=== PATIENT | male | born 1945 | race Two or more races ===

== ENCOUNTER 2024-09-05 11:04 | Inpatient (IN) | payer MEDICARE, BC, SELFPAY ==
[2024-09-05] VITALS (12 sets, daily range): BP systolic 68–136; BP diastolic 51–67; PULSE 65–96; RESP 16–96; TEMP 36.1–38; O2SAT 94–99; BMI 25.7
--- NOTE | 2024-09-05 | XR_ITS ---
Examinations: MRI Brain without intravenous contrast. MRA brain without intravenous contrast. 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 The optic chiasm and infundibular stalk are not remarkable. Prepontine and interpeduncular cisterns are not enlarged. No localized enlargement of the medulla or macey. Fourth ventricle and cerebellar tonsils normal in position. Subacute hemorrhage is not seen. Fourth ventricle is midline. Mass in the cerebellopontine angle region is not evident. 7th and 8th nerve complexes exhibits symmetry. Globes are symmetrical with no retro-orbital mass. Increased white matter signal moderate Diffusion-weighted images demonstrate no focus of restricted diffusion Mass-effect upon the ventricular system is not identified. MRA carotid images no significant carotid stenoses. MRA brain images no large vessel occlusions Impression: Negative for acute hemorrhage mass effect or midline shift No acute infarct No large vessel occlusions
--- NOTE | 2024-09-05 11:19 | XR_ITS ---
Examination: CTA carotids with intravenous contrast CTA brain, head with intravenous contrast. 2-D sagittal, coronal reconstructions. 3-D reconstructions. Exam date and time: September 05, 2024 1125 hours INDICATIONS: Stroke alert, onset right-sided body weakness with slurred speech beginning CTDI: vol (mGy) 39.2 DLP: (mGycm) 473 Technique: Multiple CTA axial brain, head carotid images post intravenous contrast injection 75 cc, [id number]. 2-D sagittal, coronal reconstructions. 3-D reconstructions, 3-D post processing including vascular maximum intensity projection images. Low dose protocols were performed. One or more of the following dose reduction techniques were used; automated exposure control, adjustment of the mA and/or KV according to patient size, use of iterative reconstruction technique. Findings: No significant neck arterial stenoses No common carotid carotid bifurcation or significant internal carotid artery stenoses Dominant left vertebral artery with no critical stenoses No cerebral large vessel arterial occlusions thrombus dissection or cerebral aneurysm IMPRESSION: No significant neck arterial stenoses No cerebral large vessel arterial occlusions, thrombus, dissection or cerebral aneurysm Recommend repeat brain MRI MRA without contrast stroke protocol follow-up
--- NOTE | 2024-09-05 11:19 | EKG_ITS ---
[facility] (Formerly [facility]) Test Date: 2024-09-05 Pat Name: FARZANEH PRICE Department: Room: - Gender: Male [employer] Teacher: NEYMAR : 1945 Requested By: Moises Land Order Number: [id number] Reading MD: Moises Ladn Measurements Intervals [place] Rate: 58 P: [place]: QRS: -34 QRSD: 93 T: -29 QT: 432 QTc: 425 Interpretive Statements ATRIAL FIBRILLATION WITH SLOW VENTRICULAR RESPONSE MARKED LEFT AXIS DEVIATION LOW QRS VOLTAGE IN PRECORDIAL LEADS POSSIBLE ANTERIOR MYOCARDIAL INFARCTION , PROBABLY OLD Compared to ECG 07/20/2024 16:30:24 No significant changes /[id number]
--- NOTE | 2024-09-05 11:19 | XR_ITS ---
Examination: CT brain head without contrast. 2-D sagittal coronal reconstructions Date and time of exam:September 05, 2024 11:22 AM Comparison July 20, 2024 INDICATIONS: Stroke alert, onset focal neurologic deficit today, right-sided body weakness slurred speech beginning this morning, 8mm acute infarct left basal ganglia on brain MRI July 21, 2024 CTDI: vol (mGy):52.9 DLP: (mGycm):1151 Technique: Multiple CT axial sections of the brain have been obtained, 5 mm slice thickness. Contrast has not been administered. 2-D sagittal, coronal reconstructions have been obtained Low dose protocols were performed. One or more of the following dose reduction techniques were used; automated exposure control, adjustment of the mA and/or KV according to patient size, use of iterative reconstruction technique. Findings: No significant ventricular enlargement. Subcentimeter bilateral indeterminate basal ganglia infarcts Axial image 31 demonstrates 11 mm left brainstem infarct pontine level Intra-axial or extra-axial hemorrhage density is not seen. No mass effect or midline shift Basal cisterns are not remarkable. Fourth ventricle is midline. Cranial vault intact. Impression: Negative for acute hemorrhage, mass effect or midline shift Bilateral basal ganglia and left brainstem infarcts as above, the 11 mm left brainstem infarct may be acute, the appearance should be clinically correlated Recommend repeat brain MRI MRA stroke protocol follow-up
[2024-09-05 11:32] LABS: Basophils # (Auto) 0.1 Thou/mm3 (0.0-0.2); Basophils % (Auto) 0 % (0-2.5); Eosinophils # (Auto) 0.1 Thou/mm3 (0.0-0.5); Eosinophils % (Auto) 0 % (0-10); Hematocrit 39.8 % (41.0-53.0); Hemoglobin 13.1 g/dL (13.5-16.0); Immature Granulocytes % (Auto) 1 % (0-0); Immature Granulocytes Auto 0.09 Thou/mm3 (0.00-0.00); Lymphocytes # (Auto) 0.4 Thou/mm3 (1.0-4.8); Lymphocytes % (Auto) 2 % (10-50); Mean Corpuscular HGB Conc 32.9 g/dl (31.0-37.0); Mean Corpuscular Hemoglobin 30.4 pg (25.0-35.0); Mean Corpuscular Volume 92 fL (80-100); Monocytes # (Auto) 0.5 Thou/mm3 (0.0-0.8); Monocytes % (Auto) 2 % (0-12); Neutrophils # (Auto) 18.6 Thou/mm3 (1.8-7.7); Neutrophils % (Auto) 94 % (37-80); Nucleated Red Blood Cell % 0 /100 WBC (0); Platelet Count 165 Thou/mm3 (140-440); RDW Standard Deviation 48.1 fL (35.1-43.9); Red Blood Count 4.31 Miln/mm3 (4.50-5.90); White Blood Count 19.7 Thou/mm3 (3.8-10.6)
[2024-09-05 11:44] LABS: HCG Titer if Positive Negative
--- NOTE | 2024-09-05 11:46 | PD.EDNEURO ---
Neuro Symptoms Deficit-RME/HPI General Chief Complaint: Neuro Symptoms/Deficit Stated Complaint: POSSIBLE CVA Time Seen by Provider: 09/05/24 11:19 Arrival date/time: 09/05/24 11:04 RME / HPI RME / HPI Narrative: 79 year old male with history of CVA, hypertension, diabetes, hyperlipidemia presents to the ED BIBA from home for evaluation of right sided weakness and slurred speech today. Reports residual weakness and slurred speech after CVA in 2020. However, at ~ 08:00 am today he required assistance getting out of bed and while in getting in the shower noted he was unable to lift the right leg over the shower rail. States he lowered himself down to the floor and called 911 for help. Patient states he went to bed at his usual state of health at 20:00 hours last night. Denied head injury or LOC. Per medics, prehospital BS 107. No other complaints reported. Denies fevers, chills, chest pain, cough, shortness of breath, abdominal pain, or urinary symptoms. Neurologist: Dr. Aquino Related Data Home Medications ?Medication ?Instructions ?Recorded ?Confirmed carvedilol 3.125 mg tablet (Coreg) 6.25 mg PO BID 10/10/20 09/05/24 metformin 1,000 mg tablet 1,000 mg PO BIDAC 10/10/20 09/05/24 ferrous sulfate 325 mg (65 mg 325 mg PO QDAY 08/21/22 09/05/24 iron) tablet atorvastatin 80 mg tablet 80 mg PO QDAY 09/05/24 09/05/24 clopidogrel 75 mg tablet 75 mg PO QDAY 09/05/24 09/05/24 rosuvastatin 40 mg tablet 40 mg PO QPM 09/05/24 09/05/24 sacubitril 24 mg-valsartan 26 mg 1 tab PO BID 09/05/24 09/05/24 tablet (Entresto) sitagliptin phosphate 100 mg 100 mg PO QDAY 09/05/24 09/05/24 tablet (Januvia) Previous Rx's ?Medication ?Instructions ?Recorded empagliflozin 10 mg tablet 10 mg PO QDAY #30 tabs 07/24/24 (Jardiance) Allergies Allergy/AdvReac Type Severity Reaction Status Date / Time onion Allergy Mild Numbness Verified 01/29/23 17:55 Review of Systems Review of Systems Narrative Review of Systems: Constitutional: DENIES; Fevers Eyes: DENIES; Loss of vision Head/Ear/Nose: DENIES; Loss of hearing Throat: DENIES; Dysphagia Cardiovascular: DENIES; Chest pain, dyspnea or syncope Respiratory: DENIES; Shortness of breath Gastrointestinal: DENIES; Rectal bleeding or melena. Genitourinary: DENIES; Dysuria (painful or difficult urination) Musculoskeletal: DENIES; Arthralgia (pain in a joint),; Skin: DENIES; Rash Neurological: SEE HPI +Worsening weakness and slurred speech Psychiatric: DENIES; recent major life stressor, emotional problem, illicit drug use or abuse Endocrinology: DENIES; Weight change Hematologic/Lymphatic: DENIES; Abnormal bruising Allergic/Immunologic: DENIES; Urticaria (hives) Past Medical History Past Medical History NEUROLOGIC: Positive Neurological Disorders and Cerebrovascular Accident CARDIAC: Positive Cardiac Disorders, Hypercholesterolemia and Hypertension RESPIRATORY: Positive Sleep Apnea GENITOURINARY: Positive Genitourinary Disorders and Benign Prostatic Hyperplasia ENDOCRINE: Positive Endocrine Disorders and Diabetes Mellitus Type 2 HEMATOLOGIC: Positive Blood Disorders and Anemia OTHER HISTORY: Positive Hospitalization, Chicken Pox, Measles and Mumps Family History FAMILY HISTORY: Positive Family Cardiac Disorders and Family Surgery Surgical History SURGICAL: Positive Eye Surgery, Transurethral Resection and Open Reduction Internal Fixation Social History SMOKING STATUS: Never smoker SUBSTANCE USE: does not use ED Exam Narrative Physical exam: Physical Exam: General: The vital signs were reviewed. The patient is non-toxic, in no apparent distress and appears healthy with a patent airway, no respiratory distress and has no apparent circulatory problems. Head & Scalp: Normocephalic, atraumatic. Face: Appears normal and is without lesions, deformity. Ears: Left external pinna appears normal. Right external pinna appears normal. Eyes: The sclera is anicteric. No obvious photophobia. The Left and Right Orbit/Lid/Conjunctiva appears normal without swelling, discoloration or injection. Nose: The nose is without deformity, discharge or tenderness; Throat: Appears normal. The mucous membranes are pink and moist without exudates, redness or mass seen. The tongue appears normal. Neck: The neck is supple and no apparent mass or adenopathy. Chest: The chest wall is normal in size and symmetry and has no chest wall tenderness or crepitus. The patient displays normal ventilator effort without retractions, accessory muscle use and has adequate air movement bilaterally with no wheezes and no rales. Cardiovascular: Regular rate and rhythm; No murmurs, rubs, or gallops; Gastrointestinal: The abdomen appears normal. No obvious hernias or mass. The abdomen is soft and benign, non-distended, with no pain, no guarding and no rebound tenderness. Bowel sounds are present and normal sounding. No CVA tenderness. Genitourinary: Back/Spine: Nontender Extremities/Musculoskeletal/lymphatic: The bilateral upper and lower extremities are warm. There is no evidence of arterial insufficiency. There is no evidence of venous insufficiency/edema. The patient spontaneously moves bilateral upper and left lower extremities with no pain and no limitation of movement. There is no apparent, injury or trauma. Skin: The skin is warm, dry and intact. No rashes. No petechia. No purpura. No abnormal bruising. The color is appropriate with no cyanosis. Mental status/Psychiatric: Mental status is appropriate for age. The patient has no apparent delusions, visual hallucinations, no apparent audible hallucinations. The patient has no apparent suicidal thoughts/ideation and no apparent homicidal thoughts/ideation. Neurological: The patient is awake, alert, interactive, cordial, cooperative and is oriented to name and situation. The patient follows commands and answers historical question with no impairment. Patient has slurring of his speech but you can understand that he answers and follows commands well. There is no visual disturbance apparent. The pupils are equal and reactive bilaterally with normal eye movements and no diplopia The bilateral upper extremities have normal strength, normal range of motion and normal functioning. The left lower extremity has normal range of motion and strength the right leg is very weak 2/5 and can barely lift it off the table The gait, station and balance were not tested due to acuity Course Quality Measures Suspected type of Stroke: Non Acute Last known well (date): 09/04/24 Last known well (time): 20:00 Tenecteplase given: Reason(s) TPA not given: Outside the time window not given stroke Orders Category Date Time Status Admit to Inpatient Status Routine Admission 09/05/24 13:48 Active Patient Condition Routine Admission 09/05/24 13:48 Ordered Bedside Blood Glucose [facility] Care 09/05/24 13:53 Active Bedside Blood Glucose NOW Care 09/05/24 11:19 Completed Property Consultant NOW Care 09/05/24 11:19 Active Continuous Pulse Oximetry NOW Care 09/05/24 11:19 Completed EKG (ED ONLY) *Do not use* NOW Care 09/05/24 11:19 Completed Flu & Pneumonia Vaccine Screen ONCE Care 09/05/24 13:50 Active HOB > 30 Degrees All Times QSHIFT Care 09/05/24 13:53 Active In and Out Catheter NEEDED Care 09/05/24 11:19 Completed Insert IV NOW Care 09/05/24 11:19 Active MRI Screening NOW Care 09/05/24 12:17 Active MRI Screening NOW Care 09/05/24 13:57 Completed NIH Stroke Scale now Care 09/05/24 11:19 Completed NPO NOW Care 09/05/24 11:19 Active Neuro Check Q15MIN Care 09/05/24 11:19 Active Neuro Check Q4H Care 09/05/24 13:50 Active Notify provider NEEDED Care 09/05/24 13:48 Active Nurse Swallow Screen X1 Care 09/05/24 13:53 Completed Nurse Swallow Screen x1 Care 09/05/24 11:19 Active Consult to Neurology / Tele-Neurology Routine Cons 09/05/24 11:19 Active PT [Referral Physical Therapy] Stat Cons 09/05/24 13:53 Active Referral Speech Therapy Stat Cons 09/05/24 13:53 Active CA echo doppler complete Stat Exams 09/05/24 13:[address] angio stroke protocol Stat Exams 09/05/24 11:[address] stroke protocol Stat Exams 09/05/24 11:19 Completed EKG (ED Only) Stat Exams 09/05/24 11:19 Ordered MR stroke protocol Stat Exams 09/05/24 Completed Blood Culture (Lab) Stat Lab 09/05/24 13:11 Received CBC AM DRAW Lab 09/06/24 05:00 Ordered CBC AM DRAW Lab 09/07/24 05:00 Ordered CBC AM DRAW Lab 09/08/24 05:00 Ordered CBC AM DRAW Lab 09/09/24 05:00 Ordered CBC AM DRAW Lab 09/10/24 05:00 Ordered CBC Stat Lab 09/05/24 11:20 Completed Comprehensive Metabolic Panel AM DRAW Lab 09/06/24 05:00 Ordered Comprehensive Metabolic Panel AM DRAW Lab 09/07/24 05:00 Ordered Comprehensive Metabolic Panel AM DRAW Lab 09/08/24 05:00 Ordered Comprehensive Metabolic Panel AM DRAW Lab 09/09/24 05:00 Ordered Comprehensive Metabolic Panel AM DRAW Lab 09/10/24 05:00 Ordered Comprehensive Metabolic Panel Stat Lab 09/05/24 11:20 Completed Drug Screen,Urine Stat Lab 09/05/24 13:12 Completed Glycohemoglobin w (eAG) Routine Lab 09/05/24 11:44 Completed HCG Titer if Positive Stat Lab 09/05/24 11:20 Completed Lactate (Lactic Acid) Stat Lab 09/05/24 13:20 Completed Lipid Panel AM DRAW Lab 09/06/24 05:00 Ordered Magnesium AM DRAW Lab 09/06/24 05:00 Ordered Magnesium AM DRAW Lab 09/07/24 05:00 Ordered Magnesium AM DRAW Lab 09/08/24 05:00 Ordered Magnesium AM DRAW Lab 09/09/24 05:00 Ordered Magnesium AM DRAW Lab 09/10/24 05:00 Ordered Magnesium Stat Lab 09/05/24 11:20 Completed Partial Thromboplastin Time Stat Lab 09/05/24 11:44 Completed Phosphorous AM DRAW Lab 09/06/24 05:00 Ordered Phosphorous AM DRAW Lab 09/07/24 05:00 Ordered Phosphorous AM DRAW Lab 09/08/24 05:00 Ordered Phosphorous AM DRAW Lab 09/09/24 05:00 Ordered Phosphorous AM DRAW Lab 09/10/24 05:00 Ordered Procalcitonin Stat Lab 09/05/24 13:20 Completed Prothrombin Time with INR Stat Lab 09/05/24 11:44 Completed Thyroid Stimulating Hormone AM DRAW Lab 09/06/24 05:00 Ordered Troponin I Stat Lab 09/05/24 11:20 Completed Urinalysis Stat Lab 09/05/24 13:12 Completed Urine Culture Stat Lab 09/05/24 11:19 Received Venous Blood Gas Stat Lab 09/05/24 13:20 Completed Acetaminophen Tab [Tylenol Tab] Med 09/05/24 13:48 Active 650 mg PO Q6H PRN Acetaminophen Tab [Tylenol Tab] Med 09/05/24 13:50 Active 650 mg PO Q6H PRN Clopidogrel [Plavix] Med 09/05/24 14:00 Discontinued 75 mg PO QDAY Dextrose 50% Syr [D50w Syringe Abboject] Med 09/05/24 13:53 Active 25 ml IV Q15MIN PRN Dextrose 50% Syr [D50w Syringe Abboject] Med 09/05/24 13:53 Active 50 ml IV Q15MIN PRN Docusate Sod [Colace] Med 09/06/24 09:00 Active 100 mg PO QDAY Enoxaparin [Lovenox] Med 09/05/24 14:00 Active 40 mg SC QDAY Glucagon Inj Med 09/05/24 13:53 Active 1 mg IM Q15MIN PRN INSULIN LISPRO (AdmeLOG) [HumaLOG] Med 09/05/24 17:00 Active See Protocol SC ACHS Labetalol IV [Trandate IV] Med 09/05/24 13:53 Discontinued 10 mg IVP Q6H PRN Ondansetron Inj [Zofran Inj] Med 09/05/24 11:19 Discontinued 4 mg IV Q4HR PRN Ondansetron Inj [Zofran Inj] Med 09/05/24 13:48 Active 4 mg IV Q6H PRN POTASSIUM CHL 10 mEq IVPB [Kcl Ivpb] Med 09/05/24 12:36 Discontinued 10 meq in 100 ml IV Q1H Piper/Tazo Inj [Zosyn Inj] 3.375 gm Med 09/05/24 13:54 Discontinued Sodium Chloride 0.9% (P) [Ns 0.9% (P)] 50 ml IV X1 Sodium Chloride 0.9% 1000 ml [Ns] 1,000 ml Med 09/05/24 12:56 Discontinued IV 1,682 mls/hr Sodium Chloride 0.9% 1000 ml [Ns] 2,259 ml Med 09/05/24 12:56 Discontinued IV 2,259 mls/hr Code Status Routine Oth 09/05/24 13:48 Ordered EKG (RT) Stat RT 09/05/24 13:50 Ordered Oxygen Delivery NOW RT 09/05/24 11:19 Active Vital Signs Vital signs: Vital Signs Temperature 98.5 F 09/05/24 11:06 Pulse Rate 86 09/05/24 11:06 Respiratory Rate 20 09/05/24 11:06 Blood Pressure 101/67 09/05/24 11:06 Pulse Oximetry (%) 94 L 09/05/24 11:06 Oxygen Delivery Method Nasal Cannula 09/05/24 11:06 Oxygen Flow Rate 2 09/05/24 11:06 Pulse ox is 94% on 2L nasal cannula which is adequate. Neuro Symptoms / Deficit MDM Narrative MDM Narrative:: Patient is a 79-year-old who has previous stroke on 1 a month ago who comes in with acute onset of right leg weakness and slurred speech with fairly good use of the right arm. Patient woke up this morning at 8:00 with the symptoms and was fine last night at 10 PM. There is no injury or trauma. Stroke alert was called on arrival and CT of the brain reveals ct reveals>>Bilateral basal ganglia and left brainstem infarcts as above, the 11 mm left brainstem infarct may be acute, the appearance should be clinically correlated . CTA was negative. The teleneurologist Dr. Berman called back we discussed the case at length and again did not feel this patient would be a tPA candidate since the onset is unknown and since the patient had a stroke a month ago. Because the patient had GI bleeding with aspirin in the past this is not a candidate for aspirin and will continue the blood thinner patient is already on. Dr. Waylon myrick and our neurologist was called and she will be consulted and the hospitalist Dr. Roth was called and they will be admitting. 1250: Notified by the nurse that the patient has a temperature of 100.4F. Additionally reported she was unable to measure a blood pressure. While in the room patient has a very palpable radial pulse and the manual blood pressure came back 108 systolic. Patient is A-fib with rate 90 range. Patient is alert and awake and does not have any change in mental status when compared to original Rectal temperature being 100.41 has started Zosyn as soon as the urine was collected by catheter specimen. The urine evidently appeared quite cloudy. Resident was updated on the change of status recently as early uroseptic. Because of the fever and the leukocytosis a septic alert was called. Urine was collected by catheter specimen had 221 white cells most likely the source for the fever. Lactic acid came back slightly elevated at 2.5. The patient got Zosyn soon after urine was collected. Patient tolerated the 20 cc/kg bolus heart rate was doing fine blood pressure was adequate and no further fluids were given in the emergency department. Care was given over to the hospitalist team. Chest x-ray was done which was negative for any infiltrates no effusion heart size is slightly enlarged. Resident was updated and will be admitting for both of stroke and for the UTI and possible sepsis. Patient data External records reviewed:: [facility] previous records (I reviewed admission from 07/20/2024 through 07/24/2024) Clinical information provided by:: patient and EMS (Provided prehospital course ) Social determinants that could affect healthcare access:: none Patient has the following chronic illnesses:: CVA, hypertension, diabetes, hyperlipidemia How is presenting disease/condition affected by chronic disease/condition?: exacerbated by Evaluation data The following diagnostics were reviewed and interpreted by me:: lab results, radiology exam(s) and EKG tracing(s) (Atrial fibrillation, rate 95, no STEMI) Lab and/or radiology exams considered but not ordered:: None Interpretation Summary: Ordering Physician: Moises Land MD Date of Service: 09/05/24 Procedure(s): CT stroke protocol Accession Number(s): [id number] cc: Moises Land MD; Angel Amaya MD~ Examination: CT brain head without contrast. 2-D sagittal coronal reconstructions Date and time of exam:September 05, 2024 11:22 AM Comparison July 20, 2024 INDICATIONS: Stroke alert, onset focal neurologic deficit today, right-sided body weakness slurred speech beginning this morning, 8mm acute infarct left basal ganglia on brain MRI July 21, 2024 CTDI: vol (mGy):52.9 DLP: (mGycm):1151 Technique: Multiple CT axial sections of the brain have been obtained, 5 mm slice thickness. Contrast has not been administered. 2-D sagittal, coronal reconstructions have been obtained Low dose protocols were performed. One or more of the following dose reduction techniques were used; automated exposure control, adjustment of the mA and/or KV according to patient size, use of iterative reconstruction technique. Findings: No significant ventricular enlargement. Subcentimeter bilateral indeterminate basal ganglia infarcts Axial image 31 demonstrates 11 mm left brainstem infarct pontine level Intra-axial or extra-axial hemorrhage density is not seen. No mass effect or midline shift Basal cisterns are not remarkable. Fourth ventricle is midline. Cranial vault intact. Impression: Negative for acute hemorrhage, mass effect or midline shift Bilateral basal ganglia and left brainstem infarcts as above, the 11 mm left brainstem infarct may be acute, the appearance should be clinically correlated Recommend repeat brain MRI MRA stroke protocol follow-up Dictated By: Angel Amaya MD Signed By: <Electronically signed by Angel Amaya MD in OV> 09/05/24 1130 Ordering Physician: Moises Land MD Date of Service: 09/05/24 Procedure(s): CT angio stroke protocol Accession Number(s): [id number] cc: Sanjay Paul MD; Moises Land MD; Angel Amaya MD~ Examination: CTA carotids with intravenous contrast CTA brain, head with intravenous contrast. 2-D sagittal, coronal reconstructions. 3-D reconstructions. Exam date and time: September 05, 2024 1125 hours INDICATIONS: Stroke alert, onset right-sided body weakness with slurred speech beginning CTDI: vol (mGy) 39.2 DLP: (mGycm) 473 Technique: Multiple CTA axial brain, head carotid images post intravenous contrast injection 75 cc, [id number]. 2-D sagittal, coronal reconstructions. 3-D reconstructions, 3-D post processing including vascular maximum intensity projection images. Low dose protocols were performed. One or more of the following dose reduction techniques were used; automated exposure control, adjustment of the mA and/or KV according to patient size, use of iterative reconstruction technique. Findings: No significant neck arterial stenoses No common carotid carotid bifurcation or significant internal carotid artery stenoses Dominant left vertebral artery with no critical stenoses No cerebral large vessel arterial occlusions thrombus dissection or cerebral aneurysm IMPRESSION: No significant neck arterial stenoses No cerebral large vessel arterial occlusions, thrombus, dissection or cerebral aneurysm Recommend repeat brain MRI MRA without contrast stroke protocol follow-up Dictated By: Angel Amaya MD Signed By: <Electronically signed by Angel Amaya MD in OV> 09/05/24 1159 Medications / Prescriptions Medications or Prescriptions considered but not ordered:: None Medication administrations:: Medication Administration History Acetaminophen (Acetaminophen 325 Mg Tablet) 650 mg PO Q6H PRN PRN Reason: Fever >101.5 Stop: 10/05/24 13:47 Acetaminophen (Acetaminophen 325 Mg Tablet) 650 mg PO Q6H PRN PRN Reason: PAIN SCALE 1-3 (mild Stop: 10/05/24 13:49 Atorvastatin Calcium (Atorvastatin Calcium 20 Mg Tablet) 80 mg PO HS [facility] Stop: 10/05/24 20:59 Clopidogrel Bisulfate (Clopidogrel Bisulfate 75 Mg Tablet) 75 mg PO QDAY GAUDENCIO Stop: 10/06/24 07:59 Dextrose (Dextrose 50%-Water Inj 50 Ml Syringe) 25 ml IV Q15MIN PRN PRN Reason: BG 50-70 responsive npo pt Stop: 10/05/24 13:52 Dextrose (Dextrose 50%-Water Inj 50 Ml Syringe) 50 ml IV Q15MIN PRN PRN Reason: BG <50 OR BG <70 & pt unresponsive Stop: 10/05/24 13:52 Docusate Sodium (Docusate Sod 100 Mg Capsule) 100 mg PO QDAY [facility]; Protocol Stop: 10/06/24 08:59 Enoxaparin Sodium (Enoxaparin Sod Inj 40 Mg/0.4 Ml Syringe) 40 mg SC QDAY [facility] Stop: 09/19/24 13:59 Last Admin: 09/05/24 14:57 Dose: 40 mg Documented By: GM Glucagon (Glucagon Inj 1 Mg Vial) 1 mg IM Q15MIN PRN PRN Reason: BG <70, and no IV access Ceftriaxone Sodium/Dextrose (Rocephin/D5w 1gm Iv Premix) 50 mls @ 100 mls/hr IV QDAY [facility] Stop: 09/12/24 14:44 Last Admin: 09/05/24 16:30 Dose: 100 mls/hr Documented By: REBEKAH Magnesium Sulfate (Magnesium Sulfate Ivpb) 4 gm in 50 mls @ 12.5 mls/hr IV X1 ONE Stop: 09/05/24 19:55 Last Admin: 09/05/24 18:10 Dose: 12.5 mls/hr Documented By: REBEKAH Insulin Human Lispro (Insulin Lispro (Admelog) 1 Unit/0.01 Ml Unit) [facility]; Protocol Stop: 10/05/24 16:59 Labetalol HCl (Labetalol Inj 5 Mg/Ml Vial 20 Ml) 10 mg IVP Q6H PRN PRN Reason: SBP>220 Stop: 10/05/24 13:59 Ondansetron HCl (Ondansetron Inj 2 Mg/Ml Inj 2 Ml) 4 mg IV Q6H PRN; Protocol PRN Reason: NAUSEA OR VOMITING Stop: 10/05/24 13:47 Pantoprazole Sodium (Pantoprazole Inj 40 Mg Vial) 40 mg IV QDAY [facility] Stop: 10/05/24 16:14 Last Admin: 09/05/24 16:30 Dose: 40 mg Documented By: JT Discontinued Medications Clopidogrel Bisulfate (Clopidogrel Bisulfate 75 Mg Tablet) 75 mg PO QDAY [facility] Stop: 10/05/24 13:59 Last Admin: 09/05/24 14:57 Dose: 75 mg Documented By: GM Potassium Chloride (Kcl Ivpb) 10 meq in 100 mls @ 100 mls/hr IV Q1H [facility] Stop: 09/05/24 16:35 Last Admin: 09/05/24 18:11 Dose: 100 mls/hr Documented By: Infusion: 09/05/24 15:52 Dose: Infused Documented By: Admin: 09/05/24 14:52 Dose: 100 mls/hr Documented By: Infusion: 09/05/24 14:12 Dose: Infused Documented By: Admin: 09/05/24 13:12 Dose: 100 mls/hr Documented By: GM Sodium Chloride (Ns) 1,000 mls @ 1,682 mls/hr IV .Q36M ONE Stop: 09/05/24 13:31 Last Admin: 09/05/24 13:06 Dose: 1,682 mls/hr Documented By: GM Sodium Chloride (Ns) 2,259 mls @ 2,259 mls/hr 30 ml/kg infuse over 60 min (2259 ml) IV .Q1H ONE Stop: 09/05/24 13:55 Last Admin: 09/05/24 13:06 Dose: Not Given Documented By: GM Non-Admin Reason: Discontinued Piperacillin Sod/Tazobactam (Sod 3.375 gm/ Sodium Chloride) 50 mls @ 100 mls/hr IV X1 ONE Stop: 09/05/24 14:23 Last Admin: 09/05/24 15:07 Dose: 100 mls/hr Documented By: GM Magnesium Sulfate (Magnesium Sulfate Ivpb) 2 gm in 50 mls @ 25 mls/hr IV X1 ONE Stop: 09/05/24 17:55 Last Admin: 09/05/24 18:11 Dose: Not Given Documented By: JT Non-Admin Reason: Per . 4g given Labetalol HCl (Labetalol Inj 5 Mg/Ml Vial 20 Ml) 10 mg IVP Q6H PRN PRN Reason: BP 220/110 Stop: 10/05/24 13:59 Ondansetron HCl (Ondansetron Inj 2 Mg/Ml Inj 2 Ml) 4 mg IV Q4HR PRN PRN Reason: NAUSEA OR VOMITING Stop: 10/05/24 11:18 Potassium Chloride (Potassium Chloride 20 Meq Tabcr) 40 meq PO X1 ONE Stop: 09/05/24 16:43 See above Consultations Consultation(s) initiated? (list below): Yes Consultation #1 (Physician, Specialty, Details): I spoke with teleneurologist Dr. Berman. States patient is out of the 4.5 time window and not tpa candidate. Time: 12:10 Consultation #2 (Physician, Specialty, Details): I spoke with patients neurologist Dr. Aquino. Discussed patients PMHx, HPI, ED course, exam findings, labs, and radiology results. She agrees to consult. Time: 12:14 Consultation #3 (Physician, Specialty, Details): I spoke with resident Dr. Ingram working with Dr. Valverde. Discussed patients PMHx, HPI, ED course, exam findings, labs, and radiology results. The hospitalist agree to accept the patient for admission. Time: 12:17 Diagnosis Neuro Differential Diagnosis: subarachnoid hemorrhage, cerebrovascular accident and transient cerebral ischemia Most likely diagnosis given after review of the tests above:: CVA Right sided weakness Admission Indicated Admission indicated?: indicated Admission Request Was there a request for admission?: Yes Admission Attestation Admission request attestation: Discussed case with [] from Hospitalist service regarding admission. Discussed patients ED course, exam findings, labs, and radiology results. The Hospitalist [agrees,declines] to accept the patient for admission. Disposition Plan Disposition Plan: Admit Critical Care Time Critical Care Time Critical Care Time: Yes Total Critical Care Time (min.): 55 Attestation: The high probability of sudden, clinically significant deterioration in the patient's condition required the highest level of my preparedness to intervene urgently. The services I provided to this patient were to treat and/or prevent clinically significant deterioration. Services included the following: chart data review, reviewing nursing notes and/or old charts, documentation time, property consultant collaboration regarding findings and treatment options, medication orders and management, direct patient care, vital sign assessments and ordering, interpreting and reviewing diagnostic studies and lab tests. Aggregate critical care time includes only time during which I was engaged in work directly related to the patient's care, as described above, whether at bedside or elsewhere in the Emergency Department. It did not include time spent performing other reported procedures or the services of residents, students, nurses or physician assistants. Discharge Plan Plan Patient Disposition: Admit Acute Care w/in Hospital Disposition Comment: Hospitalist admit Dr Aquino consult Problem List Clinical Impression: Acute cerebrovascular accident (CVA), Right leg weakness, Slurred speech, Acute hypokalemia, Leukocytosis, Fever, Urinary tract infection
[2024-09-05 11:50] LABS: Alanine Aminotransferase 37 U/L (10-49); Albumin, Serum 3.1 gm/dL (3.4-4.8); Albumin/Globulin Ratio 1.1 (1.2-2.2); Alkaline Phosphatase 136 U/L (46-116); Anion Gap 12 (7-16); Aspartate Amino Transferase 51 U/L (0-34); BUN/Creatinine Ratio 15 Ratio (12-20); Bilirubin,Total 0.6 mg/dL (0.3-1.2); Blood Urea Nitrogen 15 mg/dL (9-23); Calcium 7.5 mg/dL (8.3-10.6); Calcium (Corrected) 8.2 mg/dL (8.5-10.1); Carbon Dioxide 19.9 mMol/L (20.0-31.0); Chloride 112 mMol/L (98-107); Estimated Creatinine Clearance 62.8 mL/min (>60); Globulin 2.9 gm/dL (2.3-3.5); Glucose 81 mg/dL (74-106); Magnesium 1.2 mg/dL (1.6-2.6); Osmolality,Calculated 286 (275-295); Sodium 144 mMol/L (136-145); Troponin I < 0.020 ng/mL (0.0-0.045); eGFR > 60 See Note
[2024-09-05 12:12] LABS: INR 1.3 (0.9-1.3); Partial Thromboplastin Time 26.1 Seconds (22.0-36.0); Prothrombin Time 13.5 Seconds (9.0-12.2)
--- NOTE | 2024-09-05 12:17 | PD.TNEURO ---
Tele Neuro Consultation Consultation Date 09/05/24 Most Recent Vital Signs Last Vital Signs Temp 98.9 F 09/05/24 11:37 Pulse 92 09/05/24 12:06 Resp 20 09/05/24 12:00 BP 107/67 09/05/24 11:37 Pulse Ox 96 09/05/24 11:37 O2 Del Method Room Air 09/05/24 11:37 O2 Flow Rate 2 09/05/24 11:06 Laboratory-Coagulation Panel PT 13.5 Seconds (9.0-12.2) H 09/05/24 11:44 INR 1.3 (0.9-1.3) 09/05/24 11:44 APTT 26.1 Seconds (22.0-36.0) 09/05/24 11:44 Consultation Narrative [facility] Tele[facility]rology Consult Services Patient Name:???Mark Mann Date of :???1945 Identification Number:??? Date of Service:???09/05/2024 11:19:38 Diagnosis:?I63.89 - Cerebrovascular accident (CVA) due to other mechanism ([facility]) Impression: ?Patient is an 79 year old man. 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 History of severe bleeding on ASA in past and does not take it. He woke up today at 0800 PST and he had difficulty sitting up and had slurred speech which are new symptoms. He was doing well with recovering with his recent stroke last month. Today he noticed right sided weakness in arm and more in right leg. LKN last night at bedtime 09/04/2024 at 2000 EST, did have chills over night, concerned he might have UTI. ? ?Exam with dysarthria, right arm and right leg weakness. The patient was not a candidate for IV thrombolytics due to LKN > 4.5 hrs and due to to a recent stroke within the past 90 days. ? ?CT head with concern for acute left brainstem infarction which is new. CTA head and neck without acute findings, including no LVO. Concern for small vessel stroke. Recommend admission. Hold off ASA as patient declines ASA due to history of severe bleeding on ASA in past. Our recommendations are outlined below. Recommendations: ? Stroke/Telemetry Floor ? Neuro Checks ? Bedside Swallow Eval ? DVT Prophylaxis ? IV Fluids, Normal Saline ? Head of Bed 30 Degrees ? Euglycemia and Avoid Hyperthermia (PRN Acetaminophen) ? Antihypertensives PRN if Blood pressure is greater than 220/120 or there is a concern for End organ damage/contraindications for permissive HTN. If blood pressure is greater than 220/120 give labetalol PO or IV or Vasotec IV with a goal of 15% reduction in BP during the first 24 hours. ?MRI head without contrast ?Continue plavix Sign Out: ? Discussed with Emergency Department Provider Advanced Imaging:CTA Head and Neck Completed. LVO:No Patient in not a candidate for SARA Metrics: Last Known Well: 09/04/2024 20:00:00 Dispatch Time: 09/05/2024 11:19:38 Arrival Time: 09/05/2024 11:06:00 Initial Response Time: 09/05/2024 11:27:21Symptoms: right sided weakness, dysarthria . Initial patient interaction: 09/05/2024 11:30:39 NIHSS Assessment Completed: 09/05/2024 11:43:46Patient is not a candidate for Thrombolytic. Thrombolytic Medical Decision: 09/05/2024 11:43:52Patient was not deemed candidate for Thrombolytic because of following reasons: LKW outside 4.5 hr window. . Significant head trauma or stroke in previous [address] head showed no acute hemorrhage or acute core infarct. Negative for hemorrhage. Bilateral basal ganglia infarctions and left brainstem infarction, left brainstem infarction possible acute. Primary Provider Notified of Diagnostic Impression and Management Plan on: 09/05/2024 12:06:54 History of Present Illness:Patient is a 79 year old Male. Patient was brought by EMS for symptoms of right sided weakness, dysarthria . Patient is an 79 year old man. 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 History of severe bleeding on ASA in past and does not take it. He woke up today at 0800 PST and he had difficulty sitting up and had slurred speech which are new symptoms. He was doing well with recovering with his recent stroke last month. Today he noticed right sided weakness in arm and more in right leg. LKN last night at bedtime 09/04/2024 at 2000 EST, did have chills over night, concerned he might have UTI. ? Past Medical History: ?Hypertension ?Diabetes Mellitus ?Stroke Other PMH:? Gi bleed, anemia Medications: No Anticoagulant use? Antiplatelet use:?Yes?plavix Reviewed EMR for current medications Other Medications Pertinent To Assessment Include: ASAS causing severe bleeding side effects in past Allergies:? Reviewed Social History: Drug Use: No Family History: There is no family history of premature cerebrovascular disease pertinent to this consultation ROS : 14 Points Review of Systems was performed and was negative except mentioned in HPI. Past Surgical History: There Is No Surgical History Contributory To Today?s Visit ? Examination: BP(103/64),?Pulse(80),?Blood Glucose(103) 1A: Level of Consciousness - Alert; keenly responsive?+ 0 1B: Ask Month and Age - Both Questions Right?+ 0 1C: Blink Eyes & Squeeze Hands - Performs Both Tasks?+ 0 2: Test Horizontal Extraocular Movements - Normal?+ 0 3: Test Visual Lane - No Visual Loss?+ 0 4: Test Facial Palsy (Use Grimace if Obtunded) - Normal symmetry?+ 0 5A: Test Left Arm Motor Drift - No Drift for 10 Seconds?+ 0 5B: Test Right Arm Motor Drift - Drift, but doesn't hit bed?+ 1 6A: Test Left Leg Motor Drift - No Drift for 5 Seconds?+ 0 6B: Test Right Leg Motor Drift - Some Effort Against [place]?+ 2 7: Test Limb Ataxia (FNF/Heel-Andres) - No Ataxia?+ 0 8: Test Sensation - Normal; No sensory loss?+ 0 9: Test Language/Aphasia - Normal; No aphasia?+ 0 10: Test Dysarthria - Mild-Moderate Dysarthria: Slurring but can be understood?+ 1 11: Test Extinction/Inattention - No abnormality?+ 0 NIHSS Score:?4 Pre-Morbid Modified Girard Scale:0 Points = No symptoms at all Spoke with :?Dr Land This consult was conducted in real time using interactive audio and video technology. Patient was informed of the technology being used for this visit and agreed to proceed. Patient located in hospital and provider located at home/office setting. Patient is being evaluated for possible acute neurologic impairment and high probability of imminent or life-threatening deterioration. I spent total of 30 minutes providing care to this patient, including time for face to face visit via telemedicine, review of medical records, imaging studies and discussion of findings with providers, the patient and/or family. Dr Mario Berman [facility] For Inpatient follow-up with [facility] physician please call [facility] at . As we are not an outpatient service for any post hospital discharge needs please contact the hospital for assistance. If you have any questions for the [facility] physicians or need to reconsult for clinical or diagnostic changes please contact us via [facility] at . ?
[2024-09-05 12:22] LABS: Band Neutrophils (Manual) 32 % (0-6); Neutrophils (Manual) 65 % (50-70)
[2024-09-05 12:23] LABS: Lymphocytes (Manual) 0 % (20-44); Metamyelocytes (Manual) 1 % (0-0); Monocytes (Manual) 2 % (2-9); Toxic Vacuolation 1+
--- NOTE | 2024-09-05 13:00 | PC.NURSE ---
Dr. Montes at bedside assessing pt.
[2024-09-05] MEDS: SODIUM CHLORIDE 0.9% 1000 ML 1,000 ML 1682 ML IV (13:06)
[2024-09-05] MEDS: POTASSIUM CHL 10 mEq IVPB 10 MEQ/100 ML BAG 100 MEQ IV ×4 (13:12→19:24)
[2024-09-05 13:17] LABS: Collection Type, Urine Clean Catch
[2024-09-05 13:28] LABS: Amphetamine/Methamp Scrn,U Negative (Negative); Barbiturate Screen,Urine Negative (Negative); Benzodiazepines Screen,Urine Negative (Negative); Benzoylecgonine Screen, Ur Negative (Negative); Fentanyl Screen,Urine Negative (Negative); Opiate Screen,Urine Negative (Negative); THC Screen,Urine Negative (Negative)
--- NOTE | 2024-09-05 13:30 | PC.CC ---
Patient is a 79 year-old male who presents to the hospital for CVA. Ginette VIVAS made [id number] contact with patient. ASW introduced self, role, and reason for visit. Patient appeared alert and oriented to self, location, and situation. At bedside was patient's sister Renata Gonzalez who patient provided consent to remain in the room during assessment. Patient was pleasant and engaged in initial assessment. Patient confirmed information on demographics and reports to living alone. However, patient's sister Renata and Daughter, Marcie Grimm are botth part of patient's support system. They are always available to help the patient with any needs he may encounter. Patient is able to ambulate with a rollator walker and completes his own ADLs. Patient does not use oxygen at home but has been on oxygen since being in the hospital. Patient receives primary care with [facility] and uses [facility] for prescription medications. Patient's next of kin is sister, Renata Gonzalez. Upon discharge patient intends to return home with the support of his family. career services director to follow-up with any discharge needs.
[2024-09-05 13:33] LABS: Bacteria,Urine 3+; Bilirubin,Urine Negative (Negative); Blood,Urine 2+ (Negative); Color,Urine Yellow (Lt Yel-Yel); Glucose, Urine 4+ (Negative); Hyaline Casts,Urine < 1 /hpf (0-1); Ketones,Urine Negative (Negative); Leukocyte Esterase,Urine Positive (Negative); Nitrite,Urine Negative (Negative); PH,Urine 5.5 (5.0-7.0); Protein,Urine 1+ (Neg - Trace); RBC,Urine 11 /hpf (0-3); Specific Gravity,Urine 1.031 (1.001-1.035); Squamous Epithelial Cell,Urine 4 /hpf (0-5); Transitional Epi Cells,Urine 1 /hpf (0-5); Urobilinogen,Urine Negative mg/dL (0.0-1.0); WBC,Urine 221 /hpf (0-5)
[2024-09-05 13:42] LABS: Base Excess, Venous 1 (-3-3); Lactate (Lactic Acid) 2.8 mMol/L (0.4-2.0); O2 Saturation, Venous 59 % (96-97); PCO2, Venous 44 mmHg (36-56); PO2, Venous 32 mmHg (15-58); pH, Venous 7.38 (7.33-7.66)
--- NOTE | 2024-09-05 13:50 | ECHO_ITS ---
Transthoracic Echo Report Ht (in): 71 Wt (lb): 185 Exam Location: Portable Status: Emergency Doctor Of Naprapathy: Rose Salvador Indications: Procedure Performed: BP: 92 / 58 HR: 98 Rhythm: Atrial fibrillation Technical Quality: Technically difficult study Contrast: Agitated Saline Total Dose (mL): MEASUREMENTS (Male / Female) Normal Values 2D ECHO LV Diastolic Diameter PLAX 4.9 cm 4.2 - 5.9 / 3.9 - 5.3 cm LV Systolic Diameter PLAX 3.6 cm IVS Diastolic Thickness 1.0 cm 0.6 - 1.0 / 0.6 - 0.9 cm LVPW Diastolic Thickness 1.0 cm 0.6 - 1.0 / 0.6 - 0.9 cm LV Relative Wall Thickness 0.4 LVOT Diameter 2.0 cm LA Volume Index 31.1 cm?/m? 16 - 28 cm?/m? Ascending Aorta Diameter 3.5 cm M-MODE Aortic Root Diameter MM 3.6 cm LA Systolic Diameter MM 3.9 cm LA Ao Ratio MM 1.1 AV Cusp Separation MM 2.2 cm DOPPLER AV Peak Velocity 109.0 cm/s AV Peak Gradient 4.8 mmHg AV Mean Gradient 2.0 mmHg AV Velocity Time Integral 24.1 cm LVOT Peak Velocity 73.9 cm/s LVOT Peak Gradient 2.2 mmHg LVOT Velocity Time Integral 13.7 cm LVOT Cardiac Index 2047.2 cm?/min?m? AV Area Cont Eq vti 1.8 cm? AV Area Cont Eq pk 2.1 cm? MV Peak Velocity 105.0 cm/s MV Peak Gradient 4.4 mmHg MV Mean Velocity 45.5 cm/s MV Mean Gradient 1.0 mmHg MV Area PHT 3.2 cm? Mitral E Point Velocity 92.0 cm/s Mitral A Point Velocity 13.6 cm/s Mitral E to A Ratio 6.8 LV E' Lateral Velocity 10.7 cm/s Mitral E to LV E' Lateral Ratio 8.6 LV E' Septal Velocity 8.4 cm/s Mitral E to LV E' Septal Ratio 11.0 TR Peak Velocity 204.5 cm/s TR Peak Gradient 16.7 mmHg FINDINGS Left Ventricle Normal left ventricular size, wall thickness, systolic function with no obvious regional wall motion abnormalities. The ejection fraction is visually estimated at 50-55%. Right Ventricle The right ventricle is moderately dilated.Mild systolic dysfunction. The estimated right ventricular systolic pressure, 32mmHg. RAP 15. Left Atrium The left atrium is normal by two-dimensional, color flow and Doppler imaging with no structural abnormalities, no thrombus formation present. Right Atrium The right atrium is severely dilated. Atrial Septum The interatrial septum appears normal with no evidence of a shunt. Aorta The aorta is normal by two-dimensional, color flow and Doppler interrogation. Mitral Valve The mitral valve is normal by two-dimensional, color flow and Doppler interrogation. There is no sig nificant mitral valve regurgitation. Aortic Valve The aortic valve is trileaflet and normal by two-dimensional, color flow and Doppler interrogation. There is trace aortic valve regurgitation. Tricuspid Valve The tricuspid valve is normal by two-dimensional, color flow and Doppler interrogation. There is mil d tricuspid valve regurgitation. Pulmonic Valve The pulmonic valve is not well visualized. There is no significant pulmonic valve regurgitation. Vessels The pulmonary artery appears normal. The inferior vena cava pulmonary and hepatic veins appear isaias l. Pericardium The pericardium is normal by two-dimensional imaging. There is no significant pericardial effusion. CONCLUSIONS Indication: Stroke Negative bubble study. TTE is suboptimal to rule out PFO or ASD. Consider AMNUELITO if high clincial suspi cion. Normal LV size and function. Cannot determine diastolic function due to AFib. Estimated EF 50-55% Moderate RV dilatation. Mild RV dysfunction. Estimated RVSP 32mmHg RA is severely dilated. Mild to moderate TR. Trace AI. Zachary Day (Electronically Signed) Final Date: 06 September 2024 17:47
[2024-09-05 13:57] LABS: Clarity,Urine Hazy (Clear/Hazy)
--- NOTE | 2024-09-05 13:58 | ESHP_ITS ---
Documentation for date of: 09/05/24 [facility] History of Present Illness Chief complaint: stroke History of present illness: 79 y/o M with PMHx of Hypertension, Diabetes, previous CVA (2020), urinary incontinence, hx of chronic UTIs presented to the ED after developing right lower and upper extremity weakness and slurred speech. Patient states he went to sleep around 8pm on 09/04/2024 and reports having chills at this time and bilateral blueish discoloration of the upper extremities. Later in the morning patient went to take a shower and was unable to move his right lower extremity to get out of the shower, followed by right upper extremity weakness and ambulance was called and brought to the ED. Patient has history of prior CVA but states he had no residual symptoms after undergoing PT and that these symptoms are new. At this time patient denies headache, fever, chills, shortness of breath, chest pain, orthopnea, PND, nausea, vomiting, abdominal pain. Patient will be admitted for stroke work up. ED course: vitals on arrival showed BP 101/67, HR 86, RR 20, Temp 98.5, saturating 94% on 2L NC, Labs show elevated WBCs 19.7, K 3.0, HCO3- 19.9, hypomagnesemia 1.2, low Ca 8.2, elevated alk phos 136, troponins negative, lactic acid 2.8, Tele neurology consulted NIHSS:4.Head CT showed Negative for acute hemorrhage, mass effect or midline shift, Bilateral basal ganglia and left brainstem infarcts as above, the 11 mm left, brainstem infarct may be acute, the appearance should be clinically correlated, Head/Neck CTA showed No significant neck arterial stenoses, No cerebral large vessel arterial occlusions, thrombus, dissection or cerebral aneurysm PMHx: HTN, HLD, DM, CVA, urinary incontinence, hx of chronic UTIs PSxHx: prostate surgery, ankle surgery Social Hx: denies alcohol, denies smoking, denies illicit drug use FHx: unknown Review of Systems Review of Systems Narrative Review of Systems: Narrative ROS GENERAL: Denies fevers, + chills HEENT: Denies headache or visual/hearing changes. Denies nasal discharge. NEURO: right sided weakness slurred speaking. CARDIO: Denies chest pain or palpitations. PULM: Denies SOB, coughing, or wheezing. GI: Denies abdominal pain, N/V/C/D/reflux/gas, bright red blood per rectum or melena. Reports having BMs. URO: Denies burning/itching/pain/urinary changes. MSK/EXT/SKIN: Denies joint/skeletal/muscle pain, issues/changes in upper or lower extremities, itchiness, or superficial pain. PSYCH: Cooperative, pleasant mood & affect. The rest of the review of systems is otherwise negative. Exam Vital Signs Temp Pulse Resp BP Pulse Ox O2 Del Method O2 Flow Rate 100.4 F 89 20 108/59 L 97 Nasal Cannula 3 09/05/24 13:04 09/05/24 13:04 09/05/24 13:04 09/05/24 13:04 09/05/24 13:04 09/05/24 13:04 09/05/24 13:04 Narrative Exam Physical Exam GENERAL: NAD, NC/AT, responsive/cooperative. A&Ox3 HEENT: Moist mucosa. Eyes open, symmetrical, & clear CARDIO: No chest pain on palpation. Heart RRR, no obvious murmurs PULM: No noted coughing/dyspnea. Lungs CTA B/L, no R/W/R GI: Abdomen soft, nondistended, no pain on palpation. BSx4 URO/ROUTE SERVICE REPRESENTATIVE:: No further abnormalities noted. SKIN/MSK/EXT: No wounds/rashes/edema/amputations, no pain on palpation. Pedal pulses present B/L NEURO: AAOx3, right sided upper and lower extremity weakness Results: Labs 09/06/24 04:30 09/06/24 04:30 Labs: Short CBC 09/05/24 Range/Units 11:20 WBC 19.7 H (3.8-10.6) Thou/mm3 Hgb 13.1 L (13.5-16.0) g/dL Hct 39.8 L (41.0-53.0) % Plt Count 165 (140-440) Thou/mm3 BMP 09/05/24 11:20 Sodium 144 Potassium 3.0 L Chloride 112 H Carbon Dioxide 19.9 L BUN 15 Creatinine 1.0 Glucose 81 Calcium 7.5 L Cardiac Enzymes 09/05/24 Range/Units 11:20 Troponin I < 0.020 (0.0-0.045) ng/mL Liver Function 09/05/24 Range/Units 11:20 Total Bilirubin 0.6 (0.3-1.2) mg/dL AST 51 H (0-34) U/L ALT 37 (10-49) U/L Alkaline Phosphatase 136 H (46-116) U/L Albumin 3.1 L (3.4-4.8) gm/dL Urine 09/05/24 Range/Units 13:12 Urine Color Yellow (Lt Yel-Yel) Urine Clarity Hazy (Clear/Hazy) Urine pH 5.5 (5.0-7.0) Ur Specific [place] 1.031 (1.001-1.035) Urine Protein 1+ A (Neg - Trace) Urine Glucose (UA) 4+ A (Negative) ABG Interpretation ABG results: 09/05/24 13:20 VBG pH 7.38 VBG pCO2 44 VBG pO2 32 VBG Base Excess 1 Quality Measures Quality Measures stroke Suspected type of Stroke: Non Acute Last known well (date): 09/04/24 Last known well (time): 20:00 Tenecteplase given: Reason(s) Tenecteplase not given: Outside the time window not given Rehab services: PT evaluation ordered VTE Prophylaxis: pharmaceutical Antithrombotic by day 2:: not indicated (describe) Statin ordered: >75 y/o moderate or high intensity dose Anticoagulation ordered for A-fib or flutter (current or hx): contraindicated Advance care planning discussed with:: patient Medications Home Medications and Allergies Home Medications ?Medication ?Instructions ?Recorded ?Confirmed ?Type carvedilol 3.125 mg tablet (Coreg) 6.25 mg PO BID 10/10/20 09/05/24 History metformin 1,000 mg tablet 1,000 mg PO BIDAC 10/10/20 09/05/24 History ferrous sulfate 325 mg (65 mg 325 mg PO QDAY 08/21/22 09/05/24 History iron) tablet atorvastatin 80 mg tablet 80 mg PO QDAY 09/05/24 09/05/24 History clopidogrel 75 mg tablet 75 mg PO QDAY 09/05/24 09/05/24 History rosuvastatin 40 mg tablet 40 mg PO QPM 09/05/24 09/05/24 History sacubitril 24 mg-valsartan 26 mg 1 tab PO BID 09/05/24 09/05/24 History tablet (Entresto) sitagliptin phosphate 100 mg 100 mg PO QDAY 09/05/24 09/05/24 History tablet (Januvia) Allergies Allergy/AdvReac Type Severity Reaction Status Date / Time onion Allergy Mild Numbness Verified 01/29/23 17:55 Visit Medications Acetaminophen (Acetaminophen 325 Mg Tablet) 650 mg PO Q6H PRN PRN Reason: Fever >101.5 Stop: 10/05/24 13:47 Acetaminophen (Acetaminophen 325 Mg Tablet) 650 mg PO Q6H PRN PRN Reason: PAIN SCALE 1-3 (mild Stop: 10/05/24 13:49 Dextrose (Dextrose 50%-Water Inj 50 Ml Syringe) 25 ml IV Q15MIN PRN PRN Reason: BG 50-70 responsive npo pt Stop: 10/05/24 13:52 Dextrose (Dextrose 50%-Water Inj 50 Ml Syringe) 50 ml IV Q15MIN PRN PRN Reason: BG <50 OR BG <70 & pt unresponsive Stop: 10/05/24 13:52 Docusate Sodium (Docusate Sod 100 Mg Capsule) 100 mg PO QDAY [facility]; Protocol Stop: 10/06/24 08:59 Enoxaparin Sodium (Enoxaparin Sod Inj 40 Mg/0.4 Ml Syringe) 40 mg SC QDAY GAUDENCIO Stop: 09/19/24 13:59 Glucagon (Glucagon Inj 1 Mg Vial) 1 mg IM Q15MIN PRN PRN Reason: BG <70, and no IV access Potassium Chloride (Kcl Ivpb) 10 meq in 100 mls @ 100 mls/hr IV Q1H GAUDENCIO Stop: 09/05/24 16:35 Last Admin: 09/05/24 13:12 Dose: 100 mls/hr Piperacillin Sod/Tazobactam (Sod 3.375 gm/ Sodium Chloride) 50 mls @ 100 mls/hr IV X1 ONE Stop: 09/05/24 14:23 Insulin Human Lispro (Insulin Lispro (Admelog) 1 Unit/0.01 Ml Unit) 0 unit SC ACHS [facility]; Protocol Stop: 10/05/24 16:59 Insulin Human Regular (Insulin Hum Regular 1 Unit/0.01 Ml (Per Unit)) 0 unit SC [facility]; Protocol Stop: 10/05/24 16:59 Labetalol HCl (Labetalol Inj 5 Mg/Ml Vial 20 Ml) 10 mg IVP Q6H PRN PRN Reason: BP 220/110 Stop: 10/05/24 13:59 Ondansetron HCl (Ondansetron Inj 2 Mg/Ml Inj 2 Ml) 4 mg IV Q4HR PRN PRN Reason: NAUSEA OR VOMITING Stop: 10/05/24 11:18 Ondansetron HCl (Ondansetron Inj 2 Mg/Ml Inj 2 Ml) 4 mg IV Q6H PRN; Protocol PRN Reason: NAUSEA OR VOMITING Stop: 10/05/24 13:47 Discontinued Medications Sodium Chloride (Ns) 1,000 mls @ 1,682 mls/hr IV .Q36M ONE Stop: 09/05/24 13:31 Last Admin: 09/05/24 13:06 Dose: 1,682 mls/hr Sodium Chloride (Ns) 2,259 mls @ 2,259 mls/hr 30 ml/kg infuse over 60 min (2259 ml) IV .Q1H ONE Stop: 09/05/24 13:55 Last Admin: 09/05/24 13:06 Dose: Not Given Assessment & Plan Plan 79 y/o M with PMHx of Hypertension, Diabetes, previous CVA (2020), urinary incontinence, hx of chronic UTIs presented to the ED after developing right lower and upper extremity weakness and slurred speech. Tele neurology consulted NIHSS:4, no tPA was given patient arrived >4.5 hours of presentation. Admitted for stroke work up. #Sepsis secondary to UTI #Lactic acidosis Patient presented with fever, lactic acidosis, with a UTI UA showed positive esterase, many WBCs and bacteria patient has hx of chronic UTIs Patient received 2.5L in the ED - on Ceftriaxone - blood cultures pending - urine culture pending - lactic acid [id number] #CVA-ruled out Patient went to take a shower and was unable to move his right lower extremity to get out of the shower, followed by right upper extremity weakness and ambulance was called and brought to the ED. Tele neurology consulted NIHSS:4.Head CT showed Negative for acute hemorrhage, mass effect or midline shift, Bilateral basal ganglia and left brainstem infarcts as above, the 11 mm left, brainstem infarct may be acute, the appearance should be clinically correlated, Head/Neck CTA showed No significant neck arterial stenoses, No cerebral large vessel arterial occlusions, thrombus, dissection or cerebral aneurysm MRI was done showed Negative for acute hemorrhage mass effect or midline shift, No acute infarct, No large vessel occlusions - Echo bubble study pending - Plavix 75mg q day - speech eval pending - PT eval pending - HOB>30 - high intensity statin - seizure precautions #Atrial fibrillation Patient denies any history of abnormal heart rhythm per chart review of previous EKGs rhythm shows atrial fibrillation currently rate controlled CHADVASC score: 7; 11.2% stroke risk Spoke neurology recommended keeping patient on plavix at this time as patient has risk of bleeding # hx of GI Bleed Pt reported hx of GI bleed in 2021, - IV Protonix - Stool occult ordered #Hx of HFrEF 40-45% #Hx of HTN #Hx of HLD - on atorvastatin 80mg - will resume BP meds when BP permits #Diabetes type II - ssi - hypoglycemia protocol in place Case discussed with my senior PGY-[address] Abram Narvaez MD PGY-1 Disposition: Telemetry Fluids: None Feeding: NPO, pending swallow eval Thrombo prophylaxis: Heparin Physical therapy: pending evaluation Gastric Ulcer prophylaxis: Pantoprazole CODE STATUS: DNR Senior resident attestation: Patient evaluated and examined at the bedside, plan of care discussed with rest of the team including my attending physician, except as noted. #Acute stroke - ruled out acute stroke on MRI , Spoke to dr Begum, Neurology recommend plavix, continue statin. pt had a negative echo bubble study in july. #Atrial fibrillation - CHADSVASC 7, no anticoagulation due to concern for gi bleed. plavix continued per neuro recs. #Hx of GI Bleed: started iv protonix, will order stool occult, continue close monitoring for GI bleed, repeat H&H ordered for later today. will GI consult, if evidence of GI bleed #Sepsis 2/2 UTI: IV antibiotics, q4 hr lactic acid , f/u cultures #CHF: EF 40-45% reported on echo in july. resume home medications. entresto and coreg. #Hx of DM; on insulin sliding scale. Nataly PGY2 Attending Provider Attestation/Addendum I have examined the patient, reviewed labs and imaging findings, discussed the case with the resident(s), and reviewed entered orders. I agree with the plan of care as outlined in this note, with these additional summaries/recommendations: Patient seen at bedside. Patient presented with symptoms of difficulty sitting and slurred speech. Stroke alert called. Patient has an extensive CVA history with acute CVAs in September 2020 and 2023. Teleneurology was consulted and recommends admission for MRI brain without contrast and continue Plavix. We will hold aspirin for now given prior bleeding risk and appreciate neurology recommendations. Start Statin. CT head on admission was negative for acute hemorrhage, mass effect or midline shift but did reveal bilateral basal ganglia and left brainstem infractions, 11 mm left brainstem infract which may be acute. CTA showed no LVO. Consult in-house neurology. Order TSH, lipid panel, A1c, and echocardiogram. Physical therapy and swallow evaluation. Electrolyte abnormalities present and replacement given. Patient also diagnosed with sepsis secondary to urinary tract infection. Lactic acid elevated to 2.8. Continue IV antibiotics and follow-up culture results when available. Repeat hematology and chemistry panel in AM. Resume home medications as tolerated. Dr. Valverde
[2024-09-05 14:14] LABS: Glucose Estimated Average 128 mg/dL (80-131); Hemoglobin A1C 6.1 % Hgb (4.8-6.0)
[2024-09-05] MEDS: ENOXAPARIN SOD INJ 40 MG/0.4 ML SYRINGE SC (14:57)
[2024-09-05] MEDS: CLOPIDOGREL BISULFATE 75 MG TABLET PO (14:57)
[2024-09-05] MEDS: PIPER/TAZO INJ 3.375 GM in SODIUM CHLORIDE 0.9% (P) 50 ML IV (15:07)
[2024-09-05 15:10] LABS: Procalcitonin 35.53 ng/ml (0.0-0.49)
[2024-09-05 16:28] LABS: Lactate (Lactic Acid) 2.5 mMol/L (0.4-2.0)
[2024-09-05] MEDS: PANTOPRAZOLE INJ 40 MG VIAL IV (16:30)
[2024-09-05] MEDS: cefTRIAXone/D5w 1gm IV premix 50 ML IV (16:30)
[2024-09-05 16:40] LABS: Reflex Lactate? Y
--- NOTE | 2024-09-05 16:47 | XR_ITS ---
Examination: AP chest single view Technique one AP portable upright chest single view Exam date and time: September 05, 2024 1703 hours INDICATIONS: Coughing congestion today. FINDINGS: Mild prominence of ventricle No lobar pneumonia or pulmonary edema Moderate osteopenia IMPRESSION: No lobar pneumonia or pulmonary edema
[2024-09-05] MEDS: Magnesium Sulfate 4 GM Ivpb 4 GM/50 ML BAG IV (18:10)
[2024-09-05 19:26] LABS: Reflex Lactate? Y
[2024-09-05 20:03] LABS: Lactate (Lactic Acid) 1.5 mMol/L (0.4-2.0)
[2024-09-05] MEDS: POTASSIUM CHLORIDE 20 mEq TABCR 40 MEQ PO (20:08)
[2024-09-05] MEDS: ATORVASTATIN CALCIUM 20 MG TABLET 80 MG PO (20:08)
[2024-09-05 21:36] LABS: Hematocrit 32.4 % (41.0-53.0); Hemoglobin 10.8 g/dL (13.5-16.0)
[2024-09-06] VITALS (11 sets, daily range): BP systolic 89–119; BP diastolic 48–93; PULSE 58–98; RESP 16–95; TEMP 35.8–36.3; O2SAT 95–97; BMI 27.3; BMI 13.0
[2024-09-06 06:01] LABS: Basophils # (Auto) 0.1 Thou/mm3 (0.0-0.2); Basophils % (Auto) 0 % (0-2.5); Eosinophils % (Auto) 0 % (0-10); Hematocrit 34.2 % (41.0-53.0); Hemoglobin 11.5 g/dL (13.5-16.0); Immature Granulocytes % (Auto) 1 % (0-0); Immature Granulocytes Auto 0.11 Thou/mm3 (0.00-0.00); Lymphocytes # (Auto) 1.2 Thou/mm3 (1.0-4.8); Lymphocytes % (Auto) 6 % (10-50); Mean Corpuscular HGB Conc 33.6 g/dl (31.0-37.0); Mean Corpuscular Hemoglobin 30.7 pg (25.0-35.0); Mean Corpuscular Volume 91 fL (80-100); Monocytes # (Auto) 1.1 Thou/mm3 (0.0-0.8); Monocytes % (Auto) 6 % (0-12); Neutrophils # (Auto) 16.7 Thou/mm3 (1.8-7.7); Neutrophils % (Auto) 87 % (37-80); Nucleated Red Blood Cell % 0 /100 WBC (0); Platelet Count 154 Thou/mm3 (140-440); RDW Standard Deviation 48.4 fL (35.1-43.9); Red Blood Count 3.74 Miln/mm3 (4.50-5.90); White Blood Count 19.2 Thou/mm3 (3.8-10.6)
[2024-09-06 06:36] LABS: Alanine Aminotransferase 35 U/L (10-49); Albumin, Serum 3.2 gm/dL (3.4-4.8); Albumin/Globulin Ratio 0.9 (1.2-2.2); Alkaline Phosphatase 126 U/L (46-116); Anion Gap 10 (7-16); Aspartate Amino Transferase 47 U/L (0-34); BUN/Creatinine Ratio 17 Ratio (12-20); Bilirubin,Total 0.6 mg/dL (0.3-1.2); Blood Urea Nitrogen 19 mg/dL (9-23); Calcium (Corrected) 9.6 mg/dL (8.5-10.1); Chloride 108 mMol/L (98-107); Creatinine (Component) 1.1 mg/dL (0.6-1.3); Globulin 3.6 gm/dL (2.3-3.5); Glucose 77 mg/dL (74-106); Magnesium 2.4 mg/dL (1.6-2.6); Osmolality,Calculated 288 (275-295); Phosphorous 3.8 mg/dL (2.4-5.1); Potassium 4.2 mMol/L (3.4-5.1); Sodium 144 mMol/L (136-145); Thyroid Stimulating Hormone 0.81 uIU/mL (0.55-4.78); Total Protein 6.8 gm/dL (5.7-8.2); eGFR > 60 See Note
[2024-09-06] MEDS: cefTRIAXone/D5w 1gm IV premix 50 ML IV (09:02)
[2024-09-06] MEDS: PANTOPRAZOLE INJ 40 MG VIAL IV (09:02)
[2024-09-06] MEDS: ENOXAPARIN SOD INJ 40 MG/0.4 ML SYRINGE SC (09:03)
[2024-09-06] MEDS: DOCUSATE SOD 100 MG CAPSULE PO (09:03)
[2024-09-06] MEDS: CLOPIDOGREL BISULFATE 75 MG TABLET PO (09:03)
[2024-09-06] MEDS: SACUBITRIL 24 MG/VALSARTAN 26 MG TABLET 1 TAB PO (09:04)
--- NOTE | 2024-09-06 09:33 | PD.RESPRO ---
Documentation for date of: 09/06/24 Subjective Subjective Interval history: Patient was examined bedside this morning. He was comfortably sleeping in bed. No acute overnight event Exam Vital Signs Temp Pulse Resp BP Pulse Ox O2 Del Method O2 Flow Rate 96.5 F L 58 L 22 H 92/58 L 97 Nasal Cannula 1 09/06/24 07:50 09/06/24 09:05 09/06/24 08:55 09/06/24 09:05 09/06/24 08:55 09/06/24 07:50 09/06/24 08:55 Narrative Exam GENERAL: Comfortable adult seen resting comfortably in hospital bed, no acute distress HEENT: Normocephalic, atraumatic. Pupils are equal and reactive. Oral mucosa is moist. NECK: Supple, nontender, no JVD CHEST: Symmetrical, atraumatic and with equal expansion ,Nontender on palpation CARDIOVASCULAR: Heart regular rhythm & rate. S1/S2. no murmur or gallop rub or extra beats. LUNGS: Clear to auscultation bilaterally with symmetrical chest rise. No laboring tachypnea or wheezing. No intercostal subcostal retraction. No rales and no rhonchi. ABDOMEN: Soft, flat, nontender to palpation, no guarding or rebound tenderness. Active and normal bowel sounds. EXTREMITIES:Moves all 4 extremities,No B/L LE edema. SKIN: Warm and dry, no jaundice or rashes noted. NEURO: Patient is AO x 3, Cranial nerves II through XII grossly intact. PSYCHIATRIC: Patient is in normal mood, cooperative, no SI or HI or hallucinations. Objective Labs 09/08/24 04:50 09/08/24 04:50 Labs: Laboratory Results - last 24 hr 09/05/24 09/05/24 09/05/24 11:20 11:44 13:12 WBC 19.7 H RBC 4.31 L Hgb 13.1 L Hct 39.8 L MCV 92 MCH 30.4 MCHC 32.9 RDW Std Deviation 48.1 H Plt Count 165 Neut % (Auto) 94 H Lymph % (Auto) 2 L [place] % (Auto) 2 Eos % (Auto) 0 Baso % (Auto) 0 Neut # (Auto) 18.6 H Lymph # (Auto) 0.4 L [place] # (Auto) 0.5 Eos # (Auto) 0.1 Baso # (Auto) 0.1 Immature Gran # (Auto) 0.09 H Absolute Nucleated RBC 0.00 Immature Gran % 1 H Neutrophils % (Manual) 65 Monocytes % (Manual) 2 Metamyelocytes % 1 H Nucleated RBC % 0 Band Neutrophils 32 H Lymphocytes (Manual) 0 L Toxic Vacuolation 1+ PT 13.5 H INR 1.3 APTT 26.1 VBG pH VBG pCO2 VBG pO2 VBG O2 Sat (Héctor) VBG Base Excess Sodium 144 Potassium 3.0 L Chloride 112 H Carbon Dioxide 19.9 L Anion Gap 12 BUN 15 Creatinine 1.0 Estim Creat Clear Calc 62.8 eGFR > 60 BUN/Creatinine Ratio [address] Glu mg/dL 128 Hemoglobin A1c 6.1 H Calculated Osmolality 286 Lactic Acid Calcium 7.5 L Corrected Calcium 8.2 L Phosphorus Magnesium 1.2 L Total Bilirubin 0.6 AST 51 H ALT 37 Alkaline Phosphatase 136 H Troponin I < 0.020 Total Protein 6.0 Albumin 3.1 L Globulin 2.9 Albumin/Globulin Ratio 1.1 L Procalcitonin TSH Ur Collection Type Clean Catch Urine Color Yellow Urine Clarity Hazy Urine pH 5.5 Ur Specific [place] 1.031 Urine Protein 1+ A Urine Glucose (UA) 4+ A Urine Ketones Negative Urine Blood 2+ A Urine Nitrite Negative Urine Bilirubin Negative Urine Urobilinogen (Auto) Negative Ur Leukocyte Esterase Positive Urine RBC 11 H Urine WBC 221 H Ur Squamous Epith Cells 4 Ur Transition Epith Cell 1 Urine Bacteria 3+ A Hyaline Casts < 1 Urine Opiates Screen Negative Urine Fentanyl Screen Negative Ur Barbiturates Screen Negative U Amphetamin/Meth Scrn Negative U Benzodiazepines Scrn Negative U Cocaine Metab Screen Negative U Marijuana (THC) Screen Negative HCG (Qual) Negative 09/05/24 09/05/24 09/05/24 13:20 16:15 19:40 WBC RBC Hgb Hct MCV MCH MCHC RDW Std Deviation Plt Count Neut % (Auto) Lymph % (Auto) [place] % (Auto) Eos % (Auto) Baso % (Auto) Neut # (Auto) Lymph # (Auto) [place] # (Auto) Eos # (Auto) Baso # (Auto) Immature Gran # (Auto) Absolute Nucleated RBC Immature Gran % Neutrophils % (Manual) Monocytes % (Manual) Metamyelocytes % Nucleated RBC % Band Neutrophils Lymphocytes (Manual) Toxic Vacuolation PT INR APTT VBG pH 7.38 VBG pCO2 44 VBG pO2 32 VBG O2 Sat (Héctor) 59 L VBG Base Excess 1 Sodium Potassium Chloride Carbon Dioxide Anion Gap BUN Creatinine Estim Creat Clear Calc eGFR BUN/Creatinine Ratio Glucose Estimated Ave Glu mg/dL Hemoglobin A1c Calculated Osmolality Lactic Acid 2.8 H 2.5 H 1.5 Calcium Corrected Calcium Phosphorus Magnesium Total Bilirubin AST ALT Alkaline Phosphatase Troponin I Total Protein Albumin Globulin Albumin/Globulin Ratio Procalcitonin 35.53 H TSH Ur Collection Type Urine Color Urine Clarity Urine pH Ur Specific [place] Urine Protein Urine Glucose (UA) Urine Ketones Urine Blood Urine Nitrite Urine Bilirubin Urine Urobilinogen (Auto) Ur Leukocyte Esterase Urine RBC Urine WBC Ur Squamous Epith Cells Ur Transition Epith Cell Urine Bacteria Hyaline Casts Urine Opiates Screen Urine Fentanyl Screen Ur Barbiturates Screen U Amphetamin/Meth Scrn U Benzodiazepines Scrn U Cocaine Metab Screen U Marijuana (THC) Screen HCG (Qual) 09/05/24 09/06/24 21:08 04:30 WBC 19.2 H RBC 3.74 L Hgb 10.8 L D 11.5 L Hct 32.4 L 34.2 L MCV 91 MCH 30.7 MCHC 33.6 RDW Std Deviation 48.4 H Plt Count 154 Neut % (Auto) 87 H Lymph % (Auto) 6 L [place] % (Auto) 6 Eos % (Auto) 0 Baso % (Auto) 0 Neut # (Auto) 16.7 H Lymph # (Auto) 1.2 [place] # (Auto) 1.1 H Eos # (Auto) 0.0 Baso # (Auto) 0.1 Immature Gran # (Auto) 0.11 H Absolute Nucleated RBC 0.00 Immature Gran % 1 H Neutrophils % (Manual) Monocytes % (Manual) Metamyelocytes % Nucleated RBC % 0 Band Neutrophils Lymphocytes (Manual) Toxic Vacuolation PT INR APTT VBG pH VBG pCO2 VBG pO2 VBG O2 Sat (Héctor) VBG Base Excess Sodium 144 Potassium 4.2 D Chloride 108 H Carbon Dioxide 26.0 Anion Gap 10 BUN 19 Creatinine 1.1 Estim Creat Clear Calc 57.0 L eGFR > 60 BUN/Creatinine Ratio [address] Glu mg/dL Hemoglobin A1c Calculated Osmolality 288 Lactic Acid Calcium 9.0 D Corrected Calcium 9.6 Phosphorus 3.8 Magnesium 2.4 Total Bilirubin 0.6 AST 47 H ALT 35 Alkaline Phosphatase 126 H Troponin I Total Protein 6.8 Albumin 3.2 L Globulin 3.6 H Albumin/Globulin Ratio 0.9 L Procalcitonin TSH 0.81 Ur Collection Type Urine Color Urine Clarity Urine pH Ur Specific [place] Urine Protein Urine Glucose (UA) Urine Ketones Urine Blood Urine Nitrite Urine Bilirubin Urine Urobilinogen (Auto) Ur Leukocyte Esterase Urine RBC Urine WBC Ur Squamous Epith Cells Ur Transition Epith Cell Urine Bacteria Hyaline Casts Urine Opiates Screen Urine Fentanyl Screen Ur Barbiturates Screen U Amphetamin/Meth Scrn U Benzodiazepines Scrn U Cocaine Metab Screen U Marijuana (THC) Screen HCG (Qual) ABG Interpretation ABG results: 09/05/24 13:20 VBG pH 7.38 VBG pCO2 44 VBG pO2 32 VBG Base Excess 1 Quality Measures Quality Measures stroke Suspected type of Stroke: Non Acute Last known well (date): 09/04/24 Last known well (time): 20:00 Tenecteplase given: Reason(s) Tenecteplase not given: Outside the time window not given Rehab services: PT evaluation ordered VTE Prophylaxis: pharmaceutical Antithrombotic by day 2:: not indicated (describe) Statin ordered: >75 y/o moderate or high intensity dose Anticoagulation ordered for A-fib or flutter (current or hx): not indicated Advance care planning discussed with:: patient Assessment & Plan Assessment Current Active Medications: Generic Name Dose Route Start Last Admin Trade Name Freq PRN Reason Stop Dose Admin Acetaminophen 650 mg 09/05/24 13:48 Acetaminophen 325 Mg Tablet PO 10/05/24 13:47 Q6H PRN Fever >101.5 Acetaminophen 650 mg 09/05/24 13:50 Acetaminophen 325 Mg Tablet PO 10/05/24 13:49 Q6H PRN PAIN SCALE 1-3 (mild Atorvastatin Calcium 80 mg 09/05/24 21:00 09/05/24 20:08 Atorvastatin Calcium 20 Mg Tablet PO 10/05/24 20:59 80 mg HS GAUDENCIO Administration Carvedilol 6.25 mg 09/05/24 21:00 09/06/24 09:05 Carvedilol 3.125 Mg Tablet PO 10/05/24 20:59 Not Given BID GAUDENCIO Clopidogrel Bisulfate 75 mg 09/06/24 08:00 09/06/24 09:03 Clopidogrel Bisulfate 75 Mg Tablet PO 10/06/24 07:59 75 mg QDAY GAUDENCIO Administration Dextrose 25 ml 09/05/24 13:53 Dextrose 50%-Water Inj 50 Ml Syringe IV 10/05/24 13:52 Q15MIN PRN BG 50-70 responsive npo pt Dextrose 50 ml 09/05/24 13:53 Dextrose 50%-Water Inj 50 Ml Syringe IV 10/05/24 13:52 Q15MIN PRN BG <50 OR BG <70 & pt unresponsive Docusate Sodium 100 mg 09/06/24 09:00 09/06/24 09:03 Docusate Sod 100 Mg Capsule PO 10/06/24 08:59 100 mg QDAY GAUDENCIO Administration Protocol Enoxaparin Sodium 40 mg 09/05/24 14:00 09/06/24 09:03 Enoxaparin Sod Inj 40 Mg/0.4 Ml Syringe SC 09/19/24 13:59 40 mg QDAY GAUDENCIO Administration Glucagon 1 mg 09/05/24 13:53 Glucagon Inj 1 Mg Vial IM Q15MIN PRN BG <70, and no IV access Ceftriaxone Sodium/Dextrose 50 mls @ 100 mls/hr 09/05/24 14:45 09/06/24 09:02 Rocephin/D5w 1gm Iv Premix IV 09/12/24 14:44 100 mls/hr QDAY GAUDENCIO Administration Insulin Human Lispro 0 unit 09/05/24 17:00 09/06/24 08:57 Insulin Lispro (Admelog) 1 Unit/0.01 Ml Unit SC 10/05/24 16:59 Not Given ACHS [facility] Protocol Labetalol HCl 10 mg 09/05/24 15:33 Labetalol Inj 5 Mg/Ml Vial 20 Ml IVP 10/05/24 13:59 Q6H PRN SBP>220 Ondansetron HCl 4 mg 09/05/24 13:48 Ondansetron Inj 2 Mg/Ml Inj 2 Ml IV 10/05/24 13:47 Q6H PRN NAUSEA OR VOMITING Protocol Pantoprazole Sodium 40 mg 09/05/24 16:15 09/06/24 09:02 Pantoprazole Inj 40 Mg Vial IV 10/05/24 16:14 40 mg QDAY GAUDENCIO Administration Sacubitril/Valsartan 1 tab 09/05/24 21:00 09/06/24 09:04 Sacubitril 24 Mg/Valsartan 26 Mg Tablet PO 10/05/24 20:59 1 tab BID GAUDENCIO Administration Plan 79 y/o M with PMH of HTN , Diabetes, previous CVA (2020), urinary incontinence, hx of chronic UTIs presented to the ED after developing right lower and upper extremity weakness and slurred speech. Tele neurology consulted NIHSS:4, no tPA was given patient arrived >4.5 hours of presentation. Admitted for stroke work up. #CVA-ruled out -came to ed with right lower and upper extremity weakness and slurred speech -Tele neurology consulted NIHSS:4. -Head CT showed Negative for acute hemorrhage, mass effect or midline shift, Bilateral basal ganglia and left brainstem infarcts as above, the 11 mm left, brainstem infarct may be acute, -Head/Neck CTA showed No significant neck arterial stenoses, No cerebral large vessel arterial occlusions, thrombus, dissection or cerebral aneurysm -MRI was done showed Negative for acute hemorrhage mass effect or midline shift, No acute infarct, No large vessel occlusions - Pending Echo bubble study - Plavix 75mg q day, aspirin hold because history of sever bleeding in past - speech eval , PT eval pending -Continue high intensity statin Discussed the patient with my attending Dr Kenia Lanza MD,PGY-3 Attending Provider Attestation/Addendum I personally have seen and examined the patient at the bedside and agree with resident findings, assessment and plan of care. Continue with the current management, waiting for transfer to [facility].
--- NOTE | 2024-09-06 09:40 | PC.SS ---
Update: Patient negative for stroke. PT evaluation is pending. Neurology recommendations are pending.
--- NOTE | 2024-09-06 10:27 | PD.RESPRO ---
Documentation for date of: 09/06/24 Subjective Subjective Interval history: Patient seen today at the bedside found awake, alert, orientedx3. No overnight events reported. States no active complaints at this time. Vitals signs significant for some soft blood pressure and a mild fever, likely due to septic process. Continues with some mild weakness on the right side, however has improved significantly since previous evaluation. MRI was done no acute stroke found. Spoke to Neurology, recommends keeping patient on plavix and no anticoagulation at this time. Urine cultures grew gram negative rods, at this time will continue current antibiotic therapy with ceftriaxone as it has appropiate coverage, will adjust based on sensitivity once it is available if needed. Exam Vital Signs Temp Pulse Resp BP Pulse Ox O2 Del Method O2 Flow Rate 96.5 F L 58 L 22 H 92/58 L 97 Nasal Cannula 1 09/06/24 07:50 09/06/24 09:05 09/06/24 08:55 09/06/24 09:05 09/06/24 08:55 09/06/24 07:50 09/06/24 08:55 Narrative Exam Physical Exam GENERAL: NAD, NC/AT, responsive/cooperative. AAOx3 HEENT: Moist mucosa. Eyes open, symmetrical, & clear CARDIO: No chest pain on palpation. Heart RRR, no obvious murmurs PULM: No noted coughing/dyspnea. Lungs CTA B/L, no R/W/R GI: Abdomen soft, nondistended, no pain on palpation. BSx4 URO/KNUCKLE STRAP SEWER:: No further abnormalities noted. SKIN/MSK/EXT: No wounds/rashes/edema/amputations, no pain on palpation. Pedal pulses present B/L NEURO: AAOx3, right sided upper and lower extremity weakness-improving Objective Labs 09/07/24 05:00 09/07/24 05:00 Labs: Laboratory Results - last 24 hr 09/05/24 09/05/24 09/05/24 11:20 11:44 13:12 WBC 19.7 H RBC 4.31 L Hgb 13.1 L Hct 39.8 L MCV 92 MCH 30.4 MCHC 32.9 RDW Std Deviation 48.1 H Plt Count 165 Neut % (Auto) 94 H Lymph % (Auto) 2 L Randall % (Auto) 2 Eos % (Auto) 0 Baso % (Auto) 0 Neut # (Auto) 18.6 H Lymph # (Auto) 0.4 L Randall # (Auto) 0.5 Eos # (Auto) 0.1 Baso # (Auto) 0.1 Immature Gran # (Auto) 0.09 H Absolute Nucleated RBC 0.00 Immature Gran % 1 H Neutrophils % (Manual) 65 Monocytes % (Manual) 2 Metamyelocytes % 1 H Nucleated RBC % 0 Band Neutrophils 32 H Lymphocytes (Manual) 0 L Toxic Vacuolation 1+ PT 13.5 H INR 1.3 APTT 26.1 VBG pH VBG pCO2 VBG pO2 VBG O2 Sat (Héctor) VBG Base Excess Sodium 144 Potassium 3.0 L Chloride 112 H Carbon Dioxide 19.9 L Anion Gap 12 BUN 15 Creatinine 1.0 Estim Creat Clear Calc 62.8 eGFR > 60 BUN/Creatinine Ratio [address] Glu mg/dL 128 Hemoglobin A1c 6.1 H Calculated Osmolality 286 Lactic Acid Calcium 7.5 L Corrected Calcium 8.2 L Phosphorus Magnesium 1.2 L Total Bilirubin 0.6 AST 51 H ALT 37 Alkaline Phosphatase 136 H Troponin I < 0.020 Total Protein 6.0 Albumin 3.1 L Globulin 2.9 Albumin/Globulin Ratio 1.1 L Procalcitonin TSH Ur Collection Type Clean Catch Urine Color Yellow Urine Clarity Hazy Urine pH 5.5 Ur Specific [place] 1.031 Urine Protein 1+ A Urine Glucose (UA) 4+ A Urine Ketones Negative Urine Blood 2+ A Urine Nitrite Negative Urine Bilirubin Negative Urine Urobilinogen (Auto) Negative Ur Leukocyte Esterase Positive Urine RBC 11 H Urine WBC 221 H Ur Squamous Epith Cells 4 Ur Transition Epith Cell 1 Urine Bacteria 3+ A Hyaline Casts < 1 Urine Opiates Screen Negative Urine Fentanyl Screen Negative Ur Barbiturates Screen Negative U Amphetamin/Meth Scrn Negative U Benzodiazepines Scrn Negative U Cocaine Metab Screen Negative U Marijuana (THC) Screen Negative HCG (Qual) Negative 09/05/24 09/05/24 09/05/24 13:20 16:15 19:40 WBC RBC Hgb Hct MCV MCH MCHC RDW Std Deviation Plt Count Neut % (Auto) Lymph % (Auto) Randall % (Auto) Eos % (Auto) Baso % (Auto) Neut # (Auto) Lymph # (Auto) Randall # (Auto) Eos # (Auto) Baso # (Auto) Immature Gran # (Auto) Absolute Nucleated RBC Immature Gran % Neutrophils % (Manual) Monocytes % (Manual) Metamyelocytes % Nucleated RBC % Band Neutrophils Lymphocytes (Manual) Toxic Vacuolation PT INR APTT VBG pH 7.38 VBG pCO2 44 VBG pO2 32 VBG O2 Sat (Héctor) 59 L VBG Base Excess 1 Sodium Potassium Chloride Carbon Dioxide Anion Gap BUN Creatinine Estim Creat Clear Calc eGFR BUN/Creatinine Ratio Glucose Estimated Ave Glu mg/dL Hemoglobin A1c Calculated Osmolality Lactic Acid 2.8 H 2.5 H 1.5 Calcium Corrected Calcium Phosphorus Magnesium Total Bilirubin AST ALT Alkaline Phosphatase Troponin I Total Protein Albumin Globulin Albumin/Globulin Ratio Procalcitonin 35.53 H TSH Ur Collection Type Urine Color Urine Clarity Urine pH Ur Specific Huntington Urine Protein Urine Glucose (UA) Urine Ketones Urine Blood Urine Nitrite Urine Bilirubin Urine Urobilinogen (Auto) Ur Leukocyte Esterase Urine RBC Urine WBC Ur Squamous Epith Cells Ur Transition Epith Cell Urine Bacteria Hyaline Casts Urine Opiates Screen Urine Fentanyl Screen Ur Barbiturates Screen U Amphetamin/Meth Scrn U Benzodiazepines Scrn U Cocaine Metab Screen U Marijuana (THC) Screen HCG (Qual) 09/05/24 09/06/24 21:08 04:30 WBC 19.2 H RBC 3.74 L Hgb 10.8 L D 11.5 L Hct 32.4 L 34.2 L MCV 91 MCH 30.7 MCHC 33.6 RDW Std Deviation 48.4 H Plt Count 154 Neut % (Auto) 87 H Lymph % (Auto) 6 L Randall % (Auto) 6 Eos % (Auto) 0 Baso % (Auto) 0 Neut # (Auto) 16.7 H Lymph # (Auto) 1.2 Randall # (Auto) 1.1 H Eos # (Auto) 0.0 Baso # (Auto) 0.1 Immature Gran # (Auto) 0.11 H Absolute Nucleated RBC 0.00 Immature Gran % 1 H Neutrophils % (Manual) Monocytes % (Manual) Metamyelocytes % Nucleated RBC % 0 Band Neutrophils Lymphocytes (Manual) Toxic Vacuolation PT INR APTT VBG pH VBG pCO2 VBG pO2 VBG O2 Sat (Héctor) VBG Base Excess Sodium 144 Potassium 4.2 D Chloride 108 H Carbon Dioxide 26.0 Anion Gap 10 BUN 19 Creatinine 1.1 Estim Creat Clear Calc 57.0 L eGFR > 60 BUN/Creatinine Ratio [address] Glu mg/dL Hemoglobin A1c Calculated Osmolality 288 Lactic Acid Calcium 9.0 D Corrected Calcium 9.6 Phosphorus 3.8 Magnesium 2.4 Total Bilirubin 0.6 AST 47 H ALT 35 Alkaline Phosphatase 126 H Troponin I Total Protein 6.8 Albumin 3.2 L Globulin 3.6 H Albumin/Globulin Ratio 0.9 L Procalcitonin TSH 0.81 Ur Collection Type Urine Color Urine Clarity Urine pH Ur Specific Huntington Urine Protein Urine Glucose (UA) Urine Ketones Urine Blood Urine Nitrite Urine Bilirubin Urine Urobilinogen (Auto) Ur Leukocyte Esterase Urine RBC Urine WBC Ur Squamous Epith Cells Ur Transition Epith Cell Urine Bacteria Hyaline Casts Urine Opiates Screen Urine Fentanyl Screen Ur Barbiturates Screen U Amphetamin/Meth Scrn U Benzodiazepines Scrn U Cocaine Metab Screen U Marijuana (THC) Screen HCG (Qual) ABG Interpretation ABG results: 09/05/24 13:20 VBG pH 7.38 VBG pCO2 44 VBG pO2 32 VBG Base Excess 1 Quality Measures Quality Measures stroke Suspected type of Stroke: Non Acute Last known well (date): 09/04/24 Last known well (time): 20:00 Tenecteplase given: Reason(s) Tenecteplase not given: Outside the time window not given Rehab services: PT evaluation ordered VTE Prophylaxis: pharmaceutical Antithrombotic by day 2:: not indicated (describe) Statin ordered: >75 y/o moderate or high intensity dose Anticoagulation ordered for A-fib or flutter (current or hx): contraindicated Advance care planning discussed with:: patient and sibling Assessment & Plan Assessment Current Active Medications: Generic Name Dose Route Start Last Admin Trade Name Freq PRN Reason Stop Dose Admin Acetaminophen 650 mg 09/05/24 13:48 Acetaminophen 325 Mg Tablet PO 10/05/24 13:47 Q6H PRN Fever >101.5 Acetaminophen 650 mg 09/05/24 13:50 Acetaminophen 325 Mg Tablet PO 10/05/24 13:49 Q6H PRN PAIN SCALE 1-3 (mild Atorvastatin Calcium 80 mg 09/05/24 21:00 09/05/24 20:08 Atorvastatin Calcium 20 Mg Tablet PO 10/05/24 20:59 80 mg HS GAUDENCIO Administration Carvedilol 6.25 mg 09/05/24 21:00 09/06/24 09:05 Carvedilol 3.125 Mg Tablet PO 10/05/24 20:59 Not Given BID GAUDENCIO Clopidogrel Bisulfate 75 mg 09/06/24 08:00 09/06/24 09:03 Clopidogrel Bisulfate 75 Mg Tablet PO 10/06/24 07:59 75 mg QDAY GAUDENCIO Administration Dextrose 25 ml 09/05/24 13:53 Dextrose 50%-Water Inj 50 Ml Syringe IV 10/05/24 13:52 Q15MIN PRN BG 50-70 responsive npo pt Dextrose 50 ml 09/05/24 13:53 Dextrose 50%-Water Inj 50 Ml Syringe IV 10/05/24 13:52 Q15MIN PRN BG <50 OR BG <70 & pt unresponsive Docusate Sodium 100 mg 09/06/24 09:00 09/06/24 09:03 Docusate Sod 100 Mg Capsule PO 10/06/24 08:59 100 mg QDAY GAUDENCIO Administration Protocol Enoxaparin Sodium 40 mg 09/05/24 14:00 09/06/24 09:03 Enoxaparin Sod Inj 40 Mg/0.4 Ml Syringe SC 09/19/24 13:59 40 mg QDAY GAUDENCIO Administration Glucagon 1 mg 09/05/24 13:53 Glucagon Inj 1 Mg Vial IM Q15MIN PRN BG <70, and no IV access Ceftriaxone Sodium/Dextrose 50 mls @ 100 mls/hr 09/05/24 14:45 09/06/24 09:02 Rocephin/D5w 1gm Iv Premix IV 09/12/24 14:44 100 mls/hr QDAY GAUDENCIO Administration Insulin Human Lispro 0 unit 09/05/24 17:00 09/06/24 08:57 Insulin Lispro (Admelog) 1 Unit/0.01 Ml Unit SC 10/05/24 16:59 Not Given ACHS GAUDENCIO Protocol Labetalol HCl 10 mg 09/05/24 15:33 Labetalol Inj 5 Mg/Ml Vial 20 Ml IVP 10/05/24 13:59 Q6H PRN SBP>220 Ondansetron HCl 4 mg 09/05/24 13:48 Ondansetron Inj 2 Mg/Ml Inj 2 Ml IV 10/05/24 13:47 Q6H PRN NAUSEA OR VOMITING Protocol Pantoprazole Sodium 40 mg 09/05/24 16:15 09/06/24 09:02 Pantoprazole Inj 40 Mg Vial IV 10/05/24 16:14 40 mg QDAY GAUDENCIO Administration Sacubitril/Valsartan 1 tab 09/05/24 21:00 09/06/24 09:04 Sacubitril 24 Mg/Valsartan 26 Mg Tablet PO 10/05/24 20:59 1 tab BID GAUDENCIO Administration Plan 79 y/o M with PMHx of Hypertension, Diabetes, previous CVA (2020), urinary incontinence, hx of chronic UTIs presented to the ED after developing right lower and upper extremity weakness and slurred speech. Tele neurology consulted NIHSS:4, no tPA was given patient arrived >4.5 hours of presentation. Admitted for stroke work up. #Sepsis secondary to UTI #Lactic acidosis-resolved Patient presented with fever, lactic acidosis, with a UTI UA showed positive esterase, many WBCs and bacteria patient has hx of chronic UTIs Patient received 2.5L in the ED lactic acidosis normalized, blood cultures negative 24 hours Urine culture grew gram negative crystal - on Ceftriaxone - Will adjust based on culture and sensitivity #CVA-ruled out Patient went to take a shower and was unable to move his right lower extremity to get out of the shower, followed by right upper extremity weakness and ambulance was called and brought to the ED. Tele neurology consulted NIHSS:4.Head CT showed Negative for acute hemorrhage, mass effect or midline shift, Bilateral basal ganglia and left brainstem infarcts as above, the 11 mm left, brainstem infarct may be acute, the appearance should be clinically correlated, Head/Neck CTA showed No significant neck arterial stenoses, No cerebral large vessel arterial occlusions, thrombus, dissection or cerebral aneurysm MRI was done showed Negative for acute hemorrhage mass effect or midline shift, No acute infarct, No large vessel occlusions PT recommends SNF placement Speech evaluated the patient placed on carb consistent Neurology recommends continuing plavix at this time, no anticoagulation as patient has risk of bleeding - Echo bubble study pending - Plavix 75mg q day - HOB>30 - high intensity statin - seizure precautions #Atrial fibrillation Patient denies any history of abnormal heart rhythm per chart review of previous EKGs rhythm shows atrial fibrillation currently rate controlled CHADVASC score: 7; 11.2% stroke risk Spoke neurology recommended keeping patient on plavix at this time as patient has risk of bleeding # hx of GI Bleed Pt reported hx of GI bleed in 2021, - IV Protonix - Stool occult ordered #Hx of HFrEF 40-45% #Hx of HTN #Hx of HLD - on atorvastatin 80mg - will resume BP meds when BP permits #Diabetes type II - ssi - hypoglycemia protocol in place Case discussed with my senior PGY-[address] Arbam Narvaez MD PGY-1 Disposition: Telemetry Fluids: None Feeding: Carb consistent Thrombo prophylaxis: Heparin Physical therapy: pending evaluation Gastric Ulcer prophylaxis: Pantoprazole CODE STATUS: DNR Senior resident attestation: Patient evaluated and examined at the bedside, plan of care discussed with rest of the team including my attending physician, except as noted. #Acute stroke - ruled out acute stroke on MRI , Spoke to dr Begum, Neurology recommend plavix, continue statin. pt had a negative echo bubble study in july. #Atrial fibrillation - CHADSVASC 7, no anticoagulation due to concern for gi bleed. plavix continued per neuro recs. #Hx of GI Bleed: started iv protonix, will order stool occult, continue close monitoring for GI bleed, repeat H&H ordered for later today. will GI consult, if evidence of GI bleed #Sepsis 2/2 UTI: IV antibiotics, q4 hr lactic acid , f/u cultures #CHF: EF 40-45% reported on echo in july. resume home medications. entresto and coreg. #Hx of DM; on insulin sliding scale. Nataly PGY2 Attending Provider Attestation/Addendum I have examined the patient, reviewed labs and imaging findings, discussed the case with the resident(s), and reviewed entered orders. I agree with the plan of care as outlined in this note, with these additional summaries/recommendations: Patient seen at bedside. No acute overnight events. Patient has no acute complaints today although does have labile mood secondary to previous CVAs. Brain MRI negative for acute hemorrhage, no acute infarct, and no LVO. Most likely patient's symptoms are related to urinary tract infection. Urine culture preliminarily showing gram-negative rods and blood cultures with no growth at 24 hours. Continue IV Rocephin. Significant leukocytosis still present and awaiting final culture results. Lactic acidosis resolved. Continue home Plavix for history of multiple CVAs. Appears patient does have underlying atrial fibrillation which is currently rate controlled without medications. Not a candidate to for NOAC or aspirin given patient's prior bleeding. Repeat chemistry and hematology panel in AM. Dr. Valverde
--- NOTE | 2024-09-06 11:25 | PC.SS ---
TRANSFER CAR OPERATOR DRIER conducted bedside contact with the patient to confirm discharge plan. Patient stated desire to transition to SNF upon discharge. Preferred SNF is [facility]. Patient confirmed medical surrogate decision maker is sister, Renata Carlos .
--- NOTE | 2024-09-06 11:43 | PC.SS ---
Patient reports previously discharged from [facility] to home on 08-23-24.
--- NOTE | 2024-09-06 11:44 | PC.SS ---
PASSR completed. Patient meets Level 1 criteria. No follow up required.
[2024-09-06 14:47] LABS: Cardiac Risk Estimate 2.6 RATIO (4.0-6.7); Cholesterol 66 mg/dL (132-200); HDL Cholesterol 25 mg/dL (40-60); LDL Cholesterol,Calculated 22 mg/dL (0-130); Triglycerides 94 mg/dL (30-150)
--- NOTE | 2024-09-06 15:59 | PC.SS ---
Rounding Note: Stroke R/O. Patient septic, receiving IV antibiotics.
--- NOTE | 2024-09-06 16:00 | PC.SS ---
SNF referral submitted on [facility] platform. Results are pending.
[2024-09-06] MEDS: carVEDILOL 3.125 MG TABLET 6.25 MG PO (20:17)
[2024-09-06] MEDS: ATORVASTATIN CALCIUM 20 MG TABLET 80 MG PO (20:17)
[2024-09-06] MEDS: INSULIN LISPRO (AdmeLOG) 1 UNIT/0.01 ML UNIT SC (20:24)
[2024-09-07] VITALS (10 sets, daily range): BP systolic 100–135; BP diastolic 61–92; PULSE 61–82; RESP 15–97; TEMP 36.1–36.3; O2SAT 96–98; BMI 27.3
[2024-09-07 05:50] LABS: Basophils % (Auto) 0 % (0-2.5); Eosinophils # (Auto) 0.1 Thou/mm3 (0.0-0.5); Eosinophils % (Auto) 1 % (0-10); Hematocrit 33.6 % (41.0-53.0); Hemoglobin 11.1 g/dL (13.5-16.0); Immature Granulocytes % (Auto) 0 % (0-0); Immature Granulocytes Auto 0.04 Thou/mm3 (0.00-0.00); Lymphocytes # (Auto) 1.3 Thou/mm3 (1.0-4.8); Lymphocytes % (Auto) 13 % (10-50); Mean Corpuscular Hemoglobin 30.2 pg (25.0-35.0); Mean Corpuscular Volume 91 fL (80-100); Monocytes # (Auto) 0.7 Thou/mm3 (0.0-0.8); Monocytes % (Auto) 7 % (0-12); Neutrophils # (Auto) 7.6 Thou/mm3 (1.8-7.7); Neutrophils % (Auto) 78 % (37-80); Nucleated Red Blood Cell % 0 /100 WBC (0); Platelet Count 156 Thou/mm3 (140-440); RDW Standard Deviation 48.5 fL (35.1-43.9); Red Blood Count 3.68 Miln/mm3 (4.50-5.90); White Blood Count 9.8 Thou/mm3 (3.8-10.6)
[2024-09-07 06:17] LABS: Alanine Aminotransferase 34 U/L (10-49); Albumin, Serum 3.2 gm/dL (3.4-4.8); Alkaline Phosphatase 127 U/L (46-116); Anion Gap 6 (7-16); Aspartate Amino Transferase 49 U/L (0-34); BUN/Creatinine Ratio 21 Ratio (12-20); Bilirubin,Total 0.5 mg/dL (0.3-1.2); Blood Urea Nitrogen 19 mg/dL (9-23); Calcium 8.4 mg/dL (8.3-10.6); Carbon Dioxide 27.2 mMol/L (20.0-31.0); Chloride 104 mMol/L (98-107); Creatinine (Component) 0.9 mg/dL (0.6-1.3); Estimated Creatinine Clearance 69.7 mL/min (>60); Globulin 3.3 gm/dL (2.3-3.5); Glucose 102 mg/dL (74-106); Magnesium 2.1 mg/dL (1.6-2.6); Osmolality,Calculated 276 (275-295); Phosphorous 2.5 mg/dL (2.4-5.1); Potassium 3.5 mMol/L (3.4-5.1); Sodium 137 mMol/L (136-145); Total Protein 6.5 gm/dL (5.7-8.2); eGFR > 60 See Note
[2024-09-07] MEDS: cefTRIAXone/D5w 1gm IV premix 50 ML IV (08:39)
[2024-09-07] MEDS: CLOPIDOGREL BISULFATE 75 MG TABLET PO (08:39)
[2024-09-07] MEDS: DOCUSATE SOD 100 MG CAPSULE PO (08:39)
[2024-09-07] MEDS: POTASSIUM CHLORIDE 20 mEq TABCR 40 MEQ PO (08:39)
[2024-09-07] MEDS: carVEDILOL 3.125 MG TABLET 6.25 MG PO ×2 (08:40→20:56)
[2024-09-07] MEDS: PANTOPRAZOLE INJ 40 MG VIAL IV (08:40)
--- NOTE | 2024-09-07 08:46 | PC.SS ---
Update: Plan is to d/c patient to SNF once 3rd midnight has been achieved (09-08-24).
[2024-09-07] MEDS: ENOXAPARIN SOD INJ 40 MG/0.4 ML SYRINGE SC (09:23)
--- NOTE | 2024-09-07 09:33 | PD.RESPRO ---
Documentation for date of: 09/07/24 Subjective Subjective Interval history: No overnight events, patient back to baseline, safe and stable for discharge on Plavix only follow up outpatient in 1 month Exam Vital Signs Temp Pulse Resp BP Pulse Ox O2 Del Method O2 Flow Rate 97.1 F 82 16 135/77 H 97 Room Air 0 09/07/24 04:00 09/07/24 08:40 09/07/24 04:00 09/07/24 08:40 09/07/24 04:00 09/07/24 04:00 09/06/24 16:00 Narrative Exam GENERAL: NAD, NC/AT, responsive/cooperative. AAOx3 HEENT: Moist mucosa. Eyes open, symmetrical, & clear CARDIO: No chest pain on palpation. Heart RRR, no obvious murmurs PULM: No noted coughing/dyspnea. Lungs CTA B/L, no R/W/R GI: Abdomen soft, nondistended, no pain on palpation. BSx4 URO/APPLICATIONS ENGINEERING MANAGER:: No further abnormalities noted. SKIN/MSK/EXT: No wounds/rashes/edema/amputations, no pain on palpation. Pedal pulses present B/L NEURO: AAOx3, right sided upper and lower extremity weakness-improving Objective Labs 09/08/24 04:50 09/08/24 04:50 Labs: Laboratory Results - last 24 hr 09/06/24 09/07/24 04:30 05:00 WBC 9.8 D RBC 3.68 L Hgb 11.1 L Hct 33.6 L MCV 91 MCH 30.2 MCHC 33.0 RDW Std Deviation 48.5 H Plt Count 156 Neut % (Auto) 78 Lymph % (Auto) 13 Sherman % (Auto) 7 Eos % (Auto) 1 Baso % (Auto) 0 Neut # (Auto) 7.6 Lymph # (Auto) 1.3 Sherman # (Auto) 0.7 Eos # (Auto) 0.1 Baso # (Auto) 0.0 Immature Gran # (Auto) 0.04 H Absolute Nucleated RBC 0.00 Immature Gran % 0 Nucleated RBC % 0 Sodium 137 Potassium 3.5 D Chloride 104 Carbon Dioxide 27.2 Anion Gap 6 L BUN 19 Creatinine 0.9 Estim Creat Clear Calc 69.7 eGFR > 60 BUN/Creatinine Ratio 21 H Glucose 102 Calculated Osmolality 276 Calcium 8.4 Corrected Calcium 9.0 Phosphorus 2.5 Magnesium 2.1 Total Bilirubin 0.5 AST 49 H ALT 34 Alkaline Phosphatase 127 H Total Protein 6.5 Albumin 3.2 L Globulin 3.3 Albumin/Globulin Ratio 1.0 L Triglycerides 94 Cholesterol 66 L LDL Cholesterol, Calc 22 HDL Cholesterol 25 L Cholesterol/HDL Ratio 2.6 L ABG Interpretation ABG results: 09/05/24 13:20 VBG pH 7.38 VBG pCO2 44 VBG pO2 32 VBG Base Excess 1 Quality Measures Quality Measures stroke Suspected type of Stroke: Non Acute Last known well (date): 09/04/24 Last known well (time): 20:00 Tenecteplase given: Reason(s) Tenecteplase not given: Outside the time window not given Rehab services: PT evaluation ordered and Speech Language Pathology eval ordered VTE Prophylaxis: pharmaceutical Antithrombotic by day 2:: not indicated (describe) Statin ordered: >75 y/o moderate or high intensity dose Anticoagulation ordered for A-fib or flutter (current or hx): not indicated Advance care planning discussed with:: patient Assessment & Plan Assessment Current Active Medications: Generic Name Dose Route Start Last Admin Trade Name Freq PRN Reason Stop Dose Admin Acetaminophen 650 mg 09/05/24 13:48 Acetaminophen 325 Mg Tablet PO 10/05/24 13:47 Q6H PRN Fever >101.5 Acetaminophen 650 mg 09/05/24 13:50 Acetaminophen 325 Mg Tablet PO 10/05/24 13:49 Q6H PRN PAIN SCALE 1-3 (mild Atorvastatin Calcium 80 mg 09/05/24 21:00 09/06/24 20:17 Atorvastatin Calcium 20 Mg Tablet PO 10/05/24 20:59 80 mg HS GAUDENCIO Administration Carvedilol 6.25 mg 09/05/24 21:00 09/07/24 08:40 Carvedilol 3.125 Mg Tablet PO 10/05/24 20:59 6.25 mg BID GAUDENCIO Administration Clopidogrel Bisulfate 75 mg 09/06/24 08:00 09/07/24 08:39 Clopidogrel Bisulfate 75 Mg Tablet PO 10/06/24 07:59 75 mg QDAY GAUDENCIO Administration Dextrose 25 ml 09/05/24 13:53 Dextrose 50%-Water Inj 50 Ml Syringe IV 10/05/24 13:52 Q15MIN PRN BG 50-70 responsive npo pt Dextrose 50 ml 09/05/24 13:53 Dextrose 50%-Water Inj 50 Ml Syringe IV 10/05/24 13:52 Q15MIN PRN BG <50 OR BG <70 & pt unresponsive Docusate Sodium 100 mg 09/06/24 09:00 09/07/24 08:39 Docusate Sod 100 Mg Capsule PO 10/06/24 08:59 100 mg QDAY GAUDENCIO Administration Protocol Enoxaparin Sodium 40 mg 09/05/24 14:00 09/07/24 09:23 Enoxaparin Sod Inj 40 Mg/0.4 Ml Syringe SC 09/19/24 13:59 40 mg QDAY GAUDENCIO Administration Glucagon 1 mg 09/05/24 13:53 Glucagon Inj 1 Mg Vial IM Q15MIN PRN BG <70, and no IV access Ceftriaxone Sodium/Dextrose 50 mls @ 100 mls/hr 09/05/24 14:45 09/07/24 08:39 Rocephin/D5w 1gm Iv Premix IV 09/12/24 14:44 100 mls/hr QDAY GAUDENCIO Administration Insulin Human Lispro 0 unit 09/05/24 17:00 09/07/24 08:21 Insulin Lispro (Admelog) 1 Unit/0.01 Ml Unit SC 10/05/24 16:59 Not Given ACHS GAUDENCIO Protocol Labetalol HCl 10 mg 09/05/24 15:33 Labetalol Inj 5 Mg/Ml Vial 20 Ml IVP 10/05/24 13:59 Q6H PRN SBP>220 Ondansetron HCl 4 mg 09/05/24 13:48 Ondansetron Inj 2 Mg/Ml Inj 2 Ml IV 10/05/24 13:47 Q6H PRN NAUSEA OR VOMITING Protocol Pantoprazole Sodium 40 mg 09/05/24 16:15 09/07/24 08:40 Pantoprazole Inj 40 Mg Vial IV 10/05/24 16:14 40 mg QDAY GAUDENCIO Administration Sacubitril/Valsartan 1 tab 09/05/24 21:00 09/06/24 09:04 Sacubitril 24 Mg/Valsartan 26 Mg Tablet PO 10/05/24 20:59 1 tab BID GAUDENCIO Administration Plan 79 y/o M with PMH of HTN , Diabetes, previous CVA (2020), urinary incontinence, hx of chronic UTIs presented to the ED after developing right lower and upper extremity weakness and slurred speech. Tele neurology consulted NIHSS:4, no tPA was given patient arrived >4.5 hours of presentation. Admitted for stroke work up. #TIA -Presented with right lower and upper extremity weakness and slurred speech -Tele neurology consulted NIHSS:4. -Head CT showed Negative for acute hemorrhage, mass effect or midline shift, Bilateral basal ganglia and left brainstem infarcts as above, the 11 mm left, brainstem infarct may be acute, -Head/Neck CTA showed No significant neck arterial stenoses, No cerebral large vessel arterial occlusions, thrombus, dissection or cerebral aneurysm -MRI was done showed Negative for acute hemorrhage mass effect or midline shift, No acute infarct, No large vessel occlusions -Echo bubble study negative -Plavix 75mg q day, aspirin hold because history of severe bleeding in past -Continue high intensity statin -Ok to DC from neurology stand point, follow up in month outpatient Discussed the patient with my attending Dr Kenia Lyn MD,PGY-3 Attending Provider Attestation/Addendum I personally have seen and examined the patient at the bedside and agree with resident findings, assessment and plan of care. Patient's deficit is improving slowly. Reassurance given to the patient regarding the negative MRI brain for acute stroke. Encouraged him to continue with the physical therapy sessions as he got accepted to [facility], waiting for a bed. Continue with the Plavix alone as he has history of GI bleeding in the past.
--- NOTE | 2024-09-07 13:07 | ESDS_ITS ---
Planned Discharge Date 09/07/24 DS: Providers Provider Date of admission: 09/05/24 14:03 Primary care physician: Sanjay Paul MD Admitting Provider: Maxi Valverde MD Attending Provider on Admission: Maxi Valverde MD Consults: 09/05/24 11:19 Consult to Neurology / Tele-Neurology Routine Comment: Consulting Provider: [facility] 09/05/24 13:53 PT [Referral Physical Therapy] Stat Comment: Physician Instructions: Referral Speech Therapy Stat Comment: 09/05/24 15:30 Consult to Neurology / Tele-Neurology Stat Comment: Consulting Provider: Adam Aquino Attending Provider on DC: Maxi Valverde MD Discharging Provider: Maxi Valverde MD DS: Diagnosis Problem List Completed Was Problem List Reviewed/Reconciled?: Yes Hospital Course Hospital Course Hospital course: 79 y/o M with PMHx of Hypertension, Diabetes, previous CVA (2020), urinary incontinence, hx of chronic UTIs presented to the ED after developing right lower and upper extremity weakness and slurred speech. Patient states he went to sleep around 8pm on 09/04/2024 and reports having chills at this time and bilateral blueish discoloration of the upper extremities. Later in the morning patient went to take a shower and was unable to move his right lower extremity to get out of the shower, followed by right upper extremity weakness and ambulance was called and brought to the ED. Patient has history of prior CVA but states he had no residual symptoms after undergoing PT and that these symptoms are new. In the ED vitals on arrival showed BP 101/67, HR 86, RR 20, Temp 98.5, saturating 94% on 2L NC, Labs show elevated WBCs 19.7, K 3.0, HCO3- 19.9, hypomagnesemia 1.2, low Ca 8.2, elevated alk phos 136, troponins negative, lactic acid 2.8, Tele neurology consulted NIHSS:4.Head CT showed Negative for acute hemorrhage, mass effect or midline shift, Bilateral basal ganglia and left brainstem infarcts as above, the 11 mm left, brainstem infarct may be acute, the appearance should be clinically correlated, Head/Neck CTA showed No significant neck arterial stenoses, No cerebral large vessel arterial occlusions, thrombus, dissection or cerebral aneurysm. MRI was done showed Negative for acute hemorrhage mass effect or midline shift, No acute infarct, No large vessel occlusions. Echo bubble study negative. Dr. Aquino, neurology was consulted and recommended Plavix 75mg q day, aspirin hold because history of severe bleeding in past. Continue high intensity statin. Patient also had a positive UA and blood culture that was pansensitive. Patient was given antibiotics while inpatient and will be discharged with cefpodoxime x 7 days. Patient is stable and will discharge to SNF per physical therapy recommendations #Sepsis secondary to UTI #Lactic acidosis-resolved #CVA-ruled out #Atrial fibrillation # hx of GI Bleed #Hx of HFrEF 40-45% #Hx of HTN #Hx of HLD #Diabetes type II The patient's plan was discussed with attending Dr. Valverde and senior resident Dr. Nataly Haley, DO PGY1 Internal Medicine Senior resident attestation: Patient evaluated and examined at the bedside, plan of care discussed with rest of the team including my attending physician, except as noted. Continue antibiotic for 7 more days, for urinary tract infection. Recommend discontinuing Jardiance due to concern for repeated urine tract infections. And discontinue rosuvastatin as you are being discharged with atorvastatin 80 mg. Follow up with Neurologist Dr Aquino within in 2 weeks of discharge, you may need to call her office to schedule an appointment. Follow up with Primary care physician with labs within 3-5 days of discharge. If symptoms persist or worsen, return to the Emergency Department. Nataly PGY2 Time Spent with Patient Time attestation: Total time spent providing and/or coordinating discharge services: Time spent: Greater than 30 minutes Quality: Stroke Pt Provided Written Stroke Discharge Instructions: Yes Exam Vital Signs Temp Pulse Resp BP Pulse Ox O2 Del Method O2 Flow Rate 97.3 F 77 15 117/82 97 Room Air 0 09/07/24 12:09/07/24 12:09/07/24 12:09/07/24 12:00 09/07/24 12:00 09/07/24 12:09/07/24 12:00 Narrative Exam GENERAL: NAD, NC/AT, responsive/cooperative. AAOx3 HEENT: Moist mucosa. Eyes open, symmetrical, & clear CARDIO: No chest pain on palpation. Heart RRR, no obvious murmurs PULM: No noted coughing/dyspnea. Lungs CTA B/L, no R/W/R GI: Abdomen soft, nondistended, no pain on palpation. BSx4 URO/STEEL BURNER:: No further abnormalities noted. SKIN/MSK/EXT: No wounds/rashes/edema/amputations, no pain on palpation. Pedal pulses present B/L NEURO: AAOx3, right sided upper and lower extremity weakness-improving Discharge Plan Plan Patient Disposition: Xfer Skilled Nsg Fac (SNF) Disposition Comment: Hospitalist admit Dr Aquino consult Patient condition on transfer: Benefits outweigh risks Care Plan Goals: Continue antibiotic for 7 more days, for urinary tract infection. Recommend discontinuing Jardiance due to concern for repeated urine tract infections. And discontinue rosuvastatin as you are being discharged with atorvastatin 80 mg. Follow up with Neurologist Dr Aquino within in 2 weeks of discharge, you may need to call her office to schedule an appointment. Follow up with Primary care physician with labs within 3-5 days of discharge. If symptoms persist or worsen, return to the Emergency Department. Prescriptions/Referrals Prescriptions/Med Rec: New cefpodoxime 200 mg tablet 200 mg PO BID Qty: 14 0RF Rx Instructions: must administer with a meal/food Continued carvedilol [Coreg] 3.125 mg Tablet 6.25 mg PO BID metformin 1,000 mg tablet 1,000 mg PO BIDAC Hold Instructions: Resume on 12/23/21. Held due to Kidney injury. Please follow up with PCP for re-initiation to resume. ferrous sulfate 325 mg (65 mg iron) Tablet 325 mg PO QDAY Hold Instructions: Resume on 07/31/24. Follow up with PCP atorvastatin 80 mg Tablet 80 mg PO QDAY clopidogrel 75 mg Tablet 75 mg PO QDAY Januvia 100 mg Tablet 100 mg PO QDAY sacubitril-valsartan [Entresto] 24-26 mg Tablet 1 tab PO BID Discontinued Jardiance 10 mg tablet 10 mg PO QDAY Qty: 30 0RF rosuvastatin 40 mg Tablet 40 mg PO QPM Referrals: Sanjay Paul MD [Primary Care Provider] - Patient/Caregiver Discharge Instructions Education Materials: Anatomy of the Male Urinary Tract, Urinary Tract Infections in Men, Acute Kidney Failure Dc, Discharge Instructions for Stroke Print Language: Citizen Of [place] Stand Alone Forms: Mari Award Info., Patient Portal Info Letter Discharge Order Discharge Orders: Discharge (Routine); Ordered 09/07/24 Ordered By: Gracie Edwards Quality Discharge Quality Measures VTE prophylaxis MD Attestestation MD Attestation I have examined the patient, reviewed labs and imaging findings, discussed the case with the resident(s), and reviewed entered orders. I agree with the plan of care as outlined in this note. Dr. Valverde
--- NOTE | 2024-09-07 14:40 | PC.SS ---
Rounding Note: Plan is to d/c patient tomorrow.
--- NOTE | 2024-09-07 14:41 | PC.SS ---
Addendum entered and electronically signed by ANGIE Pal 09/07/24 14:45: Entry error. Original Note: ANIMAL TRAINER confirmed that patient's oxygen has been delivered.
--- NOTE | 2024-09-07 14:42 | PC.SS ---
Rounding Note: Plan is to d/c patient home today.
[2024-09-07] MEDS: ATORVASTATIN CALCIUM 20 MG TABLET 80 MG PO (20:56)
[2024-09-07] MEDS: INSULIN LISPRO (AdmeLOG) 1 UNIT/0.01 ML UNIT SC (21:25)
[2024-09-08] VITALS (8 sets, daily range): BP systolic 101–139; BP diastolic 65–88; PULSE 57–66; RESP 16–94; TEMP 36–36.6; O2SAT 95–97
[2024-09-08 05:29] LABS: Basophils # (Auto) 0.1 Thou/mm3 (0.0-0.2); Basophils % (Auto) 1 % (0-2.5); Eosinophils # (Auto) 0.2 Thou/mm3 (0.0-0.5); Eosinophils % (Auto) 3 % (0-10); Hematocrit 35.6 % (41.0-53.0); Hemoglobin 11.9 g/dL (13.5-16.0); Immature Granulocytes % (Auto) 0 % (0-0); Immature Granulocytes Auto 0.01 Thou/mm3 (0.00-0.00); Lymphocytes # (Auto) 1.2 Thou/mm3 (1.0-4.8); Lymphocytes % (Auto) 18 % (10-50); Mean Corpuscular HGB Conc 33.4 g/dl (31.0-37.0); Mean Corpuscular Hemoglobin 29.7 pg (25.0-35.0); Mean Corpuscular Volume 89 fL (80-100); Monocytes # (Auto) 0.5 Thou/mm3 (0.0-0.8); Monocytes % (Auto) 8 % (0-12); Neutrophils # (Auto) 4.5 Thou/mm3 (1.8-7.7); Neutrophils % (Auto) 70 % (37-80); Nucleated Red Blood Cell % 0 /100 WBC (0); Platelet Count 178 Thou/mm3 (140-440); RDW Standard Deviation 45.7 fL (35.1-43.9); Red Blood Count 4.01 Miln/mm3 (4.50-5.90); White Blood Count 6.4 Thou/mm3 (3.8-10.6)
[2024-09-08 05:57] LABS: Alanine Aminotransferase 57 U/L (10-49); Albumin, Serum 3.4 gm/dL (3.4-4.8); Alkaline Phosphatase 152 U/L (46-116); Anion Gap 7 (7-16); Aspartate Amino Transferase 95 U/L (0-34); BUN/Creatinine Ratio 19 Ratio (12-20); Bilirubin,Total 0.6 mg/dL (0.3-1.2); Blood Urea Nitrogen 15 mg/dL (9-23); Calcium 8.6 mg/dL (8.3-10.6); Calcium (Corrected) 9.1 mg/dL (8.5-10.1); Carbon Dioxide 27.2 mMol/L (20.0-31.0); Chloride 103 mMol/L (98-107); Creatinine (Component) 0.8 mg/dL (0.6-1.3); Estimated Creatinine Clearance 78.4 mL/min (>60); Globulin 3.4 gm/dL (2.3-3.5); Glucose 102 mg/dL (74-106); Magnesium 1.8 mg/dL (1.6-2.6); Osmolality,Calculated 274 (275-295); Potassium 3.9 mMol/L (3.4-5.1); Sodium 137 mMol/L (136-145); Total Protein 6.8 gm/dL (5.7-8.2); eGFR > 60 See Note
[2024-09-08] MEDS: PANTOPRAZOLE INJ 40 MG VIAL IV (09:22)
[2024-09-08] MEDS: DOCUSATE SOD 100 MG CAPSULE PO (09:22)
[2024-09-08] MEDS: CLOPIDOGREL BISULFATE 75 MG TABLET PO (09:22)
[2024-09-08] MEDS: cefTRIAXone/D5w 1gm IV premix 50 ML IV (09:23)
[2024-09-08] MEDS: carVEDILOL 3.125 MG TABLET 6.25 MG PO (09:25)
[2024-09-08] MEDS: ENOXAPARIN SOD INJ 40 MG/0.4 ML SYRINGE SC (09:29)
--- NOTE | 2024-09-08 11:09 | PC.NURSE ---
HOSPITALIST CALLED D/T PATIENTS PENDING D/C TO SNF. PATIENT HAS HAD NO BM SINCE 09/05. WILL NEED TO HAVE BM BEFORE D/C.
[2024-09-08] MEDS: INSULIN LISPRO (AdmeLOG) 1 UNIT/0.01 ML UNIT SC (12:24)
--- NOTE | 2024-09-08 15:33 | PD.RESDS ---
Planned Discharge Date 09/08/24 DS: Providers Provider Date of admission: 09/05/24 14:03 Primary care physician: Sanjay Paul MD Admitting Provider: Maxi Valverde MD Attending Provider on Admission: Maxi Valverde MD Consults: 09/05/24 11:19 Consult to Neurology / Tele-Neurology Routine Comment: Consulting Provider: [facility] 09/05/24 13:53 PT [Referral Physical Therapy] Stat Comment: Physician Instructions: Referral Speech Therapy Stat Comment: 09/05/24 15:30 Consult to Neurology / Tele-Neurology Stat Comment: Consulting Provider: Adam Aquino Attending Provider on DC: Maxi Valverde MD Discharging Provider: Maxi Valverde MD DS: Diagnosis Problem List Completed Was Problem List Reviewed/Reconciled?: Yes Hospital Course Hospital Course Hospital course: 79 y/o M with PMHx of Hypertension, Diabetes, previous CVA (2020), urinary incontinence, hx of chronic UTIs presented to the ED after developing right lower and upper extremity weakness and slurred speech. Patient states he went to sleep around 8pm on 09/04/2024 and reports having chills at this time and bilateral blueish discoloration of the upper extremities. Later in the morning patient went to take a shower and was unable to move his right lower extremity to get out of the shower, followed by right upper extremity weakness and ambulance was called and brought to the ED. Patient has history of prior CVA but states he had no residual symptoms after undergoing PT and that these symptoms are new. In the ED vitals on arrival showed BP 101/67, HR 86, RR 20, Temp 98.5, saturating 94% on 2L NC, Labs show elevated WBCs 19.7, K 3.0, HCO3- 19.9, hypomagnesemia 1.2, low Ca 8.2, elevated alk phos 136, troponins negative, lactic acid 2.8, Tele neurology consulted NIHSS:4.Head CT showed Negative for acute hemorrhage, mass effect or midline shift, Bilateral basal ganglia and left brainstem infarcts as above, the 11 mm left, brainstem infarct may be acute, the appearance should be clinically correlated, Head/Neck CTA showed No significant neck arterial stenoses, No cerebral large vessel arterial occlusions, thrombus, dissection or cerebral aneurysm. MRI was done showed Negative for acute hemorrhage mass effect or midline shift, No acute infarct, No large vessel occlusions. Echo bubble study negative. Dr. Aquino, neurology was consulted and recommended Plavix 75mg q day, aspirin hold because history of severe bleeding in past. Continue high intensity statin. Patient also had a positive UA and blood culture that was pansensitive. Patient was given antibiotics while inpatient and will be discharged with cefpodoxime x 7 days. Patient is stable and will discharge to SNF per physical therapy recommendations Addendum: Patient was discharged on 09/07/24, however due to insurance authorization he did not leave. We have since received successful insurance authorization and patient is stable for discharge. No changes. #Sepsis secondary to UTI #Lactic acidosis-resolved #CVA-ruled out #Atrial fibrillation # hx of GI Bleed #Hx of HFrEF 40-45% #Hx of HTN #Hx of HLD #Diabetes type II The patient's plan was discussed with attending Dr. Valverde and senior resident Dr. Nataly Haley, PGY1 Internal Medicine Senior resident attestation: Patient evaluated and examined at the bedside, plan of care discussed with rest of the team including my attending physician, except as noted. Continue antibiotic for 7 more days, for urinary tract infection. Recommend discontinuing Jardiance due to concern for repeated urine tract infections. And discontinue rosuvastatin as you are being discharged with atorvastatin 80 mg. Follow up with Neurologist Dr Aquino within in 2 weeks of discharge, you may need to call her office to schedule an appointment. Follow up with Primary care physician with labs within 3-5 days of discharge. If symptoms persist or worsen, return to the Emergency Department. Nataly PGY2 Time Spent with Patient Time attestation: Total time spent providing and/or coordinating discharge services: Time spent: Greater than 30 minutes Quality: Stroke Pt Provided Written Stroke Discharge Instructions: Yes Exam Vital Signs Temp Pulse Resp BP Pulse Ox O2 Del Method O2 Flow Rate 97.8 F 66 17 139/88 H 96 Room Air 0 09/08/24 12:00 09/08/24 12:00 09/08/24 12:00 09/08/24 12:00 09/08/24 12:00 09/08/24 12:00 09/08/24 12:00 Narrative Exam GENERAL: NAD, NC/AT, responsive/cooperative. AAOx3 HEENT: Moist mucosa. Eyes open, symmetrical, & clear CARDIO: No chest pain on palpation. Heart RRR, no obvious murmurs PULM: No noted coughing/dyspnea. Lungs CTA B/L, no R/W/R GI: Abdomen soft, nondistended, no pain on palpation. BSx4 URO/PANTOGRAPH TRANSFERRER:: No further abnormalities noted. SKIN/MSK/EXT: No wounds/rashes/edema/amputations, no pain on palpation. Pedal pulses present B/L NEURO: AAOx3, right sided upper and lower extremity weakness-improving Discharge Plan Plan Patient Disposition: Xfer Skilled Nsg Fac (SNF) Disposition Comment: Hospitalist admit Dr Aquino consult Patient condition on transfer: Benefits outweigh risks Care Plan Goals: Continue antibiotic for 7 more days, for urinary tract infection. Recommend discontinuing Jardiance due to concern for repeated urine tract infections. And discontinue rosuvastatin as you are being discharged with atorvastatin 80 mg. Follow up with Neurologist Dr Aquino within in 2 weeks of discharge, you may need to call her office to schedule an appointment. Follow up with Primary care physician with labs within 3-5 days of discharge. If symptoms persist or worsen, return to the Emergency Department. Prescriptions/Referrals Prescriptions/Med Rec: New cefpodoxime 200 mg tablet 200 mg PO BID Qty: 14 0RF Rx Instructions: must administer with a meal/food Continued carvedilol [Coreg] 3.125 mg Tablet 6.25 mg PO BID metformin 1,000 mg tablet 1,000 mg PO BIDAC Hold Instructions: Resume on 12/23/21. Held due to Kidney injury. Please follow up with PCP for re-initiation to resume. ferrous sulfate 325 mg (65 mg iron) Tablet 325 mg PO QDAY Hold Instructions: Resume on 07/31/24. Follow up with PCP atorvastatin 80 mg Tablet 80 mg PO QDAY clopidogrel 75 mg Tablet 75 mg PO QDAY Januvia 100 mg Tablet 100 mg PO QDAY sacubitril-valsartan [Entresto] 24-26 mg Tablet 1 tab PO BID Discontinued Jardiance 10 mg tablet 10 mg PO QDAY Qty: 30 0RF rosuvastatin 40 mg Tablet 40 mg PO QPM Referrals: Sanjay Paul MD [Primary Care Provider] - Patient/Caregiver Discharge Instructions Education Materials: Anatomy of the Male Urinary Tract, Urinary Tract Infections in Men, Acute Kidney Failure Dc, Discharge Instructions for Stroke Print Language: [place] Stand Alone Forms: Mari Award Info., Patient Portal Info Letter Discharge Order Discharge Orders: Discharge (Routine); Ordered 09/07/24 Ordered By: Gracie Edwards Quality Discharge Quality Measures VTE prophylaxis MD Attestestation MD Attestation I have examined the patient, reviewed labs and imaging findings, discussed the case with the resident(s), and reviewed entered orders. I agree with the plan of care as outlined in this note. Dr. Valverde
--- NOTE | 2024-09-08 16:44 | PC.SS ---
Private Chef (BRANDT) [place] met with patient to discuss discharge plan. SW introduced self, role and reason for visit. Patient appeared alert and oriented to self, place and situation. Patient is in agreement with going to [facility]. Patient is unable to secure. BRANDT asked Spine Surgeon, Katie for [facility] for [facility] since [facility] [employer] could not assist with transportation. EMS ETA scheduled for 1800. BRANDT notified [facility]-Admission Coordinator, Julia. BRANDT notified RN-Malika.
== END 2024-09-08 18:10 | disposition skilled nursing facility (03) | DRG 872 ==
LOC: SERX 12:36 → SERHOLD 14:33 → S2NX 15:36
PROVIDERS: Student in an Organized Health Care Education/Training Program; Admitting Provider Student in an Organized Health Care Education/Training Program; Emergency Provider Emergency Medicine; PCP Family Medicine; Visit Provider Student in an Organized Health Care Education/Training Program
DX: A41.9 Sepsis, unspecified organism (principal); I69.351 Hemiplegia and hemiparesis following cerebral infarction affecting right dominant side; N39.0 Urinary tract infection, site not specified; E87.20 Acidosis, unspecified; I50.22 Chronic systolic (congestive) heart failure; R47.1 Dysarthria and anarthria; E78.5 Hyperlipidemia, unspecified; E11.9 Type 2 diabetes mellitus without complications; I48.91 Unspecified atrial fibrillation; I11.0 Hypertensive heart disease with heart failure; E83.42 Hypomagnesemia; Z66 Do not resuscitate
CPT/HCPCS: 36415; 70450; 70496; 70498; 70544; 71045; 80053; 80061; 80307; 81001; 82270; 82803; 83036; 83605; 83735; 84100; 84145; 84443; 84484; 84703; 85014; 85018; 85025; 85610; 85730; 87040; 87077; 87086; 87186; 92526; 93005; 93306; 96372; 96374; 97162; 99291; A4649; J0696; J1650; J1815; J2470; J2543; J3475; J3480; J7030; J7050; Q9967; A9270

== ENCOUNTER → 2024-11-16 | Outpatient (CLI) | payer MEDICARE, SELFPAY ==
[2024-11-16 09:52] LABS: Collection Type, Urine Clean Catch
[2024-11-16 10:09] LABS: Basophils % (Auto) 1 % (0-2.5); Eosinophils # (Auto) 0.1 Thou/mm3 (0.0-0.5); Eosinophils % (Auto) 1 % (0-10); Hematocrit 41.9 % (41.0-53.0); Hemoglobin 13.8 g/dL (13.5-16.0); Immature Granulocytes % (Auto) 1 % (0-0); Immature Granulocytes Auto 0.04 Thou/mm3 (0.00-0.00); Lymphocytes # (Auto) 1.4 Thou/mm3 (1.0-4.8); Lymphocytes % (Auto) 17 % (10-50); Mean Corpuscular HGB Conc 32.9 g/dl (31.0-37.0); Mean Corpuscular Hemoglobin 30.4 pg (25.0-35.0); Mean Corpuscular Volume 92 fL (80-100); Monocytes # (Auto) 0.6 Thou/mm3 (0.0-0.8); Monocytes % (Auto) 8 % (0-12); Neutrophils % (Auto) 73 % (37-80); Nucleated Red Blood Cell % 0 /100 WBC (0); Platelet Count 241 Thou/mm3 (140-440); RDW Standard Deviation 50.4 fL (35.1-43.9); Red Blood Count 4.54 Miln/mm3 (4.50-5.90); White Blood Count 8.3 Thou/mm3 (3.8-10.6)
[2024-11-16 10:20] LABS: Glucose Estimated Average 120 mg/dL (80-131); Hemoglobin A1C 5.8 % Hgb (4.8-6.0)
[2024-11-16 10:24] LABS: Bilirubin,Urine Negative (Negative); Blood,Urine 3+ (Negative); Clarity,Urine Turbid (Clear/Hazy); Glucose, Urine Negative (Negative); Ketones,Urine Negative (Negative); Leukocyte Esterase,Urine Positive (Negative); Nitrite,Urine Negative (Negative); Protein,Urine 1+ (Neg - Trace); RBC,Urine 2168 /hpf (0-3); Specific Gravity,Urine 1.024 (1.001-1.035); Squamous Epithelial Cell,Urine 4 /hpf (0-5); Urobilinogen,Urine Negative mg/dL (0.0-1.0); WBC,Urine 147 /hpf (0-5)
[2024-11-16 10:28] LABS: Creatinine MALB Rnd Ur 118 mg/dL (30-125); Microalbumin Creat Ratio 137 mg/gCrea (<30); Microalbumin, Random Urine 162 mg/L (0-300)
[2024-11-16 10:32] LABS: Alanine Aminotransferase 44 U/L (10-49); Albumin, Serum 4.2 gm/dL (3.4-4.8); Albumin/Globulin Ratio 1.2 (1.2-2.2); Alkaline Phosphatase 165 U/L (46-116); Anion Gap 8 (7-16); Aspartate Amino Transferase 49 U/L (0-34); BUN/Creatinine Ratio 26 Ratio (12-20); Blood Urea Nitrogen 21 mg/dL (9-23); Calcium 9.5 mg/dL (8.3-10.6); Calcium (Corrected) 9.5 mg/dL (8.5-10.1); Carbon Dioxide 26.6 mMol/L (20.0-31.0); Cardiac Risk Estimate 2.5 RATIO (4.0-6.7); Chloride 107 mMol/L (98-107); Cholesterol 102 mg/dL (132-200); Creatinine (Component) 0.8 mg/dL (0.6-1.3); Globulin 3.5 gm/dL (2.3-3.5); Glucose 106 mg/dL (74-106); HDL Cholesterol 41 mg/dL (40-60); LDL Cholesterol,Calculated 40 mg/dL (0-130); Osmolality,Calculated 286 (275-295); Potassium 4.4 mMol/L (3.4-5.1); Sodium 142 mMol/L (136-145); Thyroid Stimulating Hormone 1.78 uIU/mL (0.55-4.78); Total Protein 7.7 gm/dL (5.7-8.2); Triglycerides 106 mg/dL (30-150); eGFR > 60 See Note
[2024-11-16 10:35] LABS: Color,Urine Amber (Lt Yel-Yel)
== END | disposition home or self-care (01) ==
PROVIDERS: PCP Family Medicine; Referring Provider Family Medicine; Visit Provider Internal Medicine
DX: Z00.00 Encounter for general adult medical examination without abnormal findings (principal); E11.59 Type 2 diabetes mellitus with other circulatory complications; E78.2 Mixed hyperlipidemia; I10 Essential (primary) hypertension
CPT/HCPCS: 36415; 80053; 80061; 81001; 82043; 82570; 83036; 84443; 85025

== ENCOUNTER 2025-03-13 11:45 | Inpatient (IN) | payer MEDICARE, BC, SELFPAY ==
--- NOTE | 2025-03-13 | XR_ITS ---
Examinations: MRI Brain without intravenous contrast. MRA brain without intravenous contrast. MRA carotids without intravenous contrast 3-D vascular reconstructions Date and time of exam: March 13, 2025, 1756 hours Comparison September 05, 2024 INDICATIONS: Stroke alert today, onset focal neurologic deficit Technique: Multiple axial and sagittal images of the brain have been obtained MRA brain carotid images without contrast obtained, including 3-D postprocessing, vascular maximum intensity projection images Findings: Sellaturcica is not enlarged. The optic chiasm and infundibular stalk are not remarkable. Prepontine and interpeduncular cisterns are not enlarged. No localized enlargement of the medulla or macey. Fourth ventricle and cerebellar tonsils normal in position. Subacute hemorrhage is not seen. Fourth ventricle is midline. Mass in the cerebellopontine angle region is not evident. 7th and 8th nerve complexes exhibits symmetry. Globes are symmetrical with no retro-orbital mass. Increased white matter signal moderate Diffusion-weighted images demonstrate 5 mm focus restricted diffusion left basal ganglia, diffusion image 12 Mass-effect upon the ventricular system is not identified. MRA carotid images no critical carotid stenoses. MRA brain images no cerebral large vessel arterial occlusions Impression: 5 mm acute infarct left basal ganglia
[2025-03-13 12:02] VITALS: BP 92/56; PULSE 85; RESP 18; TEMP 36.7; O2SAT 93
--- NOTE | 2025-03-13 12:08 | XR_ITS ---
Examination: CTA carotids with intravenous contrast CTA brain, head with intravenous contrast. 2-D sagittal, coronal reconstructions. 3-D reconstructions. Exam date and time: March 13, 2025 1219 hours INDICATIONS: Stroke alert, onset focal neurologic deficit weakness today, history of prior CVAs CTDI: vol (mGy) 11.5 DLP: (mGycm) 469 Technique: Multiple CTA axial brain, head carotid images post intravenous contrast injection 75 cc, [id number]. 2-D sagittal, coronal reconstructions. 3-D reconstructions, 3-D post processing including vascular maximum intensity projection images. Low dose protocols were performed. One or more of the following dose reduction techniques were used; automated exposure control, adjustment of the mA and/or KV according to patient size, use of iterative reconstruction technique. Findings: No significant common carotid carotid bifurcation or internal carotid artery stenoses Minimally dominant left vertebral artery with no critical stenoses No cerebral large vessel arterial occlusions or thrombus IMPRESSION: No significant neck arterial stenoses No cerebral large vessel arterial occlusions or thrombus
--- NOTE | 2025-03-13 12:08 | XR_ITS ---
Examination: CT brain head without contrast. 2-D sagittal coronal reconstructions Date and time of exam:March 13, 2025 1217 hours Comparison September 05, 2024 INDICATIONS: Stroke alert, onset focal neurologic deficit today, history stroke alert September 05, 2024, history bilateral basal ganglia and left brainstem infarcts CTDI: vol (mGy):51.9 DLP: (mGycm):1078 Technique: Multiple CT axial sections of the brain have been obtained, 5 mm slice thickness. Contrast has not been administered. 2-D sagittal, coronal reconstructions have been obtained Low dose protocols were performed. One or more of the following dose reduction techniques were used; automated exposure control, adjustment of the mA and/or KV according to patient size, use of iterative reconstruction technique. Findings: No significant ventricular enlargement. 3 mm old appearing left brainstem infarct pontine level Intra-axial or extra-axial hemorrhage density is not seen. No mass effect or midline shift Basal cisterns are not remarkable. Fourth ventricle is midline. Cranial vault intact. Prominent right maxillary sinusitis Impression: Negative for acute hemorrhage, mass effect or midline shift
--- NOTE | 2025-03-13 12:08 | EKG_ITS ---
[facility] Test Date: 2025-03-13 Pat Name: FARZANEH PRICE Department: Room: - Gender: Male Insurance Claims Adjuster: : 1945 Requested By: Maranda Pichardo Order Number: [id number] Reading MD: Maranda Pichardo Measurements Intervals [place] Rate: 75 P: TN: QRS: -47 QRSD: 88 T: 1 QT: 399 QTc: 448 Interpretive Statements ATRIAL FIBRILLATION WITH ABERRANT CONDUCTION OR VENTRICULAR PREMATURE COMPLEXES LEFT AXIS DEVIATION [QRS AXIS < -30] LOW QRS VOLTAGE IN PRECORDIAL LEADS [QRS DEFLECTION < 1.0 mV IN CHEST LEADS] ANTEROSEPTAL MYOCARDIAL INFARCTION , OF INDETERMINATE AGE [40+ ms Q WAVE IN V1-V4] Compared to ECG 09/05/2024 22:41:10 Ventricular premature complex(es) now present Aberrant conduction of supraventricular beat(s) now present Myocardial infarct finding still present /store/S0/[id number]
--- NOTE | 2025-03-13 12:09 | PD.EDADULT ---
ED General RME/HPI General Chief complaint: Weakness Stated complaint: WEAKNESS Time Seen by Provider: 03/13/25 12:07 Arrival date/time: 03/13/25 11:45 RME / HPI RME / HPI narrative: 79-year-old male patient who lives alone, with significant history of hypertension diabetes mellitus, CVA, with right-sided weakness, came in with EMS for evaluation regarding worsening weakness to the right side of the body. Last well-known time was 7:00 this morning, patient was walking going to the restroom and was unable to get up due to worsening weakness to the right upper and right lower extremity. Patient usually walks with a walker. When the EMS arrived patient was noted to be needing a lot of help due to weakness. Patient told me that he had multiple episode of loose stools. Patient is not having worsening slurring of speech. Patient is not having any headache. Related Data Home Medications ?Medication ?Instructions ?Recorded ?Confirmed carvedilol 3.125 mg tablet (Coreg) 6.25 mg PO BID 10/10/20 09/05/24 metformin 1,000 mg tablet 1,000 mg PO BIDAC 10/10/20 09/05/24 ferrous sulfate 325 mg (65 mg 325 mg PO QDAY 08/21/22 09/05/24 iron) tablet atorvastatin 80 mg tablet 80 mg PO QDAY 09/05/24 09/05/24 clopidogrel 75 mg tablet 75 mg PO QDAY 09/05/24 09/05/24 sacubitril 24 mg-valsartan 26 mg 1 tab PO BID 09/05/24 09/05/24 tablet (Entresto) sitagliptin phosphate 100 mg 100 mg PO QDAY 09/05/24 09/05/24 tablet (Januvia) Previous Rx's ?Medication ?Instructions ?Recorded cefpodoxime 200 mg tablet 200 mg PO BID #14 tabs 09/07/24 Allergies Allergy/AdvReac Type Severity Reaction Status Date / Time onion Allergy Mild Numbness Verified 01/29/23 17:55 Review of Systems Review of Systems Narrative Review of Systems: Review of system reviewed and within normal limits except mentioned in HPI ED Exam Narrative Physical exam: VITAL SIGNS: Reviewed. GENERAL APPEARANCE: Alert and interactive, follows commands, no acute distress, HEAD AND FACE: Non-traumatic. ENT: PERRL, pink conjunctivitis, eyelid no trauma, Mucous membrane moist. NECK: Supple, nontender, no nuchal rigidity. CHEST: No tenderness, no crepitus, no paradoxical movement, no retractions. LUNGS: Clear, well ventilated, symmetric, no rales, no wheezing, no ronchi, no stridor, good breath sounds bilaterally. HEART: Regular rate, regular rhythm, no murmur, no gallops. ABDOMEN: Soft, positive bowel sounds, nondistended, no guarding, nontender, no rebound, no masses, RECTAL: Deferred. GENITAL: Deferred. NEUROLOGICAL: Gross motor function intact sensory function intact in the left upper extremity and lower extremity, unable to lift the right lower extremity, weakness on muscle drip on the right lower extremity mild right upper extremity drifting, Appropriate for age. MUSCULOSKELETAL: low back nontender, full range of motion. EXTREMITIES: Nontender, full range of motion. SKIN: Color pink, dry, no rash, no lacerations, no abrasions, no contusions. LYMPHATICS: Deferred. Course Quality Measures none Orders Category Date Time Status Bedside Blood Glucose NOW Care 03/13/25 12:08 Active COVID-19 Screening Questionnaire NOW Care 03/13/25 15:28 Active Prop Maker NOW Care 03/13/25 12:08 Active Continuous Pulse Oximetry NOW Care 03/13/25 12:08 Completed Decision to Admit X1 Care 03/13/25 15:28 Completed EKG (ED ONLY) *Do not use* NOW Care 03/13/25 12:08 Completed In and Out Catheter NEEDED Care 03/13/25 12:08 Active Insert IV NOW Care 03/13/25 12:08 Active NIH Stroke Scale now Care 03/13/25 12:08 Active NPO NOW Care 03/13/25 12:08 Active Nurse Swallow Screen x1 Care 03/13/25 12:08 Active Consult to Neurology / Tele-Neurology Routine Cons 03/13/25 12:[address] angio stroke protocol Stat Exams 03/13/25 12:[address] stroke protocol Stat Exams 03/13/25 12:08 Completed EKG (ED Only) Stat Exams 03/13/25 12:08 Draft CBC Stat Lab 03/13/25 12:22 Completed Comprehensive Metabolic Panel Stat Lab 03/13/25 12:22 Completed Drug Screen,Urine Stat Lab 03/13/25 13:20 Completed Magnesium Stat Lab 03/13/25 12:22 Completed Partial Thromboplastin Time Stat Lab 03/13/25 12:22 Completed Prothrombin Time with INR Stat Lab 03/13/25 12:22 Completed Troponin I Stat Lab 03/13/25 12:22 Completed Urinalysis Stat Lab 03/13/25 13:20 Completed Urine Culture Stat Lab 03/13/25 13:20 Received Magnesium Sulfate 2 GM Ivpb [Magnesium Sulfate Ivpb] Med 03/13/25 15:02 Active 2 gm in 50 ml IV X1 Ondansetron Inj [Zofran Inj] Med 03/13/25 12:07 Active 4 mg IVP Q4HR PRN cefTRIAXone/D5w 1gm IV premix [Rocephin/D5w 1gm IV Med 03/13/25 14:53 Discontinued premix] 1 gm in 50 ml IV X1 Oxygen Delivery NOW RT 03/13/25 12:08 Active Vital Signs Vital signs: Vital Signs Temperature 98.1 F 03/13/25 12:02 Pulse Rate 85 03/13/25 12:02 Respiratory Rate 18 03/13/25 12:02 Blood Pressure 92/56 L 03/13/25 12:02 Pulse Oximetry (%) 93 L 03/13/25 12:02 Oxygen Delivery Method Room Air 03/13/25 12:02 Discharge Plan Plan Patient Disposition: Admit Acute Care w/in Hospital Discharge Disposition comment: Stable Prescriptions/Referrals Prescriptions/Med Rec: No Action carvedilol [Coreg] 3.125 mg Tablet 6.25 mg PO BID metformin 1,000 mg tablet 1,000 mg PO BIDAC ferrous sulfate 325 mg (65 mg iron) Tablet 325 mg PO QDAY atorvastatin 80 mg Tablet 80 mg PO QDAY clopidogrel 75 mg Tablet 75 mg PO QDAY Januvia 100 mg Tablet 100 mg PO QDAY sacubitril-valsartan [Entresto] 24-26 mg Tablet 1 tab PO BID cefpodoxime 200 mg tablet 200 mg PO BID Qty: 14 0RF Rx Instructions: must administer with a meal/food Referrals: Sanjay Paul MD [Primary Care Provider] - In 1 week Problem List Clinical Impression: Stroke-like symptom, Urinary tract infection Patient/Caregiver Discharge Instructions Print Language: French Stand Alone Forms: Mari Award Info., Patient Portal Info Letter MDM Narrative MDM hospital course: 79-year-old male patient who lives alone, with significant history of hypertension diabetes mellitus, CVA, with right-sided weakness, came in with EMS for evaluation regarding worsening weakness to the right side of the body. Last well-known time was 7:00 this morning, patient was walking going to the restroom and was unable to get up due to worsening weakness to the right upper and right lower extremity. Patient usually walks with a walker. When the EMS arrived patient was noted to be needing a lot of help due to weakness. Patient told me that he had multiple episode of loose stools. Patient is not having worsening slurring of speech. Patient is not having any headache. Stroke alert was initiated right away. Spoke with teleneurologist, who examined the patient, there was no recommendation about giving tPA at this time. Admit to hospital for stroke workup. EKG as interpreted by me showed atrial fibrillation, ventricular rate of 75 bpm, no ST segment elevation depression noted. CT scan of the head came back unremarkable.CTA of the head and neck came back unremarkable. Urinalysis positive for UTI. Patient blood pressure was also noted to be slightly hypotensive. Patient was given a liter of IV fluids and was also given IV ceftriaxone. Spoke with hospitalist who admitted the patient. Medication Administration(s) Medication Administration History Magnesium Sulfate (Magnesium Sulfate Ivpb) 2 gm in 50 mls @ 25 mls/hr IV X1 ONE Stop: 03/13/25 17:01 Last Admin: 03/13/25 15:49 Dose: 25 mls/hr Documented By: LEA Ondansetron HCl (Ondansetron Inj 2 Mg/Ml Inj 2 Ml) 4 mg IVP Q4HR PRN PRN Reason: NAUSEA OR VOMITING Stop: 04/12/25 12:06 Discontinued Medications Ceftriaxone Sodium/Dextrose (Rocephin/D5w 1gm Iv Premix) 1 gm in 50 mls @ 100 mls/hr IV X1 ONE Stop: 03/13/25 15:22 Last Infusion: 03/13/25 15:39 Dose: Infused Documented By: Admin: 03/13/25 15:09 Dose: 100 mls/hr Documented By: LEA
[2025-03-13 12:30] LABS: Basophils % (Auto) 0 % (0-2.5); Eosinophils % (Auto) 0 % (0-10); Hematocrit 37.5 % (41.0-53.0); Immature Granulocytes % (Auto) 1 % (0-0); Immature Granulocytes Auto 0.06 Thou/mm3 (0.00-0.00); Lymphocytes # (Auto) 0.4 Thou/mm3 (1.0-4.8); Lymphocytes % (Auto) 3 % (10-50); Mean Corpuscular HGB Conc 34.7 g/dl (31.0-37.0); Mean Corpuscular Hemoglobin 31.3 pg (25.0-35.0); Mean Corpuscular Volume 90 fL (80-100); Monocytes # (Auto) 0.1 Thou/mm3 (0.0-0.8); Monocytes % (Auto) 1 % (0-12); Neutrophils % (Auto) 95 % (37-80); Nucleated Red Blood Cell % 0 /100 WBC (0); Platelet Count 172 Thou/mm3 (140-440); RDW Standard Deviation 46.3 fL (35.1-43.9); Red Blood Count 4.16 Miln/mm3 (4.50-5.90); White Blood Count 11.6 Thou/mm3 (3.8-10.6)
[2025-03-13 12:34] VITALS: PULSE 80; PULSE 83; RESP 18; RESP 92
[2025-03-13 12:44] LABS: INR 1.2 (0.9-1.3); Partial Thromboplastin Time 26.6 Seconds (22.0-36.0); Prothrombin Time 13.4 Seconds (9.0-12.2)
[2025-03-13 12:48] VITALS: BMI 27.2
[2025-03-13 12:51] LABS: Alanine Aminotransferase 43 U/L (10-49); Albumin, Serum 3.8 gm/dL (3.4-4.8); Albumin/Globulin Ratio 1.3 (1.2-2.2); Alkaline Phosphatase 149 U/L (46-116); Anion Gap 13 (7-16); Aspartate Amino Transferase 58 U/L (0-34); BUN/Creatinine Ratio 11 Ratio (12-20); Bilirubin,Total 1.3 mg/dL (0.3-1.2); Blood Urea Nitrogen 14 mg/dL (9-23); Calcium 8.8 mg/dL (8.3-10.6); Chloride 105 mMol/L (98-107); Creatinine (Component) 1.3 mg/dL (0.6-1.3); Estimated Creatinine Clearance 46.8 mL/min (>60); Glucose 88 mg/dL (74-106); Magnesium 1.4 mg/dL (1.6-2.6); Osmolality,Calculated 278 (275-295); Sodium 140 mMol/L (136-145); Total Protein 6.8 gm/dL (5.7-8.2); Troponin I 0.021 ng/mL (0.0-0.045); eGFR 56 See Note
--- NOTE | 2025-03-13 12:59 | ESCONSULT_ITS ---
Tele Neuro Consultation Consultation Date 03/13/25 Most Recent Vital Signs Last Vital Signs Temp 98.1 F 03/13/25 12:02 Pulse 80 03/13/25 12:34 Resp 18 03/13/25 12:34 BP 92/56 L 03/13/25 12:02 Pulse Ox 93 L 03/13/25 12:02 O2 Del Method Room Air 03/13/25 12:02 Laboratory-Coagulation Panel PT 13.4 Seconds (9.0-12.2) H 03/13/25 12:22 INR 1.2 (0.9-1.3) 03/13/25 12:22 APTT 26.6 Seconds (22.0-36.0) 03/13/25 12:22 Consultation Narrative [facility] Patient Name:???FARZANEH PRICE Date of :???1945 Identification Number:??? 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 The patient reports weakness starting at 7 am this morning. He has acute on chronic RLE weakness today which was appreciated on examination. NIHSS of 1. Stat imaging without acute changes. Etiology of symptoms today could represent new infarct vs recrudescence vs UTI. ? ?Recs: ?- check for UTI ?- if negative then MRI brain wo Our recommendations are outlined below. Recommendations: ? Stroke/Telemetry Floor ? Neuro Checks (Q4) ? Bedside Swallow Eval ? DVT Prophylaxis ? IV Fluids, Normal Saline ? Head of Bed 30 Degrees ? Euglycemia and Avoid Hyperthermia (PRN Acetaminophen) Sign Out: ? Discussed with Emergency Department Provider Advanced Imaging:CTA Head and Neck Completed. LVO:No Patient is not a candidate for SARA Metrics: Last Known Well: 03/13/2025 07:00:00 Dispatch Time: 03/13/2025 12:11:10 Arrival Time: 03/13/2025 11:45:00 Initial Response Time: 03/13/2025 12:25:09Symptoms: unable to get off the toilet. Initial patient interaction: 03/13/2025 12:27:09 NIHSS Assessment Completed: 03/13/2025 12:38:08Patient is not a candidate for Thrombolytic. Thrombolytic Medical Decision: 03/13/2025 12:38:09Patient was not deemed candidate for Thrombolytic because of following reasons: LKW outside 4.[address] Head: I personally reviewed all the CT images that were available to me and it showed: no acute intracranial abnormalities. Agree with radiology report. Primary Provider Notified of Diagnostic Impression and Management Plan on: 03/13/2025 12:48:19 History of Present Illness:Patient is a 79 year old Male. Patient was brought by EMS for symptoms of unable to get off the toilet. 79 year old man presents today from home via ems after being unable to get off the toilet. The patient reports developing diarrhea and then taking a shower. Afterward, he again went to the bathroom and was unable to stand up due to weakness. He stayed on the commode for about 4 hours. His daughter initially found him and waited for additional family to help assist. When the patient was not improving, ems was called. Weakness started around 7 am after the patient woke up. He has a prior history of stroke with residual RLE weakness. He uses a walker to ambulate around the house and takes clopidogrel for secondary prevention. He has urinary incontinence and history of UTIs, which cause similar weakness in the past. He does not report any new deficits today. The patient also lives alone and feels he is no longer safe to do so given his chronic weakness and other comorbidities. ? Past Medical History: ?Hypertension ?Diabetes Mellitus ?Stroke Medications: No Anticoagulant use? Antiplatelet use:?Yes?plavix 75 Reviewed EMR for current medications Allergies:? Reviewed Social History: Alcohol Use: No Family History: There is no family history of premature cerebrovascular disease pertinent to this consultation ROS : 14 Points Review of Systems was performed and was negative except mentioned in HPI. Past Surgical History: There Is No Surgical History Contributory To Today?s Visit ? Examination: BP(133/75),?Pulse(85),?Blood Glucose(97) 1A: Level of Consciousness - Alert; keenly responsive?+ 0 1B: Ask Month and Age - Both Questions Right?+ 0 1C: Blink Eyes & Squeeze Hands - Performs Both Tasks?+ 0 2: Test Horizontal Extraocular Movements - Normal?+ 0 3: Test Visual Lane - No Visual Loss?+ 0 4: Test Facial Palsy (Use Grimace if Obtunded) - Normal symmetry?+ 0 5A: Test Left Arm Motor Drift - No Drift for 10 Seconds?+ 0 5B: Test Right Arm Motor Drift - No Drift for 10 Seconds?+ 0 6A: Test Left Leg Motor Drift - No Drift for 5 Seconds?+ 0 6B: Test Right Leg Motor Drift - Drift, but doesn't hit bed?+ 1 7: Test Limb Ataxia (FNF/Heel-Andres) - No Ataxia?+ 0 8: Test Sensation - Normal; No sensory loss?+ 0 9: Test Language/Aphasia - Normal; No aphasia?+ 0 10: Test Dysarthria - Normal?+ 0 11: Test Extinction/Inattention - No abnormality?+ 0 NIHSS Score:?1 Pre-Morbid Modified Eli Scale:3 Points = Moderate disability; requiring some help, but able to walk without assistance Spoke with :?Dr. Pichardo This consult was conducted in real time using interactive audio and video technology. Patient was informed of the technology being used for this visit and agreed to proceed. Patient located in hospital and provider located at home/office setting. Patient is being evaluated for possible acute neurologic impairment and high probability of imminent or life-threatening deterioration. I spent total of 35 minutes providing care to this patient, including time for face to face visit via telemedicine, review of medical records, imaging studies and discussion of findings with providers, the patient and/or family. Dr Everett Mcpherson [facility] For Inpatient follow-up with [facility] physician please call [facility] at . As we are not an outpatient service for any post hospital discharge needs please contact the hospital for assistance. If you have any questions for the [facility] physicians or need to reconsult for clinical or diagnostic changes please contact us via [facility] at .
[2025-03-13 13:26] LABS: Collection Type, Urine Clean Catch
[2025-03-13 13:49] LABS: Amphetamine/Methamp Scrn,U Negative (Negative); Barbiturate Screen,Urine Negative (Negative); Benzodiazepines Screen,Urine Negative (Negative); Benzoylecgonine Screen, Ur Negative (Negative); Fentanyl Screen,Urine Negative (Negative); Opiate Screen,Urine Negative (Negative); THC Screen,Urine Negative (Negative)
[2025-03-13 13:51] LABS: Bacteria,Urine 3+; Bilirubin,Urine Negative (Negative); Blood,Urine 3+ (Negative); Glucose, Urine Negative (Negative); Ketones,Urine Trace (Negative); Leukocyte Esterase,Urine Positive (Negative); Nitrite,Urine Negative (Negative); Protein,Urine 2+ (Neg - Trace); RBC,Urine 3479 /hpf (0-3); Squamous Epithelial Cell,Urine 8 /hpf (0-5); Urobilinogen,Urine Negative mg/dL (0.0-1.0); WBC,Urine 49 /hpf (0-5)
[2025-03-13 13:54] LABS: Clarity,Urine Turbid (Clear/Hazy); Color,Urine Lt-Orange (Lt Yel-Yel)
[2025-03-13] MEDS: cefTRIAXone/D5w 1gm IV premix 1 GM/50 ML BAG IV (15:09)
[2025-03-13 15:24] VITALS: PULSE 75; RESP 26; RESP 95
[2025-03-13] MEDS: Magnesium Sulfate 2 GM Ivpb 2 GM/50 ML BAG IV (15:49)
--- NOTE | 2025-03-13 16:35 | ESHP_ITS ---
Documentation for date of: 03/13/25 HPI History of Present Illness Chief complaint: weakness History of present illness: 79 y/o M with PMHx of Hypertension, Diabetes, previous CVA (2020), urinary incontinence, hx of chronic UTIs, prostate surgery due to severe BPH, atrial fibrillation presenting to ED today with chief complaint of weakness. Patient's daughter was at bedside who assisted with history. This morning patient was using the bathroom and sitting on the toilet for a couple hours as he was unable to get up. Daughter came to visit him at the house and found him sitting on the toilet. Said that he has been having worsening lower extremity weakness and difficulty in walking. Patient typically walks with assistance of a device and has no issues completing ADLs. He follows with Dr. Aquino outpatient with last appointment approximately 1 month ago. He is compliant with medications including his Plavix. Also endorsing few episodes of loose stool past few days and some difficulty in urination. Denies dysuria, shortness of breath, chest pain, palpitations. He is alert and oriented x 3. 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 Cordova and last appointment for follow-up was about 1 year ago. There is concern for new onset stroke therefore stroke alert initiated while in the ED. In the ED, BP soft 92/56, HR 85, 93% O2 on 2 L nasal cannula. Mild leukocytosis 11.6, magnesium 1.4, AST 58, UA positive for UTI. CT head negative for acute hemorrhage, CTA head neck negative for LVO or stenoses, EKG shows A-fib rate 75. Telemetry neuro was consulted and NIHSS score was 1, not a candidate for thrombolytic due to LKW outside window. Recommended to admit patient for further workup of stroke. PMH: As noted above PSH: Prostate surgery FamHx: No history of strokes Social:denies alcohol, denies smoking, denies illicit drug use Meds: Coreg 6.25 BID, clopidogrel 75 mg daily, Entresto 1 tab BID, ferrous sulfate, Januvia 100 mg daily, metformin 1000 mg BID Allergies: NKDA Review of Systems Review of Systems Systems Reviewed: All systems reviewed, normal except as documented Exam Vital Signs Temp Pulse Resp BP Pulse Ox O2 Del Method O2 Flow Rate 98.1 F 75 26 H 92/56 L 93 L Room Air 2 03/13/25 12:02 03/13/25 15:24 03/13/25 15:24 03/13/25 12:02 03/13/25 12:02 03/13/25 12:02 03/13/25 15:24 Narrative Exam General: Elderly male, No acute distress, cooperative HEENT: NCAT, No JVD noted. Mucosa moist. Pupils are equal and reactive to light bilaterally Cardiovascular: Normal S1 and S2. Regular rate and rhythm. Respiratory: Lungs are clear to auscultation bilaterally. No wheezing or crackles heard. Abdomen: Soft, nontender, not distended, normal bowel sounds. Skin: Warm to touch, dry, no rashes noted Musculoskeletal: No gross injuries. Able to move all 4 extremities. No pitting edema Neuro: Alert and oriented x3. No focal neuro deficits. Strength 4 out of 5 upper and lower extremity, no facial drooping. Psych: Normal affect and mood Results: Labs 03/14/25 04:40 03/14/25 04:40 Labs: Short CBC 03/13/25 Range/Units 12:22 WBC 11.6 H (3.8-10.6) Thou/mm3 Hgb 13.0 L (13.5-16.0) g/dL Hct 37.5 L (41.0-53.0) % Plt Count 172 (140-440) Thou/mm3 BMP 03/13/25 12:22 Sodium 140 Potassium 4.0 Chloride 105 Carbon Dioxide 22.0 BUN 14 Creatinine 1.3 Glucose 88 Calcium 8.8 Cardiac Enzymes 03/13/25 Range/Units 12:22 Troponin I 0.021 (0.0-0.045) ng/mL Liver Function 03/13/25 Range/Units 12:22 Total Bilirubin 1.3 H (0.3-1.2) mg/dL AST 58 H (0-34) U/L ALT 43 (10-49) U/L Alkaline Phosphatase 149 H (46-116) U/L Albumin 3.8 (3.4-4.8) gm/dL Urine 03/13/25 Range/Units 13:20 Urine Color Lt-[place] A (Lt Yel-Yel) Urine Clarity Turbid A (Clear/Hazy) Urine pH 6.0 (5.0-7.0) Ur Specific [place] 1.020 (1.001-1.035) Urine Protein 2+ A (Neg - Trace) Urine Glucose (UA) Negative (Negative) Quality Measures Quality Measures none Advance care planning discussed with:: patient Medications Home Medications and Allergies Home Medications ?Medication ?Instructions ?Recorded ?Confirmed ?Type carvedilol 3.125 mg tablet (Coreg) 6.25 mg PO BID 09/2003/13/25 History metformin 1,000 mg tablet 1,000 mg PO BIDAC 10/10/20 0 03/13/25 History ferrous sulfate 325 mg (65 mg 325 mg PO QDAY 08/21/22 03/13/25 History iron) tablet atorvastatin 80 mg tablet 80 mg PO QDAY 09/05/2403/13 History Held on 03/13/25. Instructions: Doctor's Order clopidogrel 75 mg tablet 75 mg PO QDAY 09/05/2403/13 History sacubitril 24 mg-valsartan 26 mg 1 tab PO BID 09/05/24 03/13/25 History tablet (Entresto) sitagliptin phosphate 100 mg 100 mg PO QDAY 09/05/24 0 03/13/25 History tablet (Januvia) rosuvastatin 40 mg tablet 40 mg PO QDAY 03/13/2503/13 History Allergies Allergy/AdvReac Type Severity Reaction Status Date / Time onion Allergy Mild Numbness Verified 01/29/23 17:55 Visit Medications Acetaminophen (Acetaminophen 325 Mg Tablet) 650 mg PO Q6H PRN PRN Reason: PAIN 1-3 OR FEVER > 101 Stop: 04/12/25 16:03 Aspirin (Aspirin Ec 81 Mg Tabec) 81 mg PO QDAY GAUDENCIO Stop: 04/13/25 08:59 Atorvastatin Calcium (Atorvastatin Calcium 20 Mg Tablet) 80 mg PO HS GAUDENCIO Stop: 04/12/25 20:59 Magnesium Sulfate (Magnesium Sulfate Ivpb) 2 gm in 50 mls @ 25 mls/hr IV X1 ONE Stop: 03/13/25 17:01 Last Admin: 03/13/25 15:49 Dose: 25 mls/hr Sodium Chloride (Ns) 1,000 mls @ 75 mls/hr IV .[id number] GAUDENCIO Stop: 04/12/25 16:14 Ceftriaxone Sodium/Dextrose (Rocephin/D5w 1gm Iv Premix) 1 gm in 50 mls @ 100 mls/hr IV QDAY GAUDENCIO Stop: 03/21/25 08:59 Ondansetron HCl (Ondansetron Inj 2 Mg/Ml Inj 2 Ml) 4 mg IVP Q4HR PRN PRN Reason: NAUSEA OR VOMITING Stop: 04/12/25 12:06 Pantoprazole Sodium (Pantoprazole Inj 40 Mg Vial) 40 mg IVP QDAY GAUDENCIO Stop: 04/13/25 08:59 Sennosides (Senna Tablet) 1 tab PO QDAY GAUDENCIO; Protocol Stop: 04/13/25 08:59 Discontinued Medications Aspirin (Aspirin 325 Mg Tablet) 325 mg PO X1 ONE Stop: 03/13/25 16:12 Ceftriaxone Sodium/Dextrose (Rocephin/D5w 1gm Iv Premix) 1 gm in 50 mls @ 100 mls/hr IV X1 ONE Stop: 03/13/25 15:22 Last Infusion: 03/13/25 15:39 Dose: Infused Assessment & Plan Plan 79 y/o M with PMHx of Hypertension, Diabetes, previous CVA (2020), urinary incontinence, hx of chronic UTIs, prostate surgery due to severe BPH, atrial fibrillation, SOLITARIO presenting to ED today with chief complaint of weakness. This morning patient was using the bathroom and sitting on the toilet for a couple hours as he was unable to get up. Stroke alert called while in the ED. Teleneuro was consulted and recommended to admit patient for further workup of stroke. #Right-sided weakness #Previous CVA Likely secondary to TIA as the deficits have resolved. Physical exam at bedside shows strength 4/5 and proper movement of right side extremities. No slurred speech, facial symmetry. Last well-known around 7 AM this morning as he was using the bathroom patient was unable to get up from the toilet. Follows with Dr. Aquino outpatient since his last stroke. Teleneuro was consulted--NIHSS score 1, not a candidate for thrombolysis as LKW outside window. He received loading dose aspirin while in ED. CT head negative for acute hemorrhage, CTA head neck negative for LVO or stenoses, EKG shows A-fib rate 75. ?Dr. Aquino was consulted recommendations pending. ?Start aspirin 81 mg daily ? Carotid Doppler ultrasound pending ? Echo with bubble study pending ? MRI pending ?Physical therapy/speech pathology referral pending ? Head of bed elevation 30 degrees ? Continue permissive hypertension for 24 hours as per neurorecommendations ? 10 mg IV labetalol every 4 hours as needed if BP 220/120 ? Med recs pending- -atorvastatin 80 mg p.o. daily ?Lipid panel pending -NS maintenance at 80 cc/hr #Complicated UTI #BPH Patient has history of severe BPH that has been treated with surgery. There is also history of urinary retention which causes patient to become altered. UA positive for leukocyte esterase, 50 WBC, 3+ bacteria. ? Urine culture pending ? insert velásquez cath -monitor INOs - Ceftriaxone 1 g daily #Hypertension #Atrial fibrillation, rate controlled Patient follows with cardiology Dr. Cordova. Last appointment was about 1 year ago. Appears to be rate controlled Echo 09/05/24--EF 50-55%, RA severely dilated. EKG shows A-fib rate 75. -Clopidogrel 75 mg daily (held) ? Coreg 6.25 mg BID (holding for permissive htn) #Non-insulin dependent type 2 diabetes, well-controlled A1c 5.8 from 11/13. Glucose on admission 88. Patient takes metformin 1000 mg BID, Januvia 100 mg daily at home. -Held home medications -Bedside blood glucose checks ACHS -Insulin lispro sliding scale -Carb consistent low diet -A1c pending #SOLITARIO Was diagnosed with obstructive sleep apnea 10 years ago and does not use machine at home. ? Patient advised to follow-up outpatient for repeat sleep study ? CPAP at bedtime during admission Health maintenance: Dispo: tele for CVA workup FEN: low carb DVT prophylaxis: SCD CODE STATUS: Full code The patient's management plan was discussed with my attending physician Dr. Valverde. Marily Gonzalez, PGY-1 Attending Provider Attestation/Addendum I have examined the patient, reviewed labs and imaging findings, discussed the case with the resident(s), and reviewed entered orders. I agree with the plan of care as outlined in this note, with these additional summaries/recommendations: After examination of the patient and review of the clinical data, I feel that this patient needs admission to the hospital for further treatment and evaluation. 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 Patient seen at bedside. He appears relatively close to baseline. Patient was seen by teleneurology. NIH SS score of [address] head negative for acute hemorrhage, mass effect or midline shift. CTA with no LVO. Teleneurology recommends admission. We will just obtain MRI brain and echocardiogram. Symptoms likely related to UTI versus CVA. Order speech therapy and physical therapy referral. Continue aspirin 81 mg p.o. daily and atorvastatin 80 mg p.o. at bedtime. Urinalysis indicative of urinary tract infection. Order urine culture and start IV antibiotics. Place Velásquez catheter out of concern for urinary retention. Start insulin sliding scale and basal insulin for history of diabetes mellitus type 2. Target blood sugar of 140 and 180 while hospitalized. Pending home medication reconciliation. Mild hypomagnesia and replacement given. Repeat level in AM. Patient and daughter updated on the plan and in agreement. All questions answered to satisfaction. Please see residents note for additional details and management. Dr. Abram MD
[2025-03-13 16:37] VITALS: BP 109/73; PULSE 63; PULSE 77; RESP 17; RESP 18; O2SAT 95; O2SAT 96
[2025-03-13 17:10] VITALS: BP 107/56; PULSE 71; RESP 16; TEMP 36.6; O2SAT 94
[2025-03-13] MEDS: SODIUM CHLORIDE 0.9% 1000 ML 1,000 ML 75 ML IV (17:39)
[2025-03-13] MEDS: Aspirin 325 MG TABLET PO (17:39)
[2025-03-13 18:00] VITALS: BMI 27.1
[2025-03-13 20:00] VITALS: BP 97/52; PULSE 64; PULSE 71; RESP 23; TEMP 36.6; O2SAT 96
[2025-03-13] MEDS: ATORVASTATIN CALCIUM 20 MG TABLET 80 MG PO (20:33)
--- NOTE | 2025-03-13 23:51 | ESPR_ITS ---
Documentation for date of: 03/13/25 Subjective Subjective Interval history: Mr. Mann was seen in telemetry with family at the bedside. no new symptoms reported, continues to have right hemiparesis Exam - Neurology Vital Signs Temp Pulse Resp BP Pulse Ox O2 Del Method O2 Flow Rate 97.8 F 64 23 H 97/52 L 96 Nasal Cannula 2 03/13/25 20:00 03/13/25 20:00 03/13/25 20:00 03/13/25 20:00 03/13/25 20:00 03/13/25 20:00 03/13/25 20:00 FiO2 2 03/13/25 16:37 Narrative Exam GENERAL APPEARANCE: Well hydrated, well-nourished in no acute distress. HEENT: Normocephalic, atraumatic, extraocular movements intact. Pupils: Equal reacting to light and accommodation NECK: Supple, no JVD or bruits. CARDIOVASULAR: Heart: S1, S2 heard, irregular without S3-S4 or murmur no rubs or gallops. LUNGS/CHEST: Clear to auscultation bilaterally. No rails, rhonchi, or wheezing. Normal inspection. ABDOMEN: Soft, nontender, with normal bowel sounds. No pulsatile masses. No rebound, rigidity, or guarding. Normal inspection and palpation. EXTREMITIES: Normal inspection and palpation. No edema, clubbing or cyanosis. SKIN: Warm and dry without rashes. Normal inspection. MUSCULOSKELETAL: No cervical, thoracic, lumbar or midline bony tenderness. Normal inspection. NEURO: Alert, awake and oriented x3. Cranial nerves: II through XII grossly intact. Speech and language: Normal with no dysarthria or dysphasia. Motor system: Tone and bulk: Normal: Strength: right hemiparesis: residual, No pronator drift noted. Deep tendon reflexes: 2+ bilaterally symmetrical. Plantar reflex: Downgoing bilaterally. Sensory system: Intact to all modalities of sensation bilaterally. Coordination: Intact to [id number] and [id number] test bilaterally. No ataxia, no dysmetria, or dysdiadochokinesia noted. No intention tremors noted. Gait: not tested. No signs of meningeal irritation noted. PSYCHIATRIC: Normal mood and affect. Objective Labs 03/14/25 04:40 03/14/25 04:40 Labs: Laboratory Results - last 24 hr 03/13/25 03/13/25 12:22 13:20 WBC 11.6 H RBC 4.16 L Hgb 13.0 L Hct 37.5 L MCV 90 MCH 31.3 MCHC 34.7 RDW Std Deviation 46.3 H Plt Count 172 Neut % (Auto) 95 H Lymph % (Auto) 3 L [place] % (Auto) 1 Eos % (Auto) 0 Baso % (Auto) 0 Neut # (Auto) 11.0 H Lymph # (Auto) 0.4 L [place] # (Auto) 0.1 Eos # (Auto) 0.0 Baso # (Auto) 0.0 Immature Gran # (Auto) 0.06 H Absolute Nucleated RBC 0.00 Immature Gran % 1 H Nucleated RBC % 0 PT 13.4 H INR 1.2 APTT 26.6 Sodium 140 Potassium 4.0 Chloride 105 Carbon Dioxide 22.0 Anion Gap 13 BUN 14 Creatinine 1.3 Estim Creat Clear Calc 46.8 L eGFR 56 L BUN/Creatinine Ratio 11 L Glucose 88 Calculated Osmolality 278 Calcium 8.8 Corrected Calcium 9.0 Magnesium 1.4 L Total Bilirubin 1.3 H AST 58 H ALT 43 Alkaline Phosphatase 149 H Troponin I 0.021 Total Protein 6.8 Albumin 3.8 Globulin 3.0 Albumin/Globulin Ratio 1.3 Ur Collection Type Clean Catch Urine Color Lt-[place] A Urine Clarity Turbid A Urine pH 6.0 Ur Specific [place] 1.020 Urine Protein 2+ A Urine Glucose (UA) Negative Urine Ketones Trace Urine Blood 3+ A Urine Nitrite Negative Urine Bilirubin Negative Urine Urobilinogen (Auto) Negative Ur Leukocyte Esterase Positive Urine RBC 3479 H Urine WBC 49 H Ur Squamous Epith Cells 8 H Urine Bacteria 3+ A Urine Opiates Screen Negative Urine Fentanyl Screen Negative Ur Barbiturates Screen Negative U Amphetamin/Meth Scrn Negative U Benzodiazepines Scrn Negative U Cocaine Metab Screen Negative U Marijuana (THC) Screen Negative Assessment & Plan Assessment and plan (1) Stroke-like symptom: Status: Acute Assessment and plan: MRI brain confirmed acute infarction. His right hemiparesis has gotten worse since baseline. Patient will benefit from inpatient rehab. Continue with aspirin with statin (2) Diabetes: Status: Chronic Assessment and plan: check fingerstick glucose before meals and at bedtime follow sliding scale insulin per protocol (3) Hypertension: Status: Acute Assessment and plan: Continue close blood pressure management (4) UTI (urinary tract infection): Status: Acute Assessment and plan: Continue with antibiotics
[2025-03-14] VITALS (8 sets, daily range): BP systolic 92–115; BP diastolic 59–74; PULSE 50–69; RESP 14–21; TEMP 36.2–36.7; O2SAT 95–98; BMI 15.0
[2025-03-14 06:05] LABS: Basophils # (Auto) 0.1 Thou/mm3 (0.0-0.2); Basophils % (Auto) 0 % (0-2.5); Eosinophils # (Auto) 0.3 Thou/mm3 (0.0-0.5); Eosinophils % (Auto) 1 % (0-10); Hematocrit 31.1 % (41.0-53.0); Hemoglobin 10.8 g/dL (13.5-16.0); Immature Granulocytes % (Auto) 3 % (0-0); Immature Granulocytes Auto 0.67 Thou/mm3 (0.00-0.00); Lymphocytes # (Auto) 0.9 Thou/mm3 (1.0-4.8); Lymphocytes % (Auto) 4 % (10-50); Mean Corpuscular HGB Conc 34.7 g/dl (31.0-37.0); Mean Corpuscular Hemoglobin 31.1 pg (25.0-35.0); Mean Corpuscular Volume 90 fL (80-100); Monocytes # (Auto) 1.3 Thou/mm3 (0.0-0.8); Monocytes % (Auto) 6 % (0-12); Neutrophils # (Auto) 18.1 Thou/mm3 (1.8-7.7); Neutrophils % (Auto) 85 % (37-80); Nucleated Red Blood Cell % 0 /100 WBC (0); Platelet Count 121 Thou/mm3 (140-440); RDW Standard Deviation 47.4 fL (35.1-43.9); Red Blood Count 3.47 Miln/mm3 (4.50-5.90); White Blood Count 21.2 Thou/mm3 (3.8-10.6)
[2025-03-14 06:29] LABS: Alanine Aminotransferase 35 U/L (10-49); Albumin, Serum 3.3 gm/dL (3.4-4.8); Albumin/Globulin Ratio 1.3 (1.2-2.2); Alkaline Phosphatase 116 U/L (46-116); Anion Gap 9 (7-16); Aspartate Amino Transferase 53 U/L (0-34); BUN/Creatinine Ratio 20 Ratio (12-20); Bilirubin,Total 0.8 mg/dL (0.3-1.2); Blood Urea Nitrogen 20 mg/dL (9-23); Calcium 8.2 mg/dL (8.3-10.6); Calcium (Corrected) 8.8 mg/dL (8.5-10.1); Cardiac Risk Estimate 2.1 RATIO (4.0-6.7); Chloride 105 mMol/L (98-107); Cholesterol 58 mg/dL (132-200); Estimated Creatinine Clearance 60.8 mL/min (>60); Globulin 2.6 gm/dL (2.3-3.5); Glucose 104 mg/dL (74-106); HDL Cholesterol 27 mg/dL (40-60); LDL Cholesterol,Calculated 13 mg/dL (0-130); Magnesium 1.8 mg/dL (1.6-2.6); Osmolality,Calculated 280 (275-295); Phosphorous 3.9 mg/dL (2.4-5.1); Potassium 4.3 mMol/L (3.4-5.1); Sodium 139 mMol/L (136-145); Thyroid Stimulating Hormone 0.77 uIU/mL (0.55-4.78); Total Protein 5.9 gm/dL (5.7-8.2); Triglycerides 90 mg/dL (30-150); eGFR > 60 See Note
[2025-03-14 06:46] LABS: Glucose Estimated Average 108 mg/dL (80-131); Hemoglobin A1C 5.4 % Hgb (4.8-6.0)
[2025-03-14] MEDS: cefTRIAXone/D5w 1gm IV premix 1 GM/50 ML BAG IV (09:30)
[2025-03-14] MEDS: SENNA TABLET 1 TAB PO (09:31)
[2025-03-14] MEDS: ASPIRIN EC 81 MG TABEC PO (09:31)
[2025-03-14] MEDS: Magnesium Sulfate 2 GM Ivpb 2 GM/50 ML BAG IV (09:31)
[2025-03-14] MEDS: PANTOPRAZOLE INJ 40 MG VIAL IVP (09:31)
[2025-03-14] MEDS: SODIUM CHLORIDE 0.9% 1000 ML 1,000 ML 75 ML IV ×2 (09:39→23:38)
--- NOTE | 2025-03-14 10:28 | PC.SS ---
IT COMMUNICATIONS SPECIALIST conducted bedside contact with the patient conduct initial assessment and to discuss discharge planning.? Patient confirmed demographic information.? Patient resides alone at home. ?Patient is retired.? Patient utilizes a walker to assist with ambulation.? Patient does not utilize home oxygen.? Patient currently on 1L oxygen.? Patient describes the ability to complete ADL?s independently.? Patient identified sister, Renata Gonzalez ; as medical surrogate decision maker.? Patient?s PCP is Dr. Paul.? Patient?s lug loader is Dr. Zaldivar. ?Patient?s information technology security analyst is Dr. Begum.? Patient utilizes [facility] for medication services.? Patient confirms access to provisions and basic utilities.? If home health recommended preferred agency is [facility].? If oxygen is required no preferred vendor identified.? Plan is for the patient to return home at the time of discharge.? Family will provide transportation on behalf of the patient. ?No further discharge needs identified by the patient.? No further intervention required at this time, social scientist will be available to address any further concerns.? Next of Kin: Renata Carlos D/C Plan: Home
--- NOTE | 2025-03-14 10:44 | PC.PT ---
Patient is safe to ambulate to the bathroom and in the halls with 1 staff assist and a FWW for safety. RN made aware.
--- NOTE | 2025-03-14 13:29 | PC.SS ---
INDUSTRIAL REHABILITATION CONSULTANT confirmed with patient that d/c plan is to transition to SNF not to return home with home health. Preferred SNF is [facility].
--- NOTE | 2025-03-14 13:36 | PC.SS ---
SNF referral submitted on [facility]. Awaiting responses.
--- NOTE | 2025-03-14 14:42 | ESPR_ITS ---
Documentation for date of: 03/14/25 Subjective Subjective Interval history: Patient examined at bedside, no events overnight. He has no major complaints. States that he is feeling much better than yesterday. No new onset focal deficits, weakness is improving. MRI showed new infarct 5 mm of left basal ganglia. For enhanced neurology, recommend to hold Plavix and any other anticoagulant for his A-fib as he has a history of bleeding. Will continue atorvastatin and aspirin at this time. Holding Coreg in setting of his soft BP, urine output +510 cc past 24 hours, up trended WBC to 21 likely in setting of urinary infection. Continue IV ceftriaxone, urine cultures are pending. Encourage patient to use CPAP machine nightly. Continue to work with physical therapy, needs 3 night stay for placement into SNF. Exam Vital Signs Temp Pulse Resp BP Pulse Ox O2 Del Method O2 Flow Rate 97.6 F 65 14 106/67 95 Room Air 1 03/14/25 12:00 03/14/25 12:00 03/14/25 12:00 03/14/25 12:00 03/14/25 12:00 03/14/25 12:00 03/14/25 08:00 FiO2 2 03/13/25 16:37 Narrative Exam General: Elderly male, No acute distress, cooperative HEENT: NCAT, No JVD noted. Mucosa moist. Pupils are equal and reactive to light bilaterally Cardiovascular: Normal S1 and S2. Regular rate and rhythm. Respiratory: Lungs are clear to auscultation bilaterally. No wheezing or crackles heard. Abdomen: Soft, nontender, not distended, normal bowel sounds. Skin: Warm to touch, dry, no rashes noted Musculoskeletal: No gross injuries. Able to move all 4 extremities. No pitting edema Neuro: Alert and oriented x3. No focal neuro deficits. Strength 4 out of 5 upper and lower extremity, no facial drooping. Psych: Normal affect and mood Objective Labs 03/15/25 04:54 03/15/25 04:54 Labs: Laboratory Results - last 24 hr 03/14/25 04:40 WBC 21.2 H D RBC 3.47 L Hgb 10.8 L D Hct 31.1 L MCV 90 MCH 31.1 MCHC 34.7 RDW Std Deviation 47.4 H Plt Count 121 L D Neut % (Auto) 85 H Lymph % (Auto) 4 L [place] % (Auto) 6 Eos % (Auto) 1 Baso % (Auto) 0 Neut # (Auto) 18.1 H Lymph # (Auto) 0.9 L [place] # (Auto) 1.3 H Eos # (Auto) 0.3 Baso # (Auto) 0.1 Immature Gran # (Auto) 0.67 H Absolute Nucleated RBC 0.00 Immature Gran % 3 H Nucleated RBC % 0 Sodium 139 Potassium 4.3 Chloride 105 Carbon Dioxide 25.0 Anion Gap 9 BUN 20 Creatinine 1.0 Estim Creat Clear Calc 60.8 L eGFR > 60 BUN/Creatinine Ratio [address] Glu mg/dL 108 Hemoglobin A1c 5.4 Calculated Osmolality 280 Calcium 8.2 L Corrected Calcium 8.8 Phosphorus 3.9 Magnesium 1.8 Total Bilirubin 0.8 D AST 53 H ALT 35 Alkaline Phosphatase 116 D Total Protein 5.9 Albumin 3.3 L D Globulin 2.6 Albumin/Globulin Ratio 1.3 Triglycerides 90 Cholesterol 58 L LDL Cholesterol, Calc 13 HDL Cholesterol 27 L Cholesterol/HDL Ratio 2.1 L TSH 0.77 Quality Measures Quality Measures none Advance care planning discussed with:: patient Assessment & Plan Assessment Current Active Medications: Generic Name Dose Route Start Last Admin Trade Name Freq PRN Reason Stop Dose Admin Acetaminophen 650 mg 03/13/25 16:04 Acetaminophen 325 Mg Tablet PO 04/12/25 16:03 Q6H PRN PAIN 1-3 OR FEVER > 101 Aspirin 81 mg 03/14/25 09:00 03/14/25 09:31 Aspirin Ec 81 Mg Tabec PO 04/13/25 08:59 81 mg QDAY GAUDENCIO Administration Atorvastatin Calcium 80 mg 03/13/25 21:00 03/13/25 20:33 Atorvastatin Calcium 20 Mg Tablet PO 04/12/25 20:59 80 mg HS GAUDENCIO Administration Dextrose 25 ml 03/13/25 16:55 Dextrose 50%-Water Inj 50 Ml Syringe IV 04/12/25 16:54 Q15MIN PRN BG 50-70 responsive npo pt Dextrose 50 ml 03/13/25 16:55 Dextrose 50%-Water Inj 50 Ml Syringe IV 04/12/25 16:54 Q15MIN PRN BG <50 OR BG <70 & pt unresponsive Glucagon 1 mg 03/13/25 16:55 Glucagon Inj 1 Mg Vial IM Q15MIN PRN BG <70, and no IV access Sodium Chloride 1,000 mls @ 75 mls/hr 03/13/25 16:15 03/14/25 09:39 Ns IV 04/12/25 16:14 75 mls/hr .[id number] GAUDENCIO Administration Ceftriaxone Sodium/Dextrose 1 gm in 50 mls @ 100 mls/hr 03/14/25 09:00 03/14/25 09:30 Rocephin/D5w 1gm Iv Premix IV 03/21/25 08:59 100 mls/hr QDAY GAUDENCIO Administration Insulin Human Lispro 0 unit 03/13/25 17:00 03/14/25 12:22 Insulin Lispro (Admelog) 1 Unit/0.01 Ml Unit SC 04/12/25 16:59 Not Given AC GAUDENCIO Protocol Lactulose 10 gm 03/15/25 09:00 Lactulose Syrup 20 Gm/30 Ml Udc PO 04/14/25 08:59 DAILY GAUDENCIO Protocol Ondansetron HCl 4 mg 03/13/25 12:07 Ondansetron Inj 2 Mg/Ml Inj 2 Ml IVP 04/12/25 12:06 Q4HR PRN NAUSEA OR VOMITING Pantoprazole Sodium 40 mg 03/15/25 09:00 Pantoprazole 40 Mg Tablet PO 04/14/25 08:59 QDAY GAUDENCIO Protocol Plan 79 y/o M with PMHx of Hypertension, Diabetes, previous CVA (2020), urinary incontinence, hx of chronic UTIs, prostate surgery due to severe BPH, atrial fibrillation, SOLITARIO presenting to ED today with chief complaint of weakness. This morning patient was using the bathroom and sitting on the toilet for a couple hours as he was unable to get up. Stroke alert called while in the ED. Teleneuro was consulted and recommended to admit patient for further workup of stroke. #Right-sided weakness 2/2 acute CVA #Previous CVA Likely secondary to TIA as the deficits have resolved. Physical exam at bedside shows strength 4/5 and proper movement of right side extremities. No slurred speech, facial symmetry. Last well-known around 7 AM this morning as he was using the bathroom patient was unable to get up from the toilet. Follows with Dr. Aquino outpatient since his last stroke. Teleneuro was consulted--NIHSS score 1, not a candidate for thrombolysis as LKW outside window. He received loading dose aspirin while in ED. CT head negative for acute hemorrhage, CTA head neck negative for LVO or stenoses, EKG shows A-fib rate 75. MRI showed new infarct 5 mm of left basal ganglia. ?Dr. Aquino was consulted appreciate recommendations--continue aspirin 81 mg and atorvastatin 80 mg daily. Holding blood thinners Plavix and anticoagulants as he has a history of high risk of bleeding. ?continue aspirin 81 mg daily ? Echo with bubble study pending ?Physical therapy/speech pathology referral pending ? Head of bed elevation 30 degrees ? 10 mg IV labetalol every 4 hours as needed if BP 220/120 -atorvastatin 80 mg p.o. daily #Complicated UTI #BPH Patient has history of severe BPH that has been treated with surgery. There is also history of urinary retention which causes patient to become altered. UA positive for leukocyte esterase, 50 WBC, 3+ bacteria. ? Urine culture pending ? insert velásquez cath -monitor INOs - Ceftriaxone 1 g daily #Hypertension #Atrial fibrillation, rate controlled Patient follows with cardiology Dr. Cordova. Last appointment was about 1 year ago. Appears to be rate controlled Echo 09/05/24--EF 50-55%, RA severely dilated. EKG shows A-fib rate 75. troponins negative, CHADsVASc score 6 points but not on any DOAC due to hx of bleeding. HAs bled 4 points (high risk bleeding) Educated on risks of not being started on any blood thinners or anticoagulants. He expresses understanding and also requesting not to be resumed on any agents. -continue to monitor electolytes keeping potassium >4.0 and Mg >2.0 -Clopidogrel 75 mg daily (held) ? Coreg 6.25 mg BID (holding due to soft BP) #Non-insulin dependent type 2 diabetes, well-controlled A1c 5.8 from 11/13. Glucose on admission 88. Patient takes metformin 1000 mg BID, Januvia 100 mg daily at home. A1c 5.4 on this admission -Held home medications -Bedside blood glucose checks ACHS -Insulin lispro sliding scale -Carb consistent low diet #SOLITARIO Was diagnosed with obstructive sleep apnea 10 years ago and does not use machine at home. ? Patient advised to follow-up outpatient for repeat sleep study ? CPAP at bedtime during admission Health maintenance: Dispo: tele for CVA FEN: low carb DVT prophylaxis: SCD CODE STATUS: Full code The patient's management plan was discussed with my attending physician Dr. Valverde. Marily Gonzalez, PGY-1 Attending Provider Attestation/Addendum I have examined the patient, reviewed labs and imaging findings, discussed the case with the resident(s), and reviewed entered orders. I agree with the plan of care as outlined in this note, with these additional summaries/recommendations: After examination of the patient and review of the clinical data, I feel that this patient needs admission to the hospital for further treatment and evaluation. 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 Patient seen at bedside. No acute overnight events. Patient completed MRI brain which revealed a 5 mm acute infract in the left basal ganglia. Patient diagnosed with acute CVA. Continue aspirin & statin. Echocardiogram pending, follow-up results when available. Continue to control vascular risk factors. Pending physical therapy. Urinalysis indicative of urinary tract infection. Urine culture pending results and continue IV abx. Place Velásquez catheter in place out of concern for urinary retention. Continue insulin sliding scale and basal insulin for history of diabetes mellitus type 2. Target blood sugar of 140 and 180 while hospitalized. Repeat level in AM. Patient and daughter updated on the plan and in agreement. All questions answered to satisfaction. Please see residents note for additional details and management. Dr. Abram MD
--- NOTE | 2025-03-14 16:04 | ECHO_ITS ---
Transthoracic Echo Report Ht (in): 70 Wt (lb): 192 Exam Location: Echo Lab Status: Inpatient Air Pollution Analyst: Sunshine Lima Indications: Procedure Performed: BP: 92 / 59 HR: 56 Technical Quality: Technically Difficult Due To Body Habitus MEASUREMENTS (Male / Female) Normal Values 2D ECHO LV Diastolic Diameter PLAX 5.2 cm 4.2 - 5.9 / 3.9 - 5.3 cm LV Systolic Diameter PLAX 3.8 cm IVS Diastolic Thickness 1.0 cm 0.6 - 1.0 / 0.6 - 0.9 cm LVPW Diastolic Thickness 1.0 cm 0.6 - 1.0 / 0.6 - 0.9 cm LV Relative Wall Thickness 0.4 LVOT Diameter 1.8 cm DOPPLER AV Peak Velocity 90.3 cm/s AV Peak Gradient 3.3 mmHg LVOT Peak Velocity 78.6 cm/s LVOT Peak Gradient 2.5 mmHg AV Area Cont Eq pk 2.2 cm? MV Area PHT 2.7 cm? Mitral E Point Velocity 88.8 cm/s Mitral A Point Velocity 19.4 cm/s Mitral E to A Ratio 4.6 LV E' Lateral Velocity 7.8 cm/s Mitral E to LV E' Lateral Ratio 11.3 LV E' Septal Velocity 7.0 cm/s Mitral E to LV E' Septal Ratio 12.8 TR Peak Velocity 192.5 cm/s TR Peak Gradient 14.8 mmHg PV Peak Velocity 69.8 cm/s PV Peak Gradient 2.0 mmHg FINDINGS Left Ventricle Normal left ventricular size, wall thickness, systolic function with no obvious regional wall motion abnormalities. Unable to determine diastology due to Afib. The ejection fraction is visually estimated at 55 %. Right Ventricle The right ventricle is severly enlarged. RVSP 14mmHg. RAP 10mmHg. Left Atrium The left atrium is normal by two-dimensional, color flow and Doppler imaging with no structural abnormalities, no thrombus formation present. Right Atrium The right atrium is moderately enlargedt. Atrial Septum The interatrial septum appears normal with no evidence of a shunt. Agitated saline bubble study negative for PFO/ASD. Aorta The aorta is normal by two-dimensional, color flow and Doppler interrogation. Mitral Valve The mitral valve annulus as well as leaflets are mildly calcified without stenosis. There is trace mitral regurgitation. Aortic Valve The aortic valve is trileaflet and mildly calcified without stenosis. No aortic regurgitation. Tricuspid Valve The tricuspid valve is normal by two-dimensional, color flow and Doppler interrogation. There is mild tricuspid regurgitation. Pulmonic Valve The pulmonic valve is not well visualized. There is no significant pulmonic valve regurgitation. Vessels The pulmonary artery appears normal. The inferior vena cava pulmonary and hepatic veins appear normal. Pericardium The pericardium is normal by two-dimensional imaging. There is no significant pericardial effusion. CONCLUSIONS Indications: R/O Stroke Normal LV. Estimated EF 55%. Severe RVE. RVSP 14mmHg. RAP 10mmHg. Moderate MICHAEL. Mild MAC. Trace MR. Mild Aortic Calcification. Mild TR. No Pericardial Effusion. Ysabel Cannon (Electronically Signed) Final Date: 14 March 2025 10:42
--- NOTE | 2025-03-14 17:05 | PC.SS ---
PASSR completed. Meets Level I criteria. No follow up required.
[2025-03-14] MEDS: ATORVASTATIN CALCIUM 20 MG TABLET 80 MG PO (20:50)
--- NOTE | 2025-03-14 23:26 | ESPR_ITS ---
Documentation for date of: 03/14/25 Subjective Subjective Interval history: Mr. Mann was seen in telemetry with family at the bedside. walked in the hallway with minimal assistance, tolerating oral diet well. Exam - Neurology Vital Signs Temp Pulse Resp BP Pulse Ox O2 Del Method O2 Flow Rate 97.4 F 50 L 21 H 115/72 96 Room Air 1 03/14/25 20:00 03/14/25 20:00 03/14/25 20:00 03/14/25 20:00 03/14/25 20:00 03/14/25 20:00 03/14/25 08:00 FiO2 2 03/13/25 16:37 Narrative Exam GENERAL APPEARANCE: Well hydrated, well-nourished in no acute distress. HEENT: Normocephalic, atraumatic, extraocular movements intact. Pupils: Equal reacting to light and accommodation NECK: Supple, no JVD or bruits. CARDIOVASULAR: Heart: S1, S2 heard, irregular without S3-S4 or murmur no rubs or gallops. LUNGS/CHEST: Clear to auscultation bilaterally. No rails, rhonchi, or wheezing. Normal inspection. ABDOMEN: Soft, nontender, with normal bowel sounds. No pulsatile masses. No rebound, rigidity, or guarding. Normal inspection and palpation. EXTREMITIES: Normal inspection and palpation. No edema, clubbing or cyanosis. SKIN: Warm and dry without rashes. Normal inspection. MUSCULOSKELETAL: No cervical, thoracic, lumbar or midline bony tenderness. Normal inspection. NEURO: Alert, awake and oriented x3. Cranial nerves: II through XII grossly intact. Speech and language: Normal with no dysarthria or dysphasia. Motor system: Tone and bulk: Normal: Strength: right hemiparesis: residual, No pronator drift noted. Deep tendon reflexes: 2+ bilaterally symmetrical. Plantar reflex: Downgoing bilaterally. Sensory system: Intact to all modalities of sensation bilaterally. Coordination: Intact to [id number] and [id number] test bilaterally. No ataxia, no dysmetria, or dysdiadochokinesia noted. No intention tremors noted. Gait: not tested. No signs of meningeal irritation noted. PSYCHIATRIC: Normal mood and affect. Objective Labs 03/14/25 04:40 03/14/25 04:40 Labs: Laboratory Results - last 24 hr 03/14/25 04:40 WBC 21.2 H D RBC 3.47 L Hgb 10.8 L D Hct 31.1 L MCV 90 MCH 31.1 MCHC 34.7 RDW Std Deviation 47.4 H Plt Count 121 L D Neut % (Auto) 85 H Lymph % (Auto) 4 L [place] % (Auto) 6 Eos % (Auto) 1 Baso % (Auto) 0 Neut # (Auto) 18.1 H Lymph # (Auto) 0.9 L [place] # (Auto) 1.3 H Eos # (Auto) 0.3 Baso # (Auto) 0.1 Immature Gran # (Auto) 0.67 H Absolute Nucleated RBC 0.00 Immature Gran % 3 H Nucleated RBC % 0 Sodium 139 Potassium 4.3 Chloride 105 Carbon Dioxide 25.0 Anion Gap 9 BUN 20 Creatinine 1.0 Estim Creat Clear Calc 60.8 L eGFR > 60 BUN/Creatinine Ratio [address] Glu mg/dL 108 Hemoglobin A1c 5.4 Calculated Osmolality 280 Calcium 8.2 L Corrected Calcium 8.8 Phosphorus 3.9 Magnesium 1.8 Total Bilirubin 0.8 D AST 53 H ALT 35 Alkaline Phosphatase 116 D Total Protein 5.9 Albumin 3.3 L D Globulin 2.6 Albumin/Globulin Ratio 1.3 Triglycerides 90 Cholesterol 58 L LDL Cholesterol, Calc 13 HDL Cholesterol 27 L Cholesterol/HDL Ratio 2.1 L TSH 0.77 Assessment & Plan Assessment and plan (1) Stroke-like symptom: Status: Acute Assessment and plan: MRI brain confirmed acute infarction. His right hemiparesis has gotten worse since baseline. Patient will benefit from inpatient rehab, considering [place] [facility] acute. Continue with aspirin with statin as he had GI bleeding and hematuria in the past, not safe to add plavix or Eliquis for additional prophylaxis. (2) Diabetes: Status: Chronic Assessment and plan: check fingerstick glucose before meals and at bedtime follow sliding scale insulin per protocol (3) Hypertension: Status: Acute Assessment and plan: Continue close blood pressure management (4) UTI (urinary tract infection): Status: Acute Assessment and plan: Continue with antibiotics
[2025-03-15] VITALS (8 sets, daily range): BP systolic 103–151; BP diastolic 68–97; PULSE 53–94; RESP 16–96; TEMP 36.1–37.2; O2SAT 95–98; BMI 28.2
[2025-03-15 05:43] LABS: Basophils % (Auto) 0 % (0-2.5); Eosinophils # (Auto) 0.3 Thou/mm3 (0.0-0.5); Eosinophils % (Auto) 2 % (0-10); Hematocrit 31.1 % (41.0-53.0); Hemoglobin 10.6 g/dL (13.5-16.0); Immature Granulocytes % (Auto) 2 % (0-0); Immature Granulocytes Auto 0.22 Thou/mm3 (0.00-0.00); Lymphocytes % (Auto) 7 % (10-50); Mean Corpuscular HGB Conc 34.1 g/dl (31.0-37.0); Mean Corpuscular Hemoglobin 31.5 pg (25.0-35.0); Mean Corpuscular Volume 92 fL (80-100); Monocytes # (Auto) 0.7 Thou/mm3 (0.0-0.8); Monocytes % (Auto) 5 % (0-12); Neutrophils # (Auto) 11.8 Thou/mm3 (1.8-7.7); Neutrophils % (Auto) 84 % (37-80); Nucleated Red Blood Cell % 0 /100 WBC (0); Platelet Count 126 Thou/mm3 (140-440); RDW Standard Deviation 48.7 fL (35.1-43.9); Red Blood Count 3.37 Miln/mm3 (4.50-5.90); White Blood Count 14.1 Thou/mm3 (3.8-10.6)
[2025-03-15 06:09] LABS: Alanine Aminotransferase 33 U/L (10-49); Albumin, Serum 3.2 gm/dL (3.4-4.8); Albumin/Globulin Ratio 1.3 (1.2-2.2); Alkaline Phosphatase 105 U/L (46-116); Anion Gap 8 (7-16); Aspartate Amino Transferase 54 U/L (0-34); BUN/Creatinine Ratio 29 Ratio (12-20); Bilirubin,Total 0.8 mg/dL (0.3-1.2); Blood Urea Nitrogen 20 mg/dL (9-23); Calcium 8.6 mg/dL (8.3-10.6); Calcium (Corrected) 9.2 mg/dL (8.5-10.1); Carbon Dioxide 26.4 mMol/L (20.0-31.0); Chloride 103 mMol/L (98-107); Creatinine (Component) 0.7 mg/dL (0.6-1.3); Estimated Creatinine Clearance 94.6 mL/min (>60); Globulin 2.4 gm/dL (2.3-3.5); Glucose 90 mg/dL (74-106); Magnesium 2.2 mg/dL (1.6-2.6); Osmolality,Calculated 276 (275-295); Phosphorous 2.6 mg/dL (2.4-5.1); Potassium 3.6 mMol/L (3.4-5.1); Sodium 137 mMol/L (136-145); Total Protein 5.6 gm/dL (5.7-8.2); eGFR > 60 See Note
[2025-03-15] MEDS: ASPIRIN EC 81 MG TABEC PO (08:53)
[2025-03-15] MEDS: LACTULOSE SYRUP 20 GM/30 ML UDC 10 GM PO (08:53)
[2025-03-15] MEDS: PANTOPRAZOLE 40 MG TABLET PO (08:53)
[2025-03-15] MEDS: cefTRIAXone/D5w 1gm IV premix 1 GM/50 ML BAG IV (08:53)
[2025-03-15] MEDS: POTASSIUM CHLORIDE 20 mEq TABCR 40 MEQ PO (08:57)
--- NOTE | 2025-03-15 09:17 | PD.RESPRO ---
Documentation for date of: 03/15/25 Subjective Subjective Interval history: Patient was seen and examined at bedside. No acute overnight events. Leukocytosis improved, rest of the labs including CMP unremarkable, electrolytes replaced as needed. Will continue with aspirin per neurology recommendation patient is high risk for any block/block, urine culture Klebsiella pneumonia sensitive to Rocephin, for now we will continue with Rocephin, will de-escalate tomorrow to p.o. medication. Patient will have a bladder training today, plan is to discontinue Faustin catheter. Patient will need 1 more inpatient tonight and plan to discharge tomorrow to [place]. Plan was discussed with the patient, all questions and concerns were addressed. Exam Vital Signs Temp Pulse Resp BP Pulse Ox O2 Del Method O2 Flow Rate 97.4 F 94 20 125/71 95 Room Air 1 03/15/25 08:00 03/15/25 08:00 03/15/25 08:00 03/15/25 08:00 03/15/25 08:00 03/15/25 08:00 03/14/25 08:00 FiO2 2 03/13/25 16:37 Narrative Exam GENERAL: no acute distress, AAO x3, well nourished. Laying comfortably in bed HEENT: Head AT/ NC. Mucous membranes moist. PERRL. NECK: Supple, no lymphadenopathy, no carotid bruits. CARDIOVASCULAR: RRR. Normal S1/S2, No m/r/g. No pitting edema of bilateral LEs. RESPIRATORY: CTAB. No wheezing, rhonchi, crackles. GASTROINTESTINAL: Abdomen soft, non tender no palpable masses. Bowel sounds present in all 4 quadrants. Faustin is in place MUSCULOSKELETAL:? No cyanosis or edema, no visible joint swelling. NEUROLOGICAL: CN II-XII grossly intact. No focal deficits. Sensation intact, symmetric. PSYCHIATRIC: Awake and alert, not agitated, normal mood and affect. INTEGUMENTARY: No obvious rashes, no jaundice, normal turgor. Objective Labs 03/16/25 05:58 03/15/25 04:54 Labs: Laboratory Results - last 24 hr 03/15/25 04:54 WBC 14.1 H D RBC 3.37 L Hgb 10.6 L Hct 31.1 L MCV 92 MCH 31.5 MCHC 34.1 RDW Std Deviation 48.7 H Plt Count 126 L Neut % (Auto) 84 H Lymph % (Auto) [address] [place] % (Auto) 5 Eos % (Auto) 2 Baso % (Auto) 0 Neut # (Auto) 11.8 H Lymph # (Auto) 1.0 [place] # (Auto) 0.7 Eos # (Auto) 0.3 Baso # (Auto) 0.0 Immature Gran # (Auto) 0.22 H Absolute Nucleated RBC 0.00 Immature Gran % 2 H Nucleated RBC % 0 Sodium 137 Potassium 3.6 D Chloride 103 Carbon Dioxide 26.4 Anion Gap 8 BUN 20 Creatinine 0.7 Estim Creat Clear Calc 94.6 eGFR > 60 BUN/Creatinine Ratio 29 H Glucose 90 Calculated Osmolality 276 Calcium 8.6 Corrected Calcium 9.2 Phosphorus 2.6 Magnesium 2.2 Total Bilirubin 0.8 AST 54 H ALT 33 Alkaline Phosphatase 105 Total Protein 5.6 L Albumin 3.2 L Globulin 2.4 Albumin/Globulin Ratio 1.3 Quality Measures Quality Measures none Advance care planning discussed with:: patient Assessment & Plan Assessment Current Active Medications: Generic Name Dose Route Start Last Admin Trade Name Freq PRN Reason Stop Dose Admin Acetaminophen 650 mg 03/13/25 16:04 Acetaminophen 325 Mg Tablet PO 04/12/25 16:03 Q6H PRN PAIN 1-3 OR FEVER > 101 Aspirin 81 mg 03/14/25 09:00 03/15/25 08:53 Aspirin Ec 81 Mg Tabec PO 04/13/25 08:59 81 mg QDAY GAUDENCIO Administration Atorvastatin Calcium 80 mg 03/13/25 21:00 03/14/25 20:50 Atorvastatin Calcium 20 Mg Tablet PO 04/12/25 20:59 80 mg HS GAUDENCIO Administration Dextrose 25 ml 03/13/25 16:55 Dextrose 50%-Water Inj 50 Ml Syringe IV 04/12/25 16:54 Q15MIN PRN BG 50-70 responsive npo pt Dextrose 50 ml 03/13/25 16:55 Dextrose 50%-Water Inj 50 Ml Syringe IV 04/12/25 16:54 Q15MIN PRN BG <50 OR BG <70 & pt unresponsive Glucagon 1 mg 03/13/25 16:55 Glucagon Inj 1 Mg Vial IM Q15MIN PRN BG <70, and no IV access Sodium Chloride 1,000 mls @ 75 mls/hr 03/13/25 16:15 03/14/25 23:38 Ns IV 04/12/25 16:14 75 mls/hr .[id number] GAUDENCIO Administration Ceftriaxone Sodium/Dextrose 1 gm in 50 mls @ 100 mls/hr 03/14/25 09:00 03/15/25 08:53 Rocephin/D5w 1gm Iv Premix IV 03/21/25 08:59 100 mls/hr QDAY GAUDENCIO Administration Insulin Human Lispro 0 unit 03/13/25 17:00 03/15/25 07:30 Insulin Lispro (Admelog) 1 Unit/0.01 Ml Unit SC 04/12/25 16:59 Not Given AC GAUDENCIO Protocol Lactulose 10 gm 03/15/25 09:00 03/15/25 08:53 Lactulose Syrup 20 Gm/30 Ml Udc PO 04/14/25 08:59 10 gm DAILY GAUDENCIO Administration Protocol Ondansetron HCl 4 mg 03/13/25 12:07 Ondansetron Inj 2 Mg/Ml Inj 2 Ml IVP 04/12/25 12:06 Q4HR PRN NAUSEA OR VOMITING Pantoprazole Sodium 40 mg 03/15/25 09:00 03/15/25 08:53 Pantoprazole 40 Mg Tablet PO 04/14/25 08:59 40 mg QDAY GAUDENCIO Administration Protocol Plan 79 y/o M with PMHx of Hypertension, Diabetes, previous CVA (2020), urinary incontinence, hx of chronic UTIs, prostate surgery due to severe BPH, atrial fibrillation, SOLITARIO presenting to ED today with chief complaint of weakness. This morning patient was using the bathroom and sitting on the toilet for a couple hours as he was unable to get up. Stroke alert called while in the ED. Teleneuro was consulted and recommended to admit patient for further workup of stroke. #Acute CVA #Right-sided weakness due to above #Previous CVA Presented with chief complaints of lower extremity weakness mainly on the right side, denied any slurred speech, facial asymmetry. Patient was out of the window for tPA He received loading dose aspirin while in ED. CT head negative for acute hemorrhage, CTA head neck negative for LVO or stenoses, EKG shows A-fib rate 75. MRI showed new infarct 5 mm of left basal ganglia. Echo with bubble study negative for PFO, estimated EF 55% Physical therapy recommended SNF placement for short-term rehabilitation ?Dr. Aquino was consulted appreciate recommendations--continue aspirin 81 mg and atorvastatin 80 mg daily. Holding blood thinners Plavix and anticoagulants as he has a history of high risk of bleeding. ?Head of bed elevation 30 degrees ?10 mg IV labetalol every 4 hours as needed if BP 220/120 ?Control risk factors such as hypertension and hyperglycemia # Klebsiella pneumonia UTI #BPH Patient has history of severe BPH that has been treated with surgery. There is also history of urinary retention which causes patient to become altered. UA positive for leukocyte esterase, 50 WBC, 3+ bacteria. Urine culture showed Klebsiella pneumonia Cultures are sensitive to ceftriaxone, continue IV, plan is to de-escalate to p.o. starting tomorrow -Bladder training, plan is to DC Faustin -monitor INOs #Hypertension #Atrial fibrillation, rate controlled Patient follows with cardiology Dr. Cordova. Last appointment was about 1 year ago. Appears to be rate controlled Echo 09/05/24--EF 50-55%, RA severely dilated. EKG shows A-fib rate 75. troponins negative, CHADsVASc score 6 points but not on any DOAC due to hx of bleeding. HAs bled 4 points (high risk bleeding) Educated on risks of not being started on any blood thinners or anticoagulants. He expresses understanding and also requesting not to be resumed on any agents. -continue to monitor electolytes keeping potassium >4.0 and Mg >2.0 -DC clopidogrel 75 mg daily ?Coreg 6.25 mg BID (holding due to soft BP) #Non-insulin dependent type 2 diabetes, well-controlled A1c 5.8 from 11/13. Glucose on admission 88. Patient takes metformin 1000 mg BID, Januvia 100 mg daily at home. A1c 5.4 on this admission -Held home medications -Bedside blood glucose checks ACHS -Insulin lispro sliding scale -Carb consistent low diet #SOLITARIO Was diagnosed with obstructive sleep apnea 10 years ago and does not use machine at home. ? Patient advised to follow-up outpatient for repeat sleep study ? CPAP at bedtime during admission Disposition: Telemetry DVT prophylaxis: SCDs GI prophylaxis: PPI Diet: Low carb Lines: PIV CODE STATUS:Full code Patient care was discussed with attending physician Dr. Abram Grady MD PGY-2 Attending Provider Attestation/Addendum I have examined the patient, reviewed labs and imaging findings, discussed the case with the resident(s), and reviewed entered orders. 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 Patient seen at bedside. No acute overnight events. Patient reports he did not sleep well last night although no other complaints. Discussed that we will do bladder training today in anticipation of Faustin catheter removal. Patient is medically cleared for discharge and currently pending placement. Patient completed MRI brain which revealed a 5 mm acute infract in the left basal ganglia. Patient diagnosed with acute CVA. Continue aspirin & statin. Not a candidate for DAPT given prior bleeding episodes. Echocardiogram showed ejection fraction of 55% with no PFO. Continue to control vascular risk factors. Urinalysis indicative of urinary tract infection. Urine culture grew Klebsiella oxytoca and continue IV abx. Continue insulin sliding scale and basal insulin for history of diabetes mellitus type 2. Target blood sugar of 140 and 180 while hospitalized. Repeat level in AM. Patient and daughter updated on the plan and in agreement. All questions answered to satisfaction. Please see residents note for additional details and management. Dr. Abram MD
--- NOTE | 2025-03-15 10:34 | CHAP ---
Patient was sleeping but the Spiritual Care Volunteer prayed (silently) for them. (Volunteer was in the hospital from 09:30-10:34).
--- NOTE | 2025-03-15 14:37 | PC.SS ---
Addendum entered by ANGIE Brown 03/15/25 14:40: Rounding note: patient is pending third inpatient midnight before d/c to [facility] -SNF. Original Note: SS follow up: Evi at [facility] confirms they can accept the patient tomorrow. Facility booked via [employer].
[2025-03-15] MEDS: ATORVASTATIN CALCIUM 20 MG TABLET 80 MG PO (20:42)
--- NOTE | 2025-03-15 22:55 | ESPR_ITS ---
Documentation for date of: 03/15/25 Subjective Subjective Interval history: Mr. Mann was seen in telemetry with family at the bedside. no new symptoms reported, continues to have right hemiparesis, but significantly improving to the point of walking with walker. Exam - Neurology Vital Signs Temp Pulse Resp BP Pulse Ox O2 Del Method O2 Flow Rate 97.4 F 60 18 151/81 H 96 Room Air 1 03/15/25 20:00 03/15/25 22:15 03/15/25 22:15 03/15/25 20:00 03/15/25 20:00 03/15/25 20:00 03/14/25 08:00 FiO2 2 03/13/25 16:37 Narrative Exam GENERAL APPEARANCE: Well hydrated, well-nourished in no acute distress. HEENT: Normocephalic, atraumatic, extraocular movements intact. Pupils: Equal reacting to light and accommodation NECK: Supple, no JVD or bruits. CARDIOVASULAR: Heart: S1, S2 heard, irregular without S3-S4 or murmur no rubs or gallops. LUNGS/CHEST: Clear to auscultation bilaterally. No rails, rhonchi, or wheezing. Normal inspection. ABDOMEN: Soft, nontender, with normal bowel sounds. No pulsatile masses. No rebound, rigidity, or guarding. Normal inspection and palpation. EXTREMITIES: Normal inspection and palpation. No edema, clubbing or cyanosis. SKIN: Warm and dry without rashes. Normal inspection. MUSCULOSKELETAL: No cervical, thoracic, lumbar or midline bony tenderness. Normal inspection. NEURO: Alert, awake and oriented x3. Cranial nerves: II through XII grossly intact. Speech and language: Normal with no dysarthria or dysphasia. Motor system: Tone and bulk: Normal: Strength: right hemiparesis: residual, No pronator drift noted. Deep tendon reflexes: 2+ bilaterally symmetrical. Plantar reflex: Downgoing bilaterally. Sensory system: Intact to all modalities of sensation bilaterally. Coordination: Intact to niakgr-nsoa-c and teed-oxjd-kftk test bilaterally. No ataxia, no dysmetria, or dysdiadochokinesia noted. No intention tremors noted. Gait: not tested. No signs of meningeal irritation noted. PSYCHIATRIC: Normal mood and affect. Objective Labs 03/15/25 04:54 03/15/25 04:54 Labs: Laboratory Results - last 24 hr 06/27/25 04:54 WBC 14.1 H D RBC 3.37 L Hgb 10.6 L Hct 31.1 L MCV 92 MCH 31.5 MCHC 34.1 RDW Std Deviation 48.7 H Plt Count 126 L Neut % (Auto) 84 H Lymph % (Auto) 7 L [place] % (Auto) 5 Eos % (Auto) 2 Baso % (Auto) 0 Neut # (Auto) 11.8 H Lymph # (Auto) 1.0 [place] # (Auto) 0.7 Eos # (Auto) 0.3 Baso # (Auto) 0.0 Immature Gran # (Auto) 0.22 H Absolute Nucleated RBC 0.00 Immature Gran % 2 H Nucleated RBC % 0 Sodium 137 Potassium 3.6 D Chloride 103 Carbon Dioxide 26.4 Anion Gap 8 BUN 20 Creatinine 0.7 Estim Creat Clear Calc 94.6 eGFR > 60 BUN/Creatinine Ratio 29 H Glucose 90 Calculated Osmolality 276 Calcium 8.6 Corrected Calcium 9.2 Phosphorus 2.6 Magnesium 2.2 Total Bilirubin 0.8 AST 54 H ALT 33 Alkaline Phosphatase 105 Total Protein 5.6 L Albumin 3.2 L Globulin 2.4 Albumin/Globulin Ratio 1.3 Assessment & Plan Assessment and plan (1) Stroke-like symptom: Status: Acute Assessment and plan: MRI brain confirmed acute infarction. His right hemiparesis has gotten worse since baseline. Patient will benefit from inpatient rehab, considering [facility]. Continue with aspirin with statin as he had GI bleeding and hematuria in the past, not safe to add plavix or Eliquis for additional prophylaxis. (2) Diabetes: Status: Chronic Assessment and plan: check fingerstick glucose before meals and at bedtime follow sliding scale insulin per protocol (3) Hypertension: Status: Acute Assessment and plan: Continue close blood pressure management (4) UTI (urinary tract infection): Status: Acute Assessment and plan: Continue with antibiotics
[2025-03-16] VITALS: BP 130/76; PULSE 55; PULSE 64; RESP 20; TEMP 36.2; O2SAT 96
[2025-03-16 04:00] VITALS: BP 146/85; PULSE 61; RESP 20; TEMP 36.3; O2SAT 93
[2025-03-16 06:00] VITALS: BMI 27.2
[2025-03-16 06:30] VITALS: PULSE 79; RESP 18; RESP 97
[2025-03-16 07:16] LABS: Basophils % (Auto) 0 % (0-2.5); Eosinophils # (Auto) 0.2 Thou/mm3 (0.0-0.5); Eosinophils % (Auto) 2 % (0-10); Hematocrit 34.6 % (41.0-53.0); Hemoglobin 11.6 g/dL (13.5-16.0); Immature Granulocytes % (Auto) 1 % (0-0); Immature Granulocytes Auto 0.04 Thou/mm3 (0.00-0.00); Lymphocytes # (Auto) 1.1 Thou/mm3 (1.0-4.8); Lymphocytes % (Auto) 13 % (10-50); Mean Corpuscular HGB Conc 33.5 g/dl (31.0-37.0); Mean Corpuscular Hemoglobin 31.4 pg (25.0-35.0); Mean Corpuscular Volume 94 fL (80-100); Monocytes # (Auto) 0.5 Thou/mm3 (0.0-0.8); Monocytes % (Auto) 6 % (0-12); Neutrophils # (Auto) 6.5 Thou/mm3 (1.8-7.7); Neutrophils % (Auto) 78 % (37-80); Nucleated Red Blood Cell % 0 /100 WBC (0); Platelet Count 143 Thou/mm3 (140-440); RDW Standard Deviation 48.9 fL (35.1-43.9); White Blood Count 8.3 Thou/mm3 (3.8-10.6)
[2025-03-16 08:00] VITALS: BP 134/72; PULSE 61; PULSE 70; RESP 18; TEMP 36.2; O2SAT 96
[2025-03-16 08:01] LABS: Alanine Aminotransferase 52 U/L (10-49); Albumin, Serum 3.4 gm/dL (3.4-4.8); Albumin/Globulin Ratio 1.4 (1.2-2.2); Alkaline Phosphatase 150 U/L (46-116); Anion Gap 9 (7-16); Aspartate Amino Transferase 79 U/L (0-34); BUN/Creatinine Ratio 20 Ratio (12-20); Bilirubin,Total 0.9 mg/dL (0.3-1.2); Blood Urea Nitrogen 12 mg/dL (9-23); Calcium (Corrected) 9.5 mg/dL (8.5-10.1); Carbon Dioxide 26.3 mMol/L (20.0-31.0); Chloride 104 mMol/L (98-107); Creatinine (Component) 0.6 mg/dL (0.6-1.3); Estimated Creatinine Clearance 101.4 mL/min (>60); Globulin 2.5 gm/dL (2.3-3.5); Glucose 95 mg/dL (74-106); Magnesium 1.7 mg/dL (1.6-2.6); Osmolality,Calculated 277 (275-295); Phosphorous 3.1 mg/dL (2.4-5.1); Sodium 139 mMol/L (136-145); Total Protein 5.9 gm/dL (5.7-8.2); eGFR > 60 See Note
[2025-03-16] MEDS: PANTOPRAZOLE 40 MG TABLET PO (09:14)
[2025-03-16] MEDS: LACTULOSE SYRUP 20 GM/30 ML UDC 10 GM PO (09:15)
[2025-03-16] MEDS: ASPIRIN EC 81 MG TABEC PO (09:15)
[2025-03-16] MEDS: cefTRIAXone/D5w 1gm IV premix 1 GM/50 ML BAG IV (09:17)
--- NOTE | 2025-03-16 10:00 | PC.SS ---
Addendum entered by Cynthia Olsen 03/16/25 12:42: [facility]patch called and stated due to high system levels, they will p/u the pt at 1400 rather than 1300. RN is aware Addendum entered by Cynthia Olsen 03/16/25 11:11: TRANSPORTATION SET FOR P/U ETA 1300 TO [facility]. RN IS AWARE. Original Note: Per rounding today, pt is ready for d/c, three midnight stay is completed. ASW attempted to contact Evi from [facility] and confirmed the d/c plan with Evi. Evi requested the d/c orders and PASSR letter. ASW sent the PASSR letter via [facility] and will send the d/c order via fax and [employer] as well. ASW will arange transporation.
[2025-03-16] MEDS: INSULIN LISPRO (AdmeLOG) 1 UNIT/0.01 ML UNIT SC (11:56)
[2025-03-16 12:00] VITALS: BP 128/77; PULSE 58; PULSE 77; RESP 19; TEMP 36.6; O2SAT 98
--- NOTE | 2025-03-16 12:14 | PC.NURSE ---
Report called to SNF nurse Keyur at [facility], discharge packet being sent with pt on transfer.
--- NOTE | 2025-03-16 14:28 | PD.RESDS ---
Planned Discharge Date 03/16/25 DS: Providers Provider Date of admission: 03/13/25 16:04 Primary care physician: Sanjay Paul MD Admitting Provider: Maxi Valverde MD Attending Provider on Admission: Maxi Valverde MD Consults: 03/13/25 12:08 Consult to Neurology / Tele-Neurology Routine Comment: Consulting Provider: [facility] 03/13/25 16:13 Consult to Neurology / Tele-Neurology Stat Comment: Consulting Provider: Adam Aquino 03/13/25 16:15 Referral Physical Therapy Stat Comment: Physician Instructions: Referral Speech Therapy Stat Comment: Attending Provider on DC: Maxi Valverde MD Discharging Provider: Maxi Valverde MD DS: Diagnosis Problem List Completed Was Problem List Reviewed/Reconciled?: Yes Hospital Course Hospital Course Hospital course: Reason for hospitalization: CVA workup 79 y/o M with PMHx of Hypertension, Diabetes, previous CVA (2020), urinary incontinence, hx of chronic UTIs, prostate surgery due to severe BPH, atrial fibrillation presenting to [facility] ED 03/13/25 with chief complaint of weakness. He was unable to get up from the toilet for couple hours until family members came to check on him. Patient typically walks with assistance of a device and has no issues completing ADLs. He follows with Dr. Aquino outpatient with last appointment approximately 1 month ago. Patient was admitted for CVA workup. For atrial fibrillation, patient is not on any anticoagulants due to history of severe GI bleed. Has been on Plavix for previous CVA. BP was soft, mild leukocytosis, UA positive for UTI. CT head negative for acute hemorrhage, CTA head neck negative for LVO or stenoses, EKG showed A-fib rate 75. Telemetry neuro was consulted and NIHSS score was 1, not a candidate for thrombolytic due to LKW outside window. MRI did show new infarct 5 mm of left basal ganglia. Neurology Dr. Aquino was consulted. Recommended to hold Plavix and continue on the aspirin with atorvastatin. Patient was encouraged to use CPAP nightly as well due to history of SOLITARIO and does have noncompliance with the machine. Physical therapy evaluation recommended patient to be placed in nursing facility. However he was requiring 3 midnight stay. During hospitalization patient remained stable with no new focal neurodeficits. He remained alert and oriented x 3 with his weakness improving. Echocardiogram showed ejection fraction of 55% with no PFO. Urine culture grew Klebsiella oxytoca. He was transitioned from IV formulation to p.o. nitrofurantoin to be completed in 4 more days. Due to history of urinary retention in the past, velásquez cath was placed to rule out any concern for retention. After bladder training, velásquez was removed. Patient is now in stable condition and ready for discharge. Recommendations were given as below. Discharge Recommendations: Stop taking Plavix due to your high risk of bleeding. Continue taking atorvastatin 80 mg daily and aspirin 81 mg daily as treatment for stroke. Complete antibiotic course as prescribed for treatment of UTI. Follow up with neurology in 1-2 weeks. Follow up with PCP in 1-2 weeks. Hospital Diagnoses: #Right sided weakness 2/2 Acute CVA #Previous CVA # Klebsiella oxytoca UTI #BPH #Hypertension #Atrial fibrillation, rate controlled #Non-insulin dependent type 2 diabetes, well-controlled #SOLITARIO The patient's management plan was discussed with my attending physician Dr. Valverde. Marily Gonzalez MD, PGY-1 Time Spent with Patient Time attestation: Total time spent providing and/or coordinating discharge services: Time spent: Greater than 30 minutes Quality: Stroke Pt Provided Written Stroke Discharge Instructions: Yes Exam Vital Signs Temp Pulse Resp BP Pulse Ox O2 Del Method O2 Flow Rate 97.1 F 61 18 134/72 H 96 Room Air 1 03/16/25 08:00 03/16/25 08:00 03/16/25 08:00 03/16/25 08:00 03/16/25 08:00 03/16/25 08:00 03/16/25 00:00 FiO2 2 03/16/25 00:00 Narrative Exam General: Elderly male, No acute distress, cooperative HEENT: NCAT, No JVD noted. Mucosa moist. Pupils are equal and reactive to light bilaterally Cardiovascular: Normal S1 and S2. Regular rate and rhythm. Respiratory: Lungs are clear to auscultation bilaterally. No wheezing or crackles heard. Abdomen: Soft, nontender, not distended, normal bowel sounds. Skin: Warm to touch, dry, no rashes noted Musculoskeletal: No gross injuries. Able to move all 4 extremities. No pitting edema Neuro: Alert and oriented x3. No focal neuro deficits. Strength 4 out of 5 upper and lower extremity, no facial drooping. Psych: Normal affect and mood Discharge Plan Plan Patient Disposition: Xfer Skilled Nsg Fac (SNF) Disposition Comment: for PT Patient condition on transfer: Stable Prescriptions/Referrals Prescriptions/Med Rec: New atorvastatin 20 mg Tablet 80 mg PO HS 30 Days Qty: 120 0RF aspirin 81 mg Tablet,Delayed Release (Dr/Ec) 81 mg PO QDAY 30 Days Qty: 30 0RF nitrofurantoin monohyd/m-cryst 100 mg capsule 100 mg PO BID 4 Days Qty: 8 0RF Rx Instructions: must administer with a meal/food Continued carvedilol [Coreg] 3.125 mg Tablet 6.25 mg PO BID metformin 1,000 mg tablet 1,000 mg PO BIDAC ferrous sulfate 325 mg (65 mg iron) Tablet 325 mg PO QDAY Januvia 100 mg Tablet 100 mg PO QDAY Entresto 24-26 mg Tablet 1 tab PO BID Discontinued rosuvastatin 40 mg tablet 40 mg PO QDAY atorvastatin 80 mg Tablet 80 mg PO QDAY clopidogrel 75 mg Tablet 75 mg PO QDAY cefpodoxime 200 mg tablet 200 mg PO BID Qty: 14 0RF Rx Instructions: must administer with a meal/food Referrals: Sanjay Paul MD [Primary Care Provider] - Adam Aquino MD [Physician] - Patient/Caregiver Discharge Instructions Other Discharge Activity Instructions:: Stop taking Plavix due to your high risk of bleeding. Continue taking atorvastatin 80 mg daily and aspirin 81 mg daily as treatment for stroke. Complete antibiotic course as prescribed for treatment of UTI. Follow up with neurology in 1-2 weeks. Follow up with PCP in 1-2 weeks. Education Materials: Discharge Instructions for Stroke, ED Atrial Fibrillation, ED Bladder Infection, Male (Adult) Print Language: [place]an Stand Alone Forms: Mari Award Info., Patient Portal Info Letter Discharge Order Discharge Orders: Discharge (Routine); Ordered 03/16/25 Ordered By: Marily Gonzalez Quality Discharge Quality Measures VTE prophylaxis Attestestation Attestation I have examined the patient, reviewed labs and imaging findings, discussed the case with the resident(s), and reviewed entered orders. I agree with the plan of care as outlined in this note. Time Spent: [address] Abram MD
[2025-03-16 15:45] VITALS: BP 134/71; PULSE 66; RESP 18; TEMP 36.4; O2SAT 94
== END 2025-03-16 15:45 | disposition skilled nursing facility (03) | DRG 65 ==
LOC: SERX 16:08 → SERHOLD 16:20 → S2NX 17:11
PROVIDERS: Nurse Practitioner Family; Student in an Organized Health Care Education/Training Program; Admitting Provider Student in an Organized Health Care Education/Training Program; Emergency Provider Emergency Medicine; PCP Family Medicine; Visit Provider Student in an Organized Health Care Education/Training Program
DX: I63.9 Cerebral infarction, unspecified (principal); G81.91 Hemiplegia, unspecified affecting right dominant side; N39.0 Urinary tract infection, site not specified; I10 Essential (primary) hypertension; E11.9 Type 2 diabetes mellitus without complications; N40.1 Benign prostatic hyperplasia with lower urinary tract symptoms; Z87.440 Personal history of urinary (tract) infections; I48.91 Unspecified atrial fibrillation; R29.701 NIHSS score 1; E83.42 Hypomagnesemia; B96.89 Other specified bacterial agents as the cause of diseases classified elsewhere; B96.1 Klebsiella pneumoniae [K. pneumoniae] as the cause of diseases classified elsewhere; I95.9 Hypotension, unspecified; G47.33 Obstructive sleep apnea (adult) (pediatric); Z79.02 Long term (current) use of antithrombotics/antiplatelets; Z79.4 Long term (current) use of insulin; Z79.82 Long term (current) use of aspirin; Z79.84 Long term (current) use of oral hypoglycemic drugs; Z79.899 Other long term (current) drug therapy; Z91.199 Patient's noncompliance with other medical treatment and regimen due to unspecified reason
CPT/HCPCS: 36415; 70450; 70496; 70498; 70544; 80053; 80061; 80307; 81001; 83036; 83735; 84100; 84443; 84484; 85025; 85610; 85730; 87077; 87086; 87186; 92610; 93005; 93306; 96365; 97162; 99285; A4649; J0696; J1815; J2470; J3475; J7030; Q9967; A9270

== ENCOUNTER → 2025-04-30 | Outpatient (CLI) | payer MEDICARE, BC, SELFPAY ==
[2025-04-30 10:51] LABS: Glucose Estimated Average 126 mg/dL (80-131); Hemoglobin A1C 6.0 % Hgb (4.8-6.0)
[2025-04-30 11:08] LABS: Alanine Aminotransferase 24 U/L (10-49); Albumin, Serum 3.8 gm/dL (3.4-4.8); Albumin/Globulin Ratio 1.2 (1.2-2.2); Alkaline Phosphatase 127 U/L (46-116); Anion Gap 8 (7-16); Aspartate Amino Transferase 31 U/L (0-34); BUN/Creatinine Ratio 16 Ratio (12-20); Bilirubin,Total 0.7 mg/dL (0.3-1.2); Blood Urea Nitrogen 13 mg/dL (9-23); Calcium 9.0 mg/dL (8.3-10.6); Calcium (Corrected) 9.2 mg/dL (8.5-10.1); Carbon Dioxide 27.2 mMol/L (20.0-31.0); Cardiac Risk Estimate 2.7 RATIO (4.0-6.7); Chloride 108 mMol/L (98-107); Cholesterol 102 mg/dL (132-200); Creatinine (Component) 0.8 mg/dL (0.6-1.3); Globulin 3.1 gm/dL (2.3-3.5); Glucose 91 mg/dL (74-106); HDL Cholesterol 38 mg/dL (40-60); LDL Cholesterol,Calculated 45 mg/dL (0-130); Osmolality,Calculated 285 (275-295); Potassium 4.4 mMol/L (3.4-5.1); Sodium 143 mMol/L (136-145); Total Protein 6.9 gm/dL (5.7-8.2); Triglycerides 93 mg/dL (30-150); eGFR > 60 See Note
[2025-04-30 16:41] LABS: Basophils # (Auto) 0.1 Thou/mm3 (0.0-0.2); Basophils % (Auto) 1 % (0-2.5); Eosinophils # (Auto) 0.1 Thou/mm3 (0.0-0.5); Eosinophils % (Auto) 2 % (0-10); Hematocrit 38.1 % (41.0-53.0); Hemoglobin 12.4 g/dL (13.5-16.0); Immature Granulocytes Auto 0.02 Thou/mm3 (0.00-0.00); Lymphocytes # (Auto) 1.5 Thou/mm3 (1.0-4.8); Lymphocytes % (Auto) 26 % (10-50); Mean Corpuscular HGB Conc 32.5 g/dl (31.0-37.0); Mean Corpuscular Hemoglobin 30.7 pg (25.0-35.0); Mean Corpuscular Volume 94 fL (80-100); Monocytes # (Auto) 0.6 Thou/mm3 (0.0-0.8); Monocytes % (Auto) 11 % (0-12); Neutrophils # (Auto) 3.5 Thou/mm3 (1.8-7.7); Neutrophils % (Auto) 60 % (37-80); Nucleated Red Blood Cell # 0.00 Thou/mm3 (0.00-0.00); Nucleated Red Blood Cell % 0 /100 WBC (0); Platelet Count 241 Thou/mm3 (140-440); RDW Standard Deviation 48.5 fL (35.1-43.9); Red Blood Count 4.04 Miln/mm3 (4.50-5.90); White Blood Count 5.9 Thou/mm3 (3.8-10.6)
== END | disposition home or self-care (01) ==
PROVIDERS: PCP Family Medicine; Referring Provider Family Medicine; Visit Provider Family Medicine
DX: E11.59 Type 2 diabetes mellitus with other circulatory complications (principal); E78.2 Mixed hyperlipidemia; I10 Essential (primary) hypertension; D64.9 Anemia, unspecified
CPT/HCPCS: 36415; 80053; 80061; 83036; 85025

== ENCOUNTER 2025-07-25 11:26 | Inpatient (IN) | payer MEDICARE, BC, SELFPAY ==
[2025-07-25] VITALS (14 sets, daily range): BP systolic 93–117; BP diastolic 54–67; PULSE 66–98; RESP 17–24; TEMP 36.9–39.4; O2SAT 92–98; BMI 25.8; BMI 26.4
--- NOTE | 2025-07-25 11:34 | XR_ITS ---
CLINICAL INDICATION: Sepsis protocol TECHNIQUE: Single AP view of the chest COMPARISON: 09/05/2024 FINDINGS: The cardiomediastinal silhouette is within normal of size for portable technique. Aortic atherosclerosis is identified. Interval development of mild streaky opacification in the lingula or left lower lobe. The remaining lungs appear clear. No evidence for dense airspace consolidation. No pleural effusion or pneumothorax. Multifocal degenerative changes with otherwise no evidence for recent fracture or aggressive lesion. IMPRESSION: Interval development of nonspecific streaky opacification in the lingula or left lower lobe that could be due to aspiration or developing bronchopneumonia. Short-term follow-up PA and lateral radiographs could be obtained for reevaluation. - This report was generated utilizing speech recognition software. -
--- NOTE | 2025-07-25 11:34 | EKG_ITS ---
[facility] Test Date: 2025-07-25 Pat Name: FARZANEH PRICE Department: Room: - Gender: Male Line Service Person: : 1945 Requested By: Maranda Pichardo Order Number: [id number] Reading MD: Maranda Pichardo Measurements Intervals [place] Rate: 74 P: DC: QRS: -52 QRSD: 142 T: -11 QT: 402 QTc: 447 Interpretive Statements ATRIAL FIBRILLATION LEFT AXIS DEVIATION [QRS AXIS < -30] RIGHT BUNDLE BRANCH BLOCK [120+ ms QRS DURATION, UPRIGHT V1, 40+ ms S IN I/aVL/V4/V5/V6] ANTEROSEPTAL MYOCARDIAL INFARCTION , OF INDETERMINATE AGE [40+ ms Q WAVE IN V1-V4] Compared to ECG 03/13/2025 13:26:37 Right bundle-branch block now present Ventricular premature complex(es) no longer present Aberrant conduction of supraventricular beat(s) no longer present Myocardial infarct finding still present /store/S0/[id number]
--- NOTE | 2025-07-25 11:35 | PD.EDWEAK ---
ED Weakness RME/HPI General Chief complaint: Weakness Stated complaint: WEAKNESS Time Seen by Provider: 07/25/25 11:33 Arrival date/time: 07/25/25 11:26 80-year-old male patient with significant history of hypertension diabetes mellitus, hypercholesterolemia CVA, lives alone, was brought in by EMS for evaluation regarding generalized body weakness. Patient told me that he felt very warm this morning, somebody was knocking on the door, was sitting on the couch, cannot get up. With EMS arrived patient was noted to be febrile. GCS of 15. Patient denies any localizing focal deficit. Patient denies any cough abdominal pain chest pain dysuria sore throat or other complaints. A code sepsis alert for a fever of 103. Was also noted to have 1 episode of vomiting.. Currently denies any cough. Related Data Home Medications ?Medication ?Instructions ?Recorded ?Confirmed carvedilol 3.125 mg tablet (Coreg) 6.25 mg PO BID 10/10/20 03/13/25 metformin 1,000 mg tablet 1,000 mg PO BIDAC 10/10/20 03/13/25 ferrous sulfate 325 mg (65 mg 325 mg PO QDAY 08/21/22 03/13/25 iron) tablet sacubitril 24 mg-valsartan 26 mg 1 tab PO BID 09/05/24 03/13/25 tablet (Entresto) sitagliptin phosphate 100 mg 100 mg PO QDAY 09/05/24 03/13/25 tablet (Januvia) Allergies Allergy/AdvReac Type Severity Reaction Status Date / Time onion Allergy Mild Numbness Verified 07/25/25 11:35 Review of Systems Review of Systems Narrative Review of Systems: Review of system reviewed and within normal limits except mentioned in HPI ED Exam Narrative Physical exam: VITAL SIGNS: Reviewed. GENERAL APPEARANCE: Alert and interactive, follows commands, no acute distress, febrile HEAD AND FACE: Non-traumatic. ENT: PERRL, pink conjunctivitis, eyelid no trauma, Mucous membrane moist. NECK: Supple, nontender, no nuchal rigidity. CHEST: No tenderness, no crepitus, no paradoxical movement, no retractions. LUNGS: Clear, well ventilated, symmetric, no rales, no wheezing, no ronchi, no stridor, good breath sounds bilaterally. HEART: Tachycardic, no murmur, no gallops. ABDOMEN: Soft, positive bowel sounds, nondistended, no guarding, nontender, no rebound, no masses, RECTAL: Deferred. GENITAL: Deferred. NEUROLOGICAL: Gross motor function intact sensory function intact, Appropriate for age. MUSCULOSKELETAL: low back nontender, full range of motion. EXTREMITIES: Nontender, full range of motion. SKIN: Color pink, dry, no rash, no lacerations, no abrasions, no contusions. LYMPHATICS: Deferred. Course Quality Measures none Orders Category Date Time Status Bedside COVID-19 Antigen Test NOW Care 07/25/25 11:33 Active Bedside Influenza A&B Antigen Test NOW Care 07/25/25 11:34 Completed COVID-19 Screening Questionnaire NOW Care 07/25/25 15:37 Active Communications Manager STAT Care 07/25/25 11:34 Active Continuous Pulse Oximetry STAT Care 07/25/25 11:34 Completed Decision to Admit X1 Care 07/25/25 15:37 Active EKG (ED ONLY) *Do not use* NOW Care 07/25/25 11:34 Completed In and Out Catheter X1PRN Care 07/25/25 11:34 Completed Insert IV NOW Care 07/25/25 11:34 Active NPO STAT Care 07/25/25 11:34 Active Strict Intake and Output Routine Care 07/25/25 11:34 Ordered EKG (ED Only) Stat Exams 07/25/25 11:34 Draft XR chest 1V SEPSIS PROTOCOL Stat Exams 07/25/25 11:34 Completed B-Type Natriuretic Peptide Stat Lab 07/25/25 11:40 Completed Blood Culture (Lab) Stat Lab 07/25/25 11:47 Received CBC Stat Lab 07/25/25 11:40 Completed Comprehensive Metabolic Panel Stat Lab 07/25/25 11:40 Completed LDH (Lactate Dehydrogenase) Stat Lab 07/25/25 11:40 Completed Lactate (Lactic Acid) Stat Lab 07/25/25 11:40 Completed Lactic Acid, 3 HR Stat Lab 07/25/25 15:08 Completed Lipase Stat Lab 07/25/25 11:40 Completed Magnesium Stat Lab 07/25/25 11:40 Completed Partial Thromboplastin Time Stat Lab 07/25/25 11:40 Completed Phosphorous Stat Lab 07/25/25 11:40 Completed Procalcitonin Stat Lab 07/25/25 11:40 Completed Prothrombin Time with INR Stat Lab 07/25/25 11:40 Completed Troponin I Stat Lab 07/25/25 11:40 Completed Urinalysis, C/S if Indicated Stat Lab 07/25/25 12:25 Completed Urine Culture Stat Lab 07/25/25 12:25 Received Acetaminophen Tab [Tylenol ES Tab] Med 07/25/25 11:33 Discontinued 1,000 mg PO X1 ONE Ringers Lactated 1000 ml [Lactated Ringers] 1,000 ml Med 07/25/25 11:34 Discontinued IV 999 mls/hr cefTRIAXone/D5w 1gm IV premix [Rocephin/D5w 1gm IV Med 07/25/25 11:35 Discontinued premix] 1 gm in 50 ml IV X1 Oxygen Delivery NOW RT 07/25/25 11:34 Active Vital Signs Vital signs: Vital Signs Temperature 103 F H 07/25/25 11:31 Pulse Rate 78 07/25/25 11:31 Respiratory Rate 18 07/25/25 11:31 Blood Pressure 117/65 07/25/25 11:31 Pulse Oximetry (%) 95 07/25/25 11:31 Oxygen Delivery Method Room Air 07/25/25 11:31 Weakness MDM Narrative MDM Narrative:: 07/25/25 11:26 80-year-old male patient with significant history of hypertension diabetes mellitus, hypercholesterolemia anemia, lives alone, was brought in by EMS for evaluation regarding generalized body weakness. Patient told me that he felt very warm this morning, somebody was knocking on the door, was sitting on the couch, cannot get up. With EMS arrived patient was noted to be febrile. GCS of 15. Patient denies any localizing focal deficit. Patient denies any cough abdominal pain chest pain dysuria sore throat or other complaints. A code sepsis alert for a fever of 103. Was also noted to have 1 episode of vomiting.. Currently denies any cough. Laboratory Significant for lactic acid 2.9, no leukocytosis noted CMP unremarkable. Repeat lactic acid 2.1. Magnesium 1.2. Chest x-ray came back with possible aspiration pneumonia. Patient received IV fluids, IV ceftriaxone. And was also given Tylenol. Case discussed with hospitalist, and admitted the patient. Patient data External records reviewed:: None Clinical information provided by:: patient Social determinants that could affect healthcare access:: none Patient has the following chronic illnesses:: Hypertension diabetes mellitus history of CVA How is presenting disease/condition affected by chronic disease/condition?: exacerbated by Evaluation data The following diagnostics were reviewed and interpreted by me:: lab results, radiology exam(s) and EKG tracing(s) Lab and/or radiology exams considered but not ordered:: None Interpretation Summary: EKG showed chronic A-fib, ventricular rate of 74 bpm, no ST segment elevation depression noted. Medications / Prescriptions Medications or Prescriptions considered but not ordered:: None Medication administrations:: Medication Administration History Discontinued Medications Acetaminophen (Acetaminophen 500 Mg Tablet) 1,000 mg PO X1 ONE Stop: 07/25/25 11:34 Last Admin: 07/25/25 11:57 Dose: 1,000 mg Documented By: BY Lactated Ringer's (Lactated Ringers) 1,000 mls @ 999 mls/hr IV .Q1H1M ONE Stop: 07/25/25 12:34 Last Infusion: 07/25/25 12:59 Dose: Infused Documented By: Admin: 07/25/25 11:56 Dose: 999 mls/hr Documented By: BY Ceftriaxone Sodium/Dextrose (Rocephin/D5w 1gm Iv Premix) 1 gm in 50 mls @ 100 mls/hr IV X1 ONE Stop: 07/25/25 12:04 Last Infusion: 07/25/25 12:30 Dose: Infused Documented By: Admin: 07/25/25 11:58 Dose: 100 mls/hr Documented By: BY Ceftriaxone IV fluids Tylenol magnesium IV Consultations Consultation(s) initiated? (list below): No Diagnosis Weakness Differential Diagnosis: sepsis and dehydration Most likely diagnosis given after review of the tests above:: UTI, pneumonia, sepsis Admission Indicated Admission indicated?: not indicated Admission Request Was there a request for admission?: Yes Admission Attestation Admission request attestation: Discussed case with [Dr Sanderson] from Hospitalist service regarding admission. Discussed patients ED course, exam findings, labs, and radiology results. The Hospitalist [agrees] to accept the patient for admission. Disposition Plan Disposition Plan: Admit Discharge Plan Plan Patient Disposition: Admit Acute Care w/in Hospital Discharge Disposition comment: Stable Prescriptions/Referrals Prescriptions/Med Rec: No Action carvedilol [Coreg] 3.125 mg Tablet 6.25 mg PO BID metformin 1,000 mg tablet 1,000 mg PO BIDAC ferrous sulfate 325 mg (65 mg iron) Tablet 325 mg PO QDAY Januvia 100 mg Tablet 100 mg PO QDAY Entresto 24-26 mg Tablet 1 tab PO BID Referrals: Sanjay Paul MD [Primary Care Provider, Family Practice] - In 1 week Problem List Clinical Impression: Sepsis, Pneumonia, UTI (urinary tract infection) Patient/Caregiver Discharge Instructions Print Language: Bulgarian Stand Alone Forms: Mari Award Info., Patient Portal Info Letter
[2025-07-25 11:48] LABS: Lactate (Lactic Acid) 2.9 mMol/L (0.4-2.0)
[2025-07-25 11:49] LABS: Basophils # (Auto) 0.0 Thou/mm3 (0.0-0.2); Basophils % (Auto) 0 % (0-2.5); Eosinophils # (Auto) 0.0 Thou/mm3 (0.0-0.5); Eosinophils % (Auto) 0 % (0-10); Hematocrit 36.3 % (41.0-53.0); Hemoglobin 12.1 g/dL (13.5-16.0); Immature Granulocytes Auto 0.02 Thou/mm3 (0.00-0.00); Lymphocytes # (Auto) 0.2 Thou/mm3 (1.0-4.8); Lymphocytes % (Auto) 3 % (10-50); Mean Corpuscular HGB Conc 33.3 g/dl (31.0-37.0); Mean Corpuscular Hemoglobin 30.8 pg (25.0-35.0); Mean Corpuscular Volume 92 fL (80-100); Monocytes # (Auto) 0.1 Thou/mm3 (0.0-0.8); Monocytes % (Auto) 1 % (0-12); Neutrophils # (Auto) 6.4 Thou/mm3 (1.8-7.7); Neutrophils % (Auto) 95 % (37-80); Nucleated Red Blood Cell # 0.00 Thou/mm3 (0.00-0.00); Nucleated Red Blood Cell % 0 /100 WBC (0); Platelet Count 157 Thou/mm3 (140-440); RDW Standard Deviation 49.2 fL (35.1-43.9); Red Blood Count 3.93 Miln/mm3 (4.50-5.90); White Blood Count 6.7 Thou/mm3 (3.8-10.6)
[2025-07-25] MEDS: RINGERS LACTATED 1000 ML 1,000 ML 999 ML IV (11:56)
[2025-07-25] MEDS: ACETAMINOPHEN 500 MG TABLET 1000 MG PO (11:57)
[2025-07-25] MEDS: cefTRIAXone/D5w 1gm IV premix 1 GM/50 ML BAG IV (11:58)
[2025-07-25 12:03] LABS: INR 1.2 (0.9-1.3); Partial Thromboplastin Time 24.5 Seconds (22.0-36.0); Prothrombin Time 12.2 Seconds (9.0-12.2)
[2025-07-25 12:09] LABS: B-Type Natriuretic Peptide 353 pg/mL (0-100)
[2025-07-25 12:17] LABS: Alanine Aminotransferase 26 U/L (10-49); Albumin, Serum 4.0 gm/dL (3.4-4.8); Albumin/Globulin Ratio 1.5 (1.2-2.2); Alkaline Phosphatase 133 U/L (46-116); Anion Gap 12 (7-16); Aspartate Amino Transferase 41 U/L (0-34); BUN/Creatinine Ratio 14 Ratio (12-20); Bilirubin,Total 1.2 mg/dL (0.3-1.2); Blood Urea Nitrogen 10 mg/dL (9-23); Calcium 8.9 mg/dL (8.3-10.6); Calcium (Corrected) 8.9 mg/dL (8.5-10.1); Carbon Dioxide 23.5 mMol/L (20.0-31.0); Chloride 108 mMol/L (98-107); Creatinine (Component) 0.7 mg/dL (0.6-1.3); Estimated Creatinine Clearance 85.5 mL/min (>60); Globulin 2.6 gm/dL (2.3-3.5); Glucose 95 mg/dL (74-106); LDH (Lactate Dehydrogenase) 182 U/L (120-246); Lipase 36 U/L (12-53); Magnesium 1.2 mg/dL (1.6-2.6); Osmolality,Calculated 283 (275-295); Phosphorous 2.0 mg/dL (2.4-5.1); Potassium 3.6 mMol/L (3.4-5.1); Procalcitonin 1.23 ng/ml (0.0-0.49); Sodium 143 mMol/L (136-145); Total Protein 6.6 gm/dL (5.7-8.2); Troponin I < 0.020 ng/mL (0.0-0.045); eGFR > 60 See Note
[2025-07-25 12:32] LABS: Collection Type, Urine Clean Catch
[2025-07-25 12:49] LABS: Bacteria,Urine 1+; Bilirubin,Urine Negative (Negative); Blood,Urine Trace (Negative); Color,Urine Lt-Yellow (Lt Yel-Yel); Glucose, Urine Negative (Negative); Ketones,Urine Negative (Negative); Leukocyte Esterase,Urine Positive (Negative); Nitrite,Urine Positive (Negative); PH,Urine 6.0 (5.0-7.0); Protein,Urine Trace (Neg - Trace); RBC,Urine 4 /hpf (0-3); Specific Gravity,Urine 1.015 (1.001-1.035); Squamous Epithelial Cell,Urine 1 /hpf (0-5); Urobilinogen,Urine Negative mg/dL (0.0-1.0); WBC,Urine 14 /hpf (0-5)
[2025-07-25 12:50] LABS: Clarity,Urine Hazy (Clear/Hazy); Culture Indicated,Urine Yes
[2025-07-25 14:46] LABS: Reflex Lactate? Y
[2025-07-25 15:12] LABS: Lactic Acid, 3 HR 2.1 mMol/L (0.4-2.0)
[2025-07-25] MEDS: Magnesium Sulfate 2 GM Ivpb 2 GM/50 ML BAG IV (16:43)
--- NOTE | 2025-07-25 18:10 | PC.NURSE ---
report called to [facility]
--- NOTE | 2025-07-25 19:19 | ESHP_ITS ---
<Statement entered by Alana Sanderson MD - 07/26/25 08:18> Mr. Mann is a 80-year-old male with a past medical history of hypertension, diabetes mellitus, hyperlipidemia and ischemic stroke in September 2020 presented to the ED complaining of weakness. Patient states that he was feeling so weak was unable to get out of his chair to open the door for his physical therapist. Patient states generally when he has a UTI he has weakness and other symptoms that will mimic a stroke. Patient states he was anxious about a stroke therefore came to the ED. Imaging is negative patient weakness has improved however urinalysis is positive for nitrites, leukocyte esterase and pyuria. Therefore patient is admitted to the hospital for IV antibiotics for UTI and urine culture is pending. Patient was seen and examined by me personally. I have directly supervised and reviewed documentation by the team resident and agree with its findings. ------- Plan of care was discussed with the attending, Dr. Deisy Sanderson, PGY-2 Documentation for date of: 07/25/25 HPI History of Present Illness History of present illness: HPI: 80-year-old male with a past medical history of hypertension, diabetes mellitus, hypercholesterolemia, previous CVA in September 2020, who presented to the ED with weakness. Patient mentioned that he could not get up from his chair at his house. He was found to have a temp of 103 and a chest x-ray that showed an opacification in the left upper lobe suspicious for pneumonia. Sofa score was 1 on admission. Patient met severe sepsis criteria with 2/4 SIRS criteria with a temp of 102 and a respiratory rate of 24 combined with lactic acidosis of 2.9. Patient was admitted for severe sepsis secondary to left lower lobe pneumonia. ED course: * Vitals on arrival significant for a temp of 103. * Significant labs on arrival: Hemoglobin 12.1, hematocrit 36.3, red blood cell distribution width of 49.2%, lactic acid 2.9 -> 2.1, Phos 2.0, magnesium 1.2, alk phos 133, BNP 353, procalcitonin 1.23. Urine is nitrite positive with 4 RBC, 14 WBC, 1+ bacteria. * Imaging: Chest x-ray showed a left lower lobe opacity suspicious for pneumonia. EKG showed A-fib with a rate of 74. * Per ED the patient had 1 episode of vomiting. Patient was treated with a 1 L LR bolus, 1 g of acetaminophen, 1 g of ceftriaxone, and magnesium. History: * Past medical history as above * Family history of asthma and diabetes * Surgical history of prostate reduction per the patient * Social history: Denies alcohol or tobacco * Allergies: Onions, no known drug allergies * Home medications: Metformin 1000 mg twice a day, ferrous sulfate 325 mg daily, Januvia 100 mg daily, carvedilol 6.25 mg twice daily, Entresto 24/ daily, clopidogrel 75 mg daily, aspirin 81 mg daily. Review of Systems Review of Systems Narrative Review of Systems: Review of Systems: * General: Endorses chills. * HEENT: Denies headache, congestion, or sore throat. * Cardiac: Denies chest pain or palpitations. * Pulmonary: Denies shortness of breath or cough. * GI: Denies nausea, vomiting, diarrhea, constipation, melena, or hematochezia. * : Denies dysuria, hematuria, frequency, or urgency. * MSK: Denies pain in the extremities, joints, or myalgias. * Neuro: Denies weakness, numbness, vision changes, or speech difficulty. Exam Vital Signs Temp Pulse Resp BP Pulse Ox O2 Del Method 98.8 F 76 20 99/61 95 Room Air 07/25/25 18:34 07/25/25 18:34 07/25/25 18:34 07/25/25 18:34 07/25/25 18:34 07/25/25 18:34 Narrative Exam General: Awake and in no acute distress. Conversational and non-toxic appearing. Neurologic: GCS 15. Alert and oriented x3, no gross neurological deficit, and patient able to move all 4 extremities. HEENT: Normocephalic, atraumatic, mucous membranes moist. Pupils reactive to light. Heart: Irregular rhythm, normal S1 and S2, no murmurs. Lungs: Decreased breath sounds in the bases bilaterally. Abdomen: Soft, nondistended, nontender, positive bowel sounds. No guarding or rebound tenderness. Extremities: No edema. 2+ radial and dorsalis pedis pulses bilaterally. Skin: Warm. Dry. No rash or ecchymoses. Results: Labs 07/26/25 05:31 07/26/25 05:31 Labs: Short CBC 07/25/25 Range/Units 11:40 WBC 6.7 (3.8-10.6) Thou/mm3 Hgb 12.1 L (13.5-16.0) g/dL Hct 36.3 L (41.0-53.0) % Plt Count 157 (140-440) Thou/mm3 BMP 07/25/25 11:40 Sodium 143 Potassium 3.6 Chloride 108 H Carbon Dioxide 23.5 BUN 10 Creatinine 0.7 Glucose 95 Calcium 8.9 Cardiac Enzymes 07/25/25 Range/Units 11:40 Troponin I < 0.020 (0.0-0.045) ng/mL Liver Function 07/25/25 Range/Units 11:40 Total Bilirubin 1.2 (0.3-1.2) mg/dL AST 41 H (0-34) U/L ALT 26 (10-49) U/L Alkaline Phosphatase 133 H (46-116) U/L Albumin 4.0 (3.4-4.8) gm/dL Urine 07/25/25 Range/Units 12:25 Urine Color Lt-Yellow (Lt Yel-Yel) Urine Clarity Hazy (Clear/Hazy) Urine pH 6.0 (5.0-7.0) Ur Specific [place] 1.015 (1.001-1.035) Urine Protein Trace (Neg - Trace) Urine Glucose (UA) Negative (Negative) Quality Measures Quality Measures none Advance care planning discussed with:: patient Medications Home Medications and Allergies Home Medications ?Medication ?Instructions ?Recorded ?Confirmed ?Type carvedilol 3.125 mg tablet (Coreg) 6.25 mg PO BID 09/2007/25/25 History metformin 1,000 mg tablet 1,000 mg PO BIDAC 10/10/20 1 09/24/24 History ferrous sulfate 325 mg (65 mg 325 mg PO QDAY 08/21/22 07/25/25 History iron) tablet sacubitril 24 mg-valsartan 26 mg 1 tab PO BID 09/05/24 07/25/25 History tablet (Entresto) sitagliptin phosphate 100 mg 100 mg PO QDAY 09/05/24 1 09/24/24 History tablet (Januvia) aspirin 81 mg chewable tablet 81 mg PO QDAY 07/25/25 1 09/24/24 History (Kathy Chewable Low Dose Aspirin) cranberry extract-multivitamin 1 ea .Route QDAY 07/25/25 History clopidogrel 75 mg tablet (Plavix) 75 mg PO QDAY 07/26/25 History Allergies Allergy/AdvReac Type Severity Reaction Status Date / Time onion Allergy Mild Numbness Verified 07/25/25 11:35 Visit Medications Acetaminophen (Acetaminophen 500 Mg Tablet) 1,000 mg PO Q6H PRN PRN Reason: Fever >100.9 Stop: 08/24/25 17:19 Aspirin (Aspirin 81 Mg Chew) 81 mg PO QDAY GAUD[facility] Stop: 08/25/25 08:59 Clopidogrel Bisulfate (Clopidogrel Bisulfate 75 Mg Tablet) 75 mg PO DAILY GAUDENCIO Stop: 08/25/25 08:59 Dextrose (Dextrose 50%-Water Inj 50 Ml Syringe) 25 ml IV Q15MIN PRN PRN Reason: BG 50-70 responsive npo pt Stop: 08/24/25 17:45 Dextrose (Dextrose 50%-Water Inj 50 Ml Syringe) 50 ml IV Q15MIN PRN PRN Reason: BG <50 OR BG <70 & pt unresponsive Stop: 08/24/25 17:45 Glucagon (Glucagon Inj 1 Mg Vial) 1 mg IM Q15MIN PRN PRN Reason: BG <70, and no IV access Heparin Sodium (Porcine) (Heparin Sod Inj 5000 Unit/Ml Vial) 5,000 unit SC Q8HR [facility] Stop: 08/08/25 21:59 Ceftriaxone Sodium/Dextrose (Rocephin/D5w 1gm Iv Premix) 1 gm in 50 mls @ 100 mls/hr IV QDAY [facility] Stop: 08/02/25 08:59 Insulin Human Lispro (Insulin Lispro (Admelog) 1 Unit/0.01 Ml Unit) 0 unit SC AC [facility]; Protocol Stop: 08/25/25 07:29 Ondansetron HCl (Ondansetron Inj 2 Mg/Ml Inj 2 Ml) 4 mg IVP Q6H PRN; Protocol PRN Reason: NAUSEA OR VOMITING Stop: 08/24/25 17:19 Discontinued Medications Acetaminophen (Acetaminophen 500 Mg Tablet) 1,000 mg PO X1 ONE Stop: 07/25/25 11:34 Last Admin: 07/25/25 11:57 Dose: 1,000 mg Lactated Ringer's (Lactated Ringers) 1,000 mls @ 999 mls/hr IV .Q1H1M ONE Stop: 07/25/25 12:34 Last Infusion: 07/25/25 12:59 Dose: Infused Ceftriaxone Sodium/Dextrose (Rocephin/D5w 1gm Iv Premix) 1 gm in 50 mls @ 100 mls/hr IV X1 ONE Stop: 07/25/25 12:04 Last Infusion: 07/25/25 12:30 Dose: Infused Magnesium Sulfate (Magnesium Sulfate Ivpb) 2 gm in 50 mls @ 25 mls/hr IV X1 ONE Stop: 07/25/25 17:46 Last Admin: 07/25/25 16:43 Dose: 25 mls/hr Assessment & Plan Plan Summary: 80-year-old male with a past medical history of hypertension, diabetes mellitus, hypercholesterolemia, previous CVA in September 2020, who presented to the ED with weakness. Was found to have a left lower lobe opacity on chest x-ray suspicious for pneumonia as well as a temperature of 103 on arrival. He was admitted for sepsis secondary to pneumonia. #Severe sepsis leading to distributive shock secondary to #Pneumonia * Patient met severe sepsis criteria with 2/4 SIRS criteria with a temp of 103 and a respiratory rate of 24 combined with lactic acidosis of 2.9. * Sofa score was 1 on admission. * Chest x-ray showed left lower lobe opacity suspicious for pneumonia * Patient was hypotensive with a BP of 99/61 between the time of arrival to admission * Lactic acid downtrended * Procalcitonin 1.23, reinforces bacterial etiology * Urine is nitrite positive with 4 RBC, 14 WBC, 1+ bacteria. * Potential sources at this time include pneumonia versus UTI Plan: * Started ceftriaxone Reassessment: * Monitor blood pressure for signs of distributive shock * Follow-up blood cultures #Previous CVA #A-fib * Patient had a stroke in September 2020 with residual right-sided weakness * Patient had no focal neurological deficits on exam * EKG on arrival showed A-fib Plan: * Restarted home aspirin and Plavix Reassessment: * Repeat EKG morning of 07/26/2025 #Type II diabetes * A1c 6.0 on 04/30/2025 * Patient takes metformin 1000 mg twice daily, Januvia 100 mg daily Plan: * Insulin sliding scale #History of hypertension #HFrEF EF 55% * Patient takes carvedilol 6.25 mg twice a day, Entresto twice a day * Echo on 03/14/2025 showed an EF of 55% Plan: * Hold home carvedilol and Entresto in the presence of distributive shock #History of Hypercholesterolemia * Patient does not take a statin at home, cholesterol 102 on 04/30/2025 * Patient does have a history of CVA * LDL was 45 on 04/30/2025 Plan: * Consider GDMT of high intensity statin like atorvastatin 80 mg daily upon discharge, given that the patient has a history of CVA even though his LDL was 45 Reassessment: * Follow-up lipid panel Hospital Maintenance: DVT ppx: DAPT with aspirin Plavix Diet: Carb consistent IV lines: Peripheral IVs Code status: DNR/DNI Dispo: Admitted for severe sepsis secondary to pneumonia. Treating with ceftriaxone. Patient was seen and discussed with my attending physician Dr. Deisy FRIAS and my senior resident Dr. Kin CAMPBELL PGY-2. Lucho Jasmine DO PGY-1. Attending Provider Attestation/Addendum Cheryle, Renetta Olivas DO, attest that I was physically present for the rush portions of the service and evaluated the patient with the resident and I reviewed and discussed the case with the resident and agree with the resident's findings and plans of care as documented above Patient is an 80-year-old male with past medical history of type 2 diabetes, CVA, HLD, hypertension who was brought to ED due to generalized weakness. Patient states that he started feeling unwell overnight when he noticed to have increased urgency and frequency of urination. Patient lives alone and states that his sister was checking in on him when patient tried to get out of his chair to open the door for the physical therapist. However, patient stated that he was too weak to do so. He denies any loss of consciousness or head trauma or falls. He states that he has had similar symptoms in the past when he had urinary tract infections. Patient upon arrival was noted to have a temperature 103 and lactic acidosis of 2.9. He denies any pain in his chest or shortness of breath, dysuria, nausea, vomiting, diarrhea or abdominal pain. His procalcitonin was noted to be 1.23. Patient states that he has had urological problems in the past following his stroke in 2020. He had required an chronic indwelling Faustin catheter for over 2 years, but has had it removed. Patient is alert and oriented x 3, but continues to have generalized weakness. Will admit patient to med/[facility] for further workup and medical management of UTI. Will give IV fluids and antibiotics at this time. Will monitor volume status closely. Will have physical therapy work with patient due to generalized weakness.
[2025-07-25] MEDS: HEPARIN SOD INJ 5000 UNIT/ML VIAL SC (21:12)
[2025-07-26] VITALS (12 sets, daily range): BP systolic 93–140; BP diastolic 62–77; PULSE 60–81; RESP 17–18; TEMP 37.1–37.5; O2SAT 95–98
[2025-07-26] MEDS: HEPARIN SOD INJ 5000 UNIT/ML VIAL SC (05:19)
[2025-07-26 06:10] LABS: Basophils # (Auto) 0.1 Thou/mm3 (0.0-0.2); Basophils % (Auto) 1 % (0-2.5); Eosinophils # (Auto) 0.1 Thou/mm3 (0.0-0.5); Eosinophils % (Auto) 1 % (0-10); Hematocrit 30.1 % (41.0-53.0); Hemoglobin 9.9 g/dL (13.5-16.0); Immature Granulocytes Auto 0.04 Thou/mm3 (0.00-0.00); Lymphocytes # (Auto) 0.6 Thou/mm3 (1.0-4.8); Lymphocytes % (Auto) 6 % (10-50); Mean Corpuscular HGB Conc 32.9 g/dl (31.0-37.0); Mean Corpuscular Hemoglobin 30.2 pg (25.0-35.0); Mean Corpuscular Volume 92 fL (80-100); Monocytes # (Auto) 0.6 Thou/mm3 (0.0-0.8); Monocytes % (Auto) 6 % (0-12); Neutrophils # (Auto) 9.0 Thou/mm3 (1.8-7.7); Neutrophils % (Auto) 86 % (37-80); Nucleated Red Blood Cell # 0.00 Thou/mm3 (0.00-0.00); Nucleated Red Blood Cell % 0 /100 WBC (0); Platelet Count 142 Thou/mm3 (140-440); RDW Standard Deviation 49.4 fL (35.1-43.9); Red Blood Count 3.28 Miln/mm3 (4.50-5.90); White Blood Count 10.5 Thou/mm3 (3.8-10.6)
[2025-07-26 06:38] LABS: Alanine Aminotransferase 20 U/L (10-49); Albumin, Serum 3.3 gm/dL (3.4-4.8); Albumin/Globulin Ratio 1.4 (1.2-2.2); Alkaline Phosphatase 96 U/L (46-116); Anion Gap 8 (7-16); Aspartate Amino Transferase 27 U/L (0-34); BUN/Creatinine Ratio 20 Ratio (12-20); Bilirubin,Total 0.9 mg/dL (0.3-1.2); Blood Urea Nitrogen 14 mg/dL (9-23); Calcium 8.3 mg/dL (8.3-10.6); Calcium (Corrected) 8.9 mg/dL (8.5-10.1); Carbon Dioxide 27.6 mMol/L (20.0-31.0); Cardiac Risk Estimate 2.5 RATIO (4.0-6.7); Chloride 107 mMol/L (98-107); Cholesterol 74 mg/dL (132-200); Creatinine (Component) 0.7 mg/dL (0.6-1.3); Estimated Creatinine Clearance 85.5 mL/min (>60); Globulin 2.3 gm/dL (2.3-3.5); Glucose 93 mg/dL (74-106); HDL Cholesterol 30 mg/dL (40-60); LDL Cholesterol,Calculated 29 mg/dL (0-130); Magnesium 1.7 mg/dL (1.6-2.6); Osmolality,Calculated 285 (275-295); Phosphorous 2.7 mg/dL (2.4-5.1); Potassium 3.4 mMol/L (3.4-5.1); Sodium 143 mMol/L (136-145); Total Protein 5.6 gm/dL (5.7-8.2); Triglycerides 73 mg/dL (30-150); eGFR > 60 See Note
[2025-07-26 06:48] LABS: Glucose Estimated Average 114 mg/dL (80-131); Hemoglobin A1C 5.6 % Hgb (4.8-6.0)
[2025-07-26] MEDS: CLOPIDOGREL BISULFATE 75 MG TABLET PO (08:14)
[2025-07-26] MEDS: ASPIRIN 81 MG CHEW PO (08:14)
[2025-07-26] MEDS: cefTRIAXone/D5w 1gm IV premix 1 GM/50 ML BAG IV (08:16)
--- NOTE | 2025-07-26 08:16 | ESPR_ITS ---
<Statement entered by Alana Sanderson MD - 07/26/25 16:41> Patient is seen at bedside. No febrile episodes overnight. Due to recurrent episodes of UTI patient's home Januvia is discontinued and patient is informed that he will need to discuss with his primary care before resuming Januvia. Blood cultures one of the 2 bottles grew GPC and urine cultures are pending. Will continue IV antibiotics and repeat blood cultures. Patient was seen and examined by me personally. I have directly supervised and reviewed documentation by the team resident and agree with its findings. ------- Plan of care was discussed with the attending, Dr. Deisy Sanderson, PGY-2 Documentation for date of: 07/26/25 Subjective Subjective Interval history: NAEO. Reports right sided weakness - this is a symptom that recurs when patient has UTIs. This was also the residual deficits seen after his previous stroke. At home, patient noted that he couldn't get up from his chair. 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 Patient takes Januvia at home. Denies cough, chest pain, headache, acute changes in vision, dysuria. He lives at home alone. Exam Vital Signs Temp Pulse Resp BP Pulse Ox O2 Del Method 98.7 F 65 18 120/67 98 Room Air 07/26/25 07:31 07/26/25 07:31 07/26/25 07:31 07/26/25 07:31 07/26/25 07:31 07/26/25 07:31 Narrative Exam General: No acute distress, well nourished Eye: PERRL, EOMI, normal conjunctiva, no scleral icterus HENT: Normocephalic, atraumatic, normal hearing, moist oral mucosa Neck: Supple, non-tender, no JVD, no lymphadenopathy Lungs: Clear to auscultation bilaterally, non-labored respirations, symmetric chest rise, no use of accessory muscles Heart: Normal S1 and S2, no S3 or S4 appreciated. Normal rate and regular rhythm, no murmurs, rubs gallops, or edema. Peripheral pulses intact bilaterally, capillary refill brisk distally Abdomen: Soft, non-tender, non-distended, normal bowel sounds. No guarding or rebound tenderness. Musculoskeletal: Normal range of motion and strength, no tenderness or swelling Skin: Skin is warm, dry, no rashes or lesions. Neurologic: Alert, awake and oriented x3. CN II-XII grossly intact. No focal neuro deficits. No signs of meningeal irritation noted. Psychiatric: Cooperative, appropriate mood and affect Objective Labs 07/26/25 05:31 07/26/25 05:31 Labs: Laboratory Results - last 24 hr 07/25/25 07/25/25 07/25/25 11:40 12:25 15:08 WBC 6.7 RBC 3.93 L Hgb 12.1 L Hct 36.3 L MCV 92 MCH 30.8 MCHC 33.3 RDW Std Deviation 49.2 H Plt Count 157 Neut % (Auto) 95 H Lymph % (Auto) 3 L [place] % (Auto) 1 Eos % (Auto) 0 Baso % (Auto) 0 Neut # (Auto) 6.4 Lymph # (Auto) 0.2 L [place] # (Auto) 0.1 Eos # (Auto) 0.0 Baso # (Auto) 0.0 Immature Gran # (Auto) 0.02 H Absolute Nucleated RBC 0.00 Immature Gran % 0 Nucleated RBC % 0 PT 12.2 INR 1.2 APTT 24.5 Sodium 143 Potassium 3.6 Chloride 108 H Carbon Dioxide 23.5 Anion Gap 12 BUN 10 Creatinine 0.7 Estim Creat Clear Calc 85.5 eGFR > 60 BUN/Creatinine Ratio [address] Glu mg/dL Hemoglobin A1c Calculated Osmolality 283 Lactic Acid 2.9 H 2.1 H Calcium 8.9 Corrected Calcium 8.9 Phosphorus 2.0 L Magnesium 1.2 L Total Bilirubin 1.2 AST 41 H ALT 26 Alkaline Phosphatase 133 H Lactate Dehydrogenase 182 Troponin I < 0.020 B-Natriuretic Peptide 353 H Total Protein 6.6 Albumin 4.0 Globulin 2.6 Albumin/Globulin Ratio 1.5 Triglycerides Cholesterol LDL Cholesterol, Calc HDL Cholesterol Cholesterol/HDL Ratio Lipase 36 Procalcitonin 1.23 H Ur Collection Type Clean Catch Urine Color Lt-Yellow Urine Clarity Hazy Urine pH 6.0 Ur Specific [place] 1.015 Urine Protein Trace Urine Glucose (UA) Negative Urine Ketones Negative Urine Blood Trace Urine Nitrite Positive Urine Bilirubin Negative Urine Urobilinogen (Auto) Negative Ur Leukocyte Esterase Positive Urine RBC 4 H Urine WBC 14 H Ur Squamous Epith Cells 1 Urine Bacteria 1+ A Ur Culture Indicated? Yes 07/26/25 05:31 WBC 10.5 D RBC 3.28 L Hgb 9.9 L D Hct 30.1 L MCV 92 MCH 30.2 MCHC 32.9 RDW Std Deviation 49.4 H Plt Count 142 Neut % (Auto) 86 H Lymph % (Auto) 6 L [place] % (Auto) 6 Eos % (Auto) 1 Baso % (Auto) 1 Neut # (Auto) 9.0 H Lymph # (Auto) 0.6 L [place] # (Auto) 0.6 Eos # (Auto) 0.1 Baso # (Auto) 0.1 Immature Gran # (Auto) 0.04 H Absolute Nucleated RBC 0.00 Immature Gran % 0 Nucleated RBC % 0 PT INR APTT Sodium 143 Potassium 3.4 Chloride 107 Carbon Dioxide 27.6 Anion Gap 8 BUN 14 Creatinine 0.7 Estim Creat Clear Calc 85.5 eGFR > 60 BUN/Creatinine Ratio [address] Glu mg/dL 114 Hemoglobin A1c 5.6 Calculated Osmolality 285 Lactic Acid Calcium 8.3 Corrected Calcium 8.9 Phosphorus 2.7 Magnesium 1.7 Total Bilirubin 0.9 AST 27 ALT 20 Alkaline Phosphatase 96 D Lactate Dehydrogenase Troponin I B-Natriuretic Peptide Total Protein 5.6 L Albumin 3.3 L D Globulin 2.3 Albumin/Globulin Ratio 1.4 Triglycerides 73 Cholesterol 74 L LDL Cholesterol, Calc 29 HDL Cholesterol 30 L Cholesterol/HDL Ratio 2.5 L Lipase Procalcitonin Ur Collection Type Urine Color Urine Clarity Urine pH Ur Specific [place] Urine Protein Urine Glucose (UA) Urine Ketones Urine Blood Urine Nitrite Urine Bilirubin Urine Urobilinogen (Auto) Ur Leukocyte Esterase Urine RBC Urine WBC Ur Squamous Epith Cells Urine Bacteria Ur Culture Indicated? Quality Measures Quality Measures none Advance care planning discussed with:: patient Assessment & Plan Assessment Current Active Medications: Generic Name Dose Route Start Last Admin Trade Name Freq PRN Reason Stop Dose Admin Acetaminophen 1,000 mg 07/25/25 17:20 Acetaminophen 500 Mg Tablet PO 08/24/25 17:19 Q6H PRN Fever >100.9 Aspirin 81 mg 07/26/25 09:00 Aspirin 81 Mg Chew PO 08/25/25 08:59 QDAY GAUDENCIO Clopidogrel Bisulfate 75 mg 07/26/25 09:00 Clopidogrel Bisulfate 75 Mg Tablet PO 08/25/25 08:59 DAILY GAUDENCIO Dextrose 25 ml 07/25/25 17:46 Dextrose 50%-Water Inj 50 Ml Syringe IV 08/24/25 17:45 Q15MIN PRN BG 50-70 responsive npo pt Dextrose 50 ml 07/25/25 17:46 Dextrose 50%-Water Inj 50 Ml Syringe IV 08/24/25 17:45 Q15MIN PRN BG <50 OR BG <70 & pt unresponsive Glucagon 1 mg 07/25/25 17:46 Glucagon Inj 1 Mg Vial IM Q15MIN PRN BG <70, and no IV access Heparin Sodium (Porcine) 5,000 unit 07/25/25 22:00 07/26/25 05:19 Heparin Sod Inj 5000 Unit/Ml Vial SC 08/08/25 21:59 5,000 unit Q8HR GAUDENCIO Administration Ceftriaxone Sodium/Dextrose 1 gm in 50 mls @ 100 mls/hr 07/26/25 09:00 Rocephin/D5w 1gm Iv Premix IV 08/02/25 08:59 QDAY [facility] Insulin Human Lispro 0 unit 07/26/25 07:30 07/26/25 07:30 Insulin Lispro (Admelog) 1 Unit/0.01 Ml Unit SC 08/25/25 07:29 Not Given AC [facility] Protocol Ondansetron HCl 4 mg 07/25/25 17:20 Ondansetron Inj 2 Mg/Ml Inj 2 Ml IVP 08/24/25 17:19 Q6H PRN NAUSEA OR VOMITING Protocol Plan Mr. Mann is an 80 y/o male with PMHx hypertension, T2DM, hypercholesterolemia, CVA in September 2020, who presented to the ED on 07/25 with weakness, chills, fever. Was found to have a left lower lobe opacity on chest x-ray suspicious for pneumonia as well as a temperature of 103 on arrival. Admitted for sepsis 2/2 pneumonia vs UTI. #Sepsis 2/2 #Community acquired pneumonia vs #Complicated UTI #Hx recurrent complicated UTI #Urinary incontinence s/p prostatectomy (>25 years ago) #Elevated lactic acid - downtrending Initial presentation: Tmax 103, RR 24, generalized weakness Initial presentation c/w symptoms from previous stroke - infection may be causing recrudesence of stroke symptoms Lactic acid 2.9 --> 2.1; procal elevated 1.23 UA +nitrite, +LE, 4 RBC, 14 WBC, 1+ bacteria. Patient takes Januvia at home - may be cause of recurrent UTI Blood cx: 09/20 grew Gram positive cocci CXR: LLL opacity c/f PNA. Denies cough, chest pain qSOFA on admit: 1 Plan: - Pending blood and urine cx - Ceftriaxone 1 g IV (07/25 -) x5-7 days - Pending repeat blood cx #Ischemic stroke left basal ganglia #Hypercholesterolemia Residual R sided weakness Lipid panel: Triglyceride 73, Cholesterol 74, LDL 29, HDL 30 ASCVD: unable to calculate due to outside age range Plan: - ASA 81 mg PO daily (home med) - Plavix 75 mg PO daily (home med) - Atorvastatin 40 mg PO QHS #A-fib Seen on repeated EKG in past Plan: - See above for antiplatelets - Not on anticoag 2/ age, fall risk, lives alone #Type II diabetes A1C 5.6 Home med: Metformin 1000 mg BID, Januvia 100 mg daily Plan: - SSI - Consider d/c Januvia on discharge / UTI #History of hypertension #HFpEF Echo 02/2025: LVEF 55%. Mild aortic calcification Plan: - Carvedilol 6.25 mg BID (home med) - Entresto BID (home med) #Normocytic anemia No s/sx active bleed On admit hgb 12.1, HCT 36.3 Plan: - Pending iron panel, retic count, ferritin - Ferrous sulfate 235 mg PO daily (home med) Checklist Dispo: IV abx, pending urine and blood cx Lines: PIV Diet: Carb consistent Bowel Reg: doc/senna PRN VTE ppx: heparin subQ GI ppx: n/a Pain mgmt: Tylenol PRN Code status: DNR/DNI Plan discussed with Dr. Betsy Sanderson and Dr. Deisy Agarwal MD PGY1 Attending Provider Attestation/Addendum I, Renetta Olivas DO, attest that I was physically present for the rush portions of the service and evaluated the patient with the resident and I reviewed and discussed the case with the resident and agree with the resident's findings and plans of care as documented above Patient seen and evaluated this AM. Patient states he is feeling much better today. No acute events overnight. GPC in 1/2 blood cultures. Will repeat blood cultures. Pending final cultures and sensitivities of ucx. Anticipate DC within next 24h
[2025-07-26] MEDS: FERROUS SULF 325 MG TABLET PO (09:19)
--- NOTE | 2025-07-26 10:33 | PC.NURSE ---
Dr. Agarwal notified preliminary blood culture returned gram pos. cocci
--- NOTE | 2025-07-26 11:48 | PC.PT ---
PT eval only. Patient is I with transfers and ambulation with walker.
[2025-07-26] MEDS: ATORVASTATIN CALCIUM 20 MG TABLET 40 MG PO (20:37)
[2025-07-27] VITALS (13 sets, daily range): BP systolic 114–150; BP diastolic 68–94; PULSE 49–80; RESP 16–96; TEMP 36.4–37.1; O2SAT 93–97
[2025-07-27 06:15] LABS: Basophils # (Auto) 0.0 Thou/mm3 (0.0-0.2); Basophils % (Auto) 0 % (0-2.5); Eosinophils # (Auto) 0.1 Thou/mm3 (0.0-0.5); Eosinophils % (Auto) 2 % (0-10); Hematocrit 31.8 % (41.0-53.0); Hemoglobin 10.7 g/dL (13.5-16.0); Immature Granulocytes Auto 0.01 Thou/mm3 (0.00-0.00); Immature Reticulocyte Fraction 12.7 % (2.3-13.4); Lymphocytes # (Auto) 1.0 Thou/mm3 (1.0-4.8); Lymphocytes % (Auto) 17 % (10-50); Mean Corpuscular HGB Conc 33.6 g/dl (31.0-37.0); Mean Corpuscular Hemoglobin 30.8 pg (25.0-35.0); Mean Corpuscular Volume 92 fL (80-100); Monocytes # (Auto) 0.5 Thou/mm3 (0.0-0.8); Monocytes % (Auto) 8 % (0-12); Neutrophils # (Auto) 4.5 Thou/mm3 (1.8-7.7); Neutrophils % (Auto) 74 % (37-80); Nucleated Red Blood Cell # 0.00 Thou/mm3 (0.00-0.00); Nucleated Red Blood Cell % 0 /100 WBC (0); Platelet Count 138 Thou/mm3 (140-440); RDW Standard Deviation 48.9 fL (35.1-43.9); Red Blood Count 3.47 Miln/mm3 (4.50-5.90); Reticulocyte % (Auto) 1.0 % (0.5-1.5); Reticulocyte Absolute Auto 33.3 Biln/L (25.0-75.0); Reticulocyte Hgb Content 33.4 pg (28.0-35.0); White Blood Count 6.1 Thou/mm3 (3.8-10.6)
[2025-07-27 06:41] LABS: Alanine Aminotransferase 21 U/L (10-49); Albumin, Serum 3.3 gm/dL (3.4-4.8); Albumin/Globulin Ratio 1.4 (1.2-2.2); Alkaline Phosphatase 99 U/L (46-116); Anion Gap 9 (7-16); Aspartate Amino Transferase 29 U/L (0-34); BUN/Creatinine Ratio 14 Ratio (12-20); Bilirubin,Total 0.7 mg/dL (0.3-1.2); Blood Urea Nitrogen 10 mg/dL (9-23); Calcium 8.4 mg/dL (8.3-10.6); Calcium (Corrected) 9.0 mg/dL (8.5-10.1); Carbon Dioxide 27.3 mMol/L (20.0-31.0); Chloride 104 mMol/L (98-107); Creatinine (Component) 0.7 mg/dL (0.6-1.3); Estimated Creatinine Clearance 85.5 mL/min (>60); Ferritin 100 ng/mL (10.5-307.3); Globulin 2.4 gm/dL (2.3-3.5); Glucose 94 mg/dL (74-106); Iron 17 mcg/dL (65-175); Magnesium 1.7 mg/dL (1.6-2.6); Osmolality,Calculated 278 (275-295); Percent Iron Saturation 8 % (20-55); Phosphorous 3.6 mg/dL (2.4-5.1); Potassium 3.4 mMol/L (3.4-5.1); Sodium 140 mMol/L (136-145); Total Iron Binding Capacity 209 mcg/dL (250-425); Total Protein 5.7 gm/dL (5.7-8.2); Unsaturated Iron Binding 192 (225-295); eGFR > 60 See Note
--- NOTE | 2025-07-27 07:51 | ESPR_ITS ---
Documentation for date of: 07/27/25 Subjective Subjective Interval history: NAEO. Reports feeling well today, no new concerns. Exam Vital Signs Temp Pulse Resp BP Pulse Ox O2 Del Method 98.0 F 68 17 137/87 H 97 Room Air 07/27/25 04:00 07/27/25 04:00 07/27/25 04:00 07/27/25 04:00 07/27/25 04:00 07/27/25 04:00 Narrative Exam General: No acute distress, well nourished Eye: PERRL, EOMI, normal conjunctiva, no scleral icterus HENT: Normocephalic, atraumatic, normal hearing, moist oral mucosa Neck: Supple, non-tender, no JVD, no lymphadenopathy Lungs: Clear to auscultation bilaterally, non-labored respirations, symmetric chest rise, no use of accessory muscles Heart: Normal S1 and S2, no S3 or S4 appreciated. Normal rate and regular rhythm, no murmurs, rubs gallops, or edema. Peripheral pulses intact bilaterally, capillary refill brisk distally Abdomen: Soft, non-tender, non-distended, normal bowel sounds. No guarding or rebound tenderness. Musculoskeletal: Normal range of motion and strength, no tenderness or swelling Skin: Skin is warm, dry, no rashes or lesions. Neurologic: Alert, awake and oriented x3. CN II-XII grossly intact. No focal neuro deficits. No signs of meningeal irritation noted. Psychiatric: Cooperative, appropriate mood and affect Objective Labs 07/27/25 05:35 07/27/25 05:35 Labs: Laboratory Results - last 24 hr 07/27/25 05:35 WBC 6.1 D RBC 3.47 L Hgb 10.7 L Hct 31.8 L MCV 92 MCH 30.8 MCHC 33.6 RDW Std Deviation 48.9 H Plt Count 138 L Neut % (Auto) 74 Lymph % (Auto) 17 [place] % (Auto) 8 Eos % (Auto) 2 Baso % (Auto) 0 Neut # (Auto) 4.5 Lymph # (Auto) 1.0 [place] # (Auto) 0.5 Eos # (Auto) 0.1 Baso # (Auto) 0.0 Immature Gran # (Auto) 0.01 H Absolute Nucleated RBC 0.00 Immature Gran % 0 Nucleated RBC % 0 Retic Count (auto) 1.0 Absolute Retic 33.3 Immature Retic Fraction 12.7 Retic Hgb Content CHr 33.4 Sodium 140 Potassium 3.4 Chloride 104 Carbon Dioxide 27.3 Anion Gap 9 BUN 10 Creatinine 0.7 Estim Creat Clear Calc 85.5 eGFR > 60 BUN/Creatinine Ratio 14 Glucose 94 Calculated Osmolality 278 Calcium 8.4 Corrected Calcium 9.0 Phosphorus 3.6 Magnesium 1.7 Iron 17 L TIBC 209 L Iron Saturation 8 L Unsat Iron Binding 192 L Ferritin 100 Total Bilirubin 0.7 AST 29 ALT 21 Alkaline Phosphatase 99 Total Protein 5.7 Albumin 3.3 L Globulin 2.4 Albumin/Globulin Ratio 1.4 Quality Measures Quality Measures none Assessment & Plan Assessment Current Active Medications: Generic Name Dose Route Start Last Admin Trade Name Freq PRN Reason Stop Dose Admin Acetaminophen 1,000 mg 07/25/25 17:20 Acetaminophen 500 Mg Tablet PO 08/24/25 17:19 Q6H PRN Fever >100.9 Aspirin 81 mg 07/26/25 09:00 07/26/25 08:14 Aspirin 81 Mg Chew PO 08/25/25 08:59 81 mg QDAY GAUDENCIO Administration Atorvastatin Calcium 40 mg 07/26/25 21:00 07/26/25 20:37 Atorvastatin Calcium 20 Mg Tablet PO 08/25/25 20:59 40 mg HS GAUDENCIO Administration Carvedilol 6.25 mg 07/26/25 09:00 07/26/25 17:17 Carvedilol 3.125 Mg Tablet PO 08/25/25 08:59 6.25 mg BIDWM GAUDENCIO Administration Clopidogrel Bisulfate 75 mg 07/26/25 09:00 07/26/25 09:11 Clopidogrel Bisulfate 75 Mg Tablet PO 08/25/25 08:59 Not Given On Hold: 07/26/25 13:28 QDAY GAUDENCIO Resume: 07/30/25 07:00 Dextrose 25 ml 07/25/25 17:46 Dextrose 50%-Water Inj 50 Ml Syringe IV 08/24/25 17:45 Q15MIN PRN BG 50-70 responsive npo pt Dextrose 50 ml 07/25/25 17:46 Dextrose 50%-Water Inj 50 Ml Syringe IV 08/24/25 17:45 Q15MIN PRN BG <50 OR BG <70 & pt unresponsive Ferrous Sulfate 325 mg 07/26/25 09:00 07/26/25 09:19 Ferrous Sulf 325 Mg Tablet PO 08/25/25 08:59 325 mg QDAY GAUDENCIO Administration Glucagon 1 mg 07/25/25 17:46 Glucagon Inj 1 Mg Vial IM Q15MIN PRN BG <70, and no IV access Heparin Sodium (Porcine) 5,000 unit 07/25/25 22:00 07/26/25 13:28 Heparin Sod Inj 5000 Unit/Ml Vial SC 08/08/25 21:59 Not Given On Hold: 07/26/25 13:28 Q8HR GAUDENCIO Resume: 07/27/25 13:00 Ceftriaxone Sodium/Dextrose 1 gm in 50 mls @ 100 mls/hr 07/26/25 09:00 07/26/25 08:16 Rocephin/D5w 1gm Iv Premix IV 08/02/25 08:59 100 mls/hr QDAY GAUDENCIO Administration Insulin Human Lispro 0 unit 07/26/25 07:30 07/26/25 16:58 Insulin Lispro (Admelog) 1 Unit/0.01 Ml Unit SC 08/25/25 07:29 Not Given AC GAUDENCIO Protocol Ondansetron HCl 4 mg 07/25/25 17:20 Ondansetron Inj 2 Mg/Ml Inj 2 Ml IVP 08/24/25 17:19 Q6H PRN NAUSEA OR VOMITING Protocol Sacubitril/Valsartan 1 tab 07/26/25 09:00 07/26/25 20:37 Sacubitril 24 Mg/Valsartan 26 Mg Tablet PO 08/25/25 08:59 1 tab BID GAUDENCIO Administration Sennosides 1 tab 07/26/25 08:34 Senna/Docusate Sod 1 Tab Tablet PO 08/25/25 08:33 QDAY PRN CONSTIPATION Protocol Plan Mr. Mann is an 80 y/o male with PMHx hypertension, T2DM, hypercholesterolemia, CVA in September 2020, who presented to the ED on 07/25 with weakness, chills, fever. Was found to have a left lower lobe opacity on chest x-ray suspicious for pneumonia as well as a temperature of 103 on arrival. Admitted for sepsis 2/2 pneumonia vs UTI. #Sepsis 2/2 #Community acquired pneumonia vs #Complicated Ecoli UTI #Hx recurrent complicated UTI #Urinary incontinence s/p prostatectomy (>25 years ago) #Elevated lactic acid - downtrending Initial presentation: Tmax 103, RR 24, generalized weakness Initial presentation c/w symptoms from previous stroke - infection may be causing recrudesence of stroke symptoms Lactic acid 2.9 --> 2.1; procal elevated 1.23 UA +nitrite, +LE, 4 RBC, 14 WBC, 1+ bacteria. Patient takes Januvia at home - may be cause of recurrent UTI Blood cx: 09/20 grew Gram positive cocci Ucx: E coli CXR: LLL opacity c/f PNA. Denies cough, chest pain qSOFA on admit: 1 Plan: - Pending repeat blood cx - Ceftriaxone 1 g IV (07/25 -) x5-7 days #Ischemic stroke left basal ganglia #Hypercholesterolemia Residual R sided weakness Lipid panel: Triglyceride 73, Cholesterol 74, LDL 29, HDL 30 ASCVD: unable to calculate due to outside age range Plan: - ASA 81 mg PO daily (home med) - Plavix 75 mg PO daily (home med) - held 2/2 oozing - Atorvastatin 40 mg PO QHS #A-fib Seen on repeated EKG in past Plan: - See above for antiplatelets - Not on anticoag 2/2 age, fall risk, lives alone #Type II diabetes A1C 5.6 Home med: Metformin 1000 mg BID, Januvia 100 mg daily Plan: - SSI - Consider d/c Januvia on discharge 2/2 UTI #History of hypertension #HFpEF Echo 02/2025: LVEF 55%. Mild aortic calcification Plan: - Carvedilol 6.25 mg BID (home med) - Entresto BID (home med) #Normocytic anemia No s/sx active bleed On admit hgb 12.1, HCT 36.3 Iron panel c/w iron deficiency Plan: - Ferrous sulfate 235 mg PO daily (home med) Checklist Dispo: IV abx, pending repeat blood cx Lines: PIV Diet: Carb consistent Bowel Reg: doc/senna PRN VTE ppx: heparin subQ GI ppx: n/a Pain mgmt: Tylenol PRN Code status: DNR/DNI Plan discussed with Dr. Betsy Sanderson and Dr. Deisy Agarwal MD PGY1
[2025-07-27] MEDS: ASPIRIN 81 MG CHEW PO (08:11)
[2025-07-27] MEDS: cefTRIAXone/D5w 1gm IV premix 1 GM/50 ML BAG IV (08:12)
[2025-07-27] MEDS: FERROUS SULF 325 MG TABLET PO (08:12)
--- NOTE | 2025-07-27 09:51 | ESDS_ITS ---
<Statement entered by Renetta Olivas DO - 07/27/25 17:01> I, Renetta Olivas DO, attest that I was physically present for the rush portions of the service and evaluated the patient with the resident and I reviewed and discussed the case with the resident and agree with the resident's findings and plans of care as documented above Planned Discharge Date 07/27/25 DS: Providers Provider Date of admission: 07/25/25 17:15 Primary care physician: Sanjay Paul MD Admitting Provider: Renetta Olivas DO Attending Provider on Admission: Renetta Olivas DO Consults: 07/26/25 08:35 Referral Physical Therapy Routine Comment: Physician Instructions: Attending Provider on DC: Alicia Agarwal MD Discharging Provider: Alicia Agarwal MD DS: Diagnosis Problem List Completed Was Problem List Reviewed/Reconciled?: Yes Hospital Course Hospital Course Hospital course: Hospital Course Mr. Mann is an 80 y/o male with PMH type 2 diabetes, ischemic stroke left basal ganglia, afib, HFpEF, HLD, recurrent UTI, and hypertension who was brought to ED 07/25 due to generalized weakness, increased urgency and frequency of urination. Patient states that he started feeling unwell overnight when he noticed to have increased urgency and frequency of urination. Found to have sepsis 2/2 complicated Ecoli UTI, possibly 2/2 Januvia, and possible community acquired pneumonia. IV Ceftriaxone started. Blood culture 1/2 grew gram positive cocci, most likely contamination, as repeat blood cultures were negative at 24 hours. Patient improved with antibiotics and was able to work with PT. Will be discharged home with PO Cefuroxime. Started atorvastatin 40 mg PO QHS. Continued home aspirin, plavix, carvedilol, and Entresto. Patient stable and medically cleared for discharge. Scheduled safe transport home with patient's family member. Diagnoses #Sepsis 2/2 #Complicated Ecoli UTI #Hx recurrent complicated UTI #Urinary incontinence s/p prostatectomy (>25 years ago) #Hx Ischemic stroke left basal ganglia #Hypercholesterolemia #A-fib #Type II diabetes #Hypertension #HFpEF #Iron deficiency anemia Discharge Instructions - Follow up with PCP within 1 week of discharge, if you do not have a primary care physician you can come see us at the [facility] by calling [phone] - Continue taking Aspirin, Plavix, Entresto, metformin, and iron supplement - Start taking Atorvastatin 40 mg once daily - Take Cefuroxime 250 mg twice daily for 5 days for UTI - Stop taking Januvia as this may be causing recurrent urinary tract infections - You have been prescribed a blood thinner, which can cause bleeding so please be careful with falls, if you have an injury or fall please immediately go to the ED - Continue rest of medications as previously prescribed - Return to the ED or call EMS if symptoms return and/or worsen Alicia Agarwal MD PGY1 Time Spent with Patient Time attestation: Total time spent providing and/or coordinating discharge services: Time spent: Greater than 30 minutes Exam Vital Signs Temp Pulse Resp BP Pulse Ox O2 Del Method 98.0 F 67 18 134/94 H 97 Room Air 07/27/25 04:00 07/27/25 08:11 07/27/25 07:25 07/27/25 08:11 07/27/25 04:00 07/27/25 04:00 Narrative Exam Gen: No acute distress HEENT: NCAT, PERRLOU, Sclera anicteric, conjunctiva noninjected, oral mucosa moist without erythema Neck: Supple, full range of motion, no LAD CV: RRR, no murmurs, rubs or gallops Resp: CTAB/L, no wheezing, rhonchi or rales GI: abdomen soft, bowel sounds noted, no tenderness to palpation, no guarding or rebound tenderness, no organomegaly Skin: clean, dry, no rashes, lesions or ecchymosis Ext: no clubbing, cyanosis, or edema Neuro: A&O x3, CN II- XII intact b/l, no focal neurological deficits Discharge Plan Plan Patient Disposition: HOME (Self Care) Patient condition on transfer: Stable Care Plan Goals: - Follow up with PCP within 1 week of discharge, if you do not have a primary care physician you can come see us at the [facility] by calling [phone] - Continue taking Aspirin, Plavix, Entresto, metformin, and iron supplement - Start taking Atorvastatin 40 mg once daily - Take Cefuroxime 250 mg twice daily for 5 days for UTI - Stop taking Januvia as this may be causing recurrent urinary tract infections - You have been prescribed a blood thinner, which can cause bleeding so please be careful with falls, if you have an injury or fall please immediately go to the ED - Continue rest of medications as previously prescribed - Return to the ED or call EMS if symptoms return and/or worsen Prescriptions/Referrals Prescriptions/Med Rec: New cefuroxime axetil 250 mg tablet 250 mg PO BID 5 Days Qty: 10 0RF Continued carvedilol [Coreg] 3.125 mg Tablet 6.25 mg PO BID metformin 1,000 mg tablet 1,000 mg PO BIDAC aspirin [Kathy Chewable Aspirin] 81 mg tablet,chewable 81 mg PO QDAY cranberry extract-multivitamin 1 ea .Route QDAY clopidogrel [Plavix] 75 mg tablet 75 mg PO QDAY ferrous sulfate 325 mg (65 mg iron) Tablet 325 mg PO QDAY sacubitril-valsartan [Entresto] 24-26 mg Tablet 1 tab PO BID Discontinued Januvia 100 mg Tablet 100 mg PO QDAY Referrals: Sanjay Paul MD [Primary Care Provider, Family Practice] Patient/Caregiver Discharge Instructions Discharge Activity: activity as tolerated Print Language: Portuguese Stand Alone Forms: Mari Award Info., Patient Portal Info Letter Discharge Order Discharge Orders: Discharge (Routine); Ordered 07/27/25 Ordered By: Alicia Agarwal Quality Discharge Quality Measures VTE prophylaxis
--- NOTE | 2025-07-27 12:50 | PC.SS ---
Mark Mnan is a 80 year-old male [facility] for [facility]. SS conducted bedside contact with the patient to complete initial assessment and to discuss discharge planning. Role and reason explained. Patient confirmed demographic information. Patient lives alone, and identifies his sister Renata Gonzalez [phone] as his surrogate decision maker. Pt states he is able to complete all ADL?s independent. Pt has an electric wheelchair, and FWW/Rollator. Pts PCP is Sanjay Paul (last vist 2 weeks ago). Pharmacy of choice is [facility]. Discharge options discussed and the pt wishes to return home.? Pt family will provide transport. No further intervention required at this time, social work msw would be available to address any further concerns. DC Plan: Home Contact: Sister Renata Address: Confirmed on face sheet PCP: Beverly Floyd
[2025-07-27] MEDS: HEPARIN SOD INJ 5000 UNIT/ML VIAL SC ×2 (14:25→21:37)
--- NOTE | 2025-07-27 14:38 | PC.SS ---
Rounding: Pending cultures, DC plan home when ready
[2025-07-27] MEDS: ATORVASTATIN CALCIUM 20 MG TABLET 40 MG PO (21:37)
[2025-07-28] VITALS (8 sets, daily range): BP systolic 125–134; BP diastolic 72–88; PULSE 53–79; RESP 17–96; TEMP 36.4–36.6; O2SAT 96–97
[2025-07-28 05:10] LABS: Basophils # (Auto) 0.0 Thou/mm3 (0.0-0.2); Basophils % (Auto) 1 % (0-2.5); Eosinophils # (Auto) 0.2 Thou/mm3 (0.0-0.5); Eosinophils % (Auto) 4 % (0-10); Hematocrit 32.9 % (41.0-53.0); Hemoglobin 11.1 g/dL (13.5-16.0); Immature Granulocytes Auto 0.01 Thou/mm3 (0.00-0.00); Lymphocytes # (Auto) 0.9 Thou/mm3 (1.0-4.8); Lymphocytes % (Auto) 19 % (10-50); Mean Corpuscular HGB Conc 33.7 g/dl (31.0-37.0); Mean Corpuscular Hemoglobin 30.7 pg (25.0-35.0); Mean Corpuscular Volume 91 fL (80-100); Monocytes # (Auto) 0.4 Thou/mm3 (0.0-0.8); Monocytes % (Auto) 10 % (0-12); Neutrophils # (Auto) 3.0 Thou/mm3 (1.8-7.7); Neutrophils % (Auto) 66 % (37-80); Nucleated Red Blood Cell # 0.00 Thou/mm3 (0.00-0.00); Nucleated Red Blood Cell % 0 /100 WBC (0); Platelet Count 160 Thou/mm3 (140-440); RDW Standard Deviation 48.1 fL (35.1-43.9); Red Blood Count 3.61 Miln/mm3 (4.50-5.90); White Blood Count 4.6 Thou/mm3 (3.8-10.6)
[2025-07-28] MEDS: HEPARIN SOD INJ 5000 UNIT/ML VIAL SC (05:14)
[2025-07-28 05:49] LABS: Alanine Aminotransferase 34 U/L (10-49); Albumin, Serum 3.4 gm/dL (3.4-4.8); Albumin/Globulin Ratio 1.4 (1.2-2.2); Alkaline Phosphatase 116 U/L (46-116); Anion Gap 8 (7-16); Aspartate Amino Transferase 57 U/L (0-34); BUN/Creatinine Ratio 20 Ratio (12-20); Bilirubin,Total 0.6 mg/dL (0.3-1.2); Blood Urea Nitrogen 12 mg/dL (9-23); Calcium 8.4 mg/dL (8.3-10.6); Calcium (Corrected) 8.9 mg/dL (8.5-10.1); Carbon Dioxide 28.7 mMol/L (20.0-31.0); Chloride 105 mMol/L (98-107); Creatinine (Component) 0.6 mg/dL (0.6-1.3); Estimated Creatinine Clearance 99.7 mL/min (>60); Globulin 2.4 gm/dL (2.3-3.5); Glucose 102 mg/dL (74-106); Magnesium 1.7 mg/dL (1.6-2.6); Osmolality,Calculated 282 (275-295); Phosphorous 3.6 mg/dL (2.4-5.1); Potassium 3.4 mMol/L (3.4-5.1); Sodium 142 mMol/L (136-145); Total Protein 5.8 gm/dL (5.7-8.2); eGFR > 60 See Note
--- NOTE | 2025-07-28 07:53 | ESDS_ITS ---
<Statement entered by Renetta Olivas DO - 07/28/25 15:38> I, Renetta Olivas DO, attest that I was physically present for the rush portions of the service and evaluated the patient with the resident and I reviewed and discussed the case with the resident and agree with the resident's findings and plans of care as documented above Planned Discharge Date 07/28/25 DS: Providers Provider Date of admission: 07/25/25 17:15 Primary care physician: Sanjay Paul MD Admitting Provider: Renetta Olivas DO Attending Provider on Admission: Renetta Olivas DO Consults: 07/26/25 08:35 Referral Physical Therapy Routine Comment: Physician Instructions: Attending Provider on DC: Ivy Cunningham MD Discharging Provider: Ivy Cunningham MD DS: Diagnosis Problem List Completed Was Problem List Reviewed/Reconciled?: Yes Hospital Course Hospital Course Hospital course: Hospital Course Mr. Mann is an 80 y/o male with PMH type 2 diabetes, ischemic stroke left basal ganglia, afib, HFpEF, HLD, recurrent UTI, and hypertension who was brought to ED 07/25 due to generalized weakness, increased urgency and frequency of urination. Patient states that he started feeling unwell overnight when he noticed to have increased urgency and frequency of urination. Found to have sepsis 2/2 complicated Ecoli UTI, possibly 2/2 Januvia, and possible community acquired pneumonia. IV Ceftriaxone started. Blood culture 1/2 grew gram positive cocci, most likely contamination, as repeat blood cultures were negative at 24 hours. Patient improved with antibiotics and was able to work with PT. Will be discharged home with PO Cefuroxime. Started atorvastatin 40 mg PO QHS. Continued home aspirin, plavix, carvedilol, and Entresto. Patient stable and medically cleared for discharge. Scheduled safe transport home with patient's family member. *discharge was intended 07/27, however transportation was unable to be safely arranged at that time Diagnoses #Sepsis 2/2 #Complicated Ecoli UTI #Hx recurrent complicated UTI #Urinary incontinence s/p prostatectomy (>25 years ago) #Hx Ischemic stroke left basal ganglia #Hypercholesterolemia #A-fib #Type II diabetes #Hypertension #HFpEF #Iron deficiency anemia Discharge Instructions - Follow up with PCP within 1 week of discharge, if you do not have a primary care physician you can come see us at the [facility] by calling [phone] - Continue taking Aspirin, Plavix, Entresto, metformin, and iron supplement - Start taking Atorvastatin 40 mg once daily - Take Cefuroxime 250 mg twice daily for 4 days for UTI - Stop taking Januvia as this may be causing recurrent urinary tract infections - You have been prescribed a blood thinner, which can cause bleeding so please be careful with falls, if you have an injury or fall please immediately go to the ED - Continue rest of medications as previously prescribed - Return to the ED or call EMS if symptoms return and/or worsen Plan discussed with my attending Dr. Olivas and my senior resident Dr. Isaiah Cunningham MD PGY1 Time Spent with Patient Time attestation: Total time spent providing and/or coordinating discharge services: Time spent: Greater than 30 minutes Exam Vital Signs Temp Pulse Resp BP Pulse Ox O2 Del Method 98 F 62 20 134/84 H 96 Room Air 07/28/25 04:00 07/28/25 06:58 07/28/25 06:58 07/28/25 04:00 07/28/25 04:00 07/28/25 04:00 Narrative Exam Gen: No acute distress, talkative and very grateful HEENT: NCAT, PERRLOU, Sclera anicteric, conjunctiva noninjected, oral mucosa moist without erythema poor dentition of the upper teeth Neck: Supple, full range of motion, no LAD CV: RRR, no murmurs, rubs or gallops Resp: CTAB/L, no wheezing, rhonchi or rales GI: abdomen soft, bowel sounds noted, no tenderness to palpation, no guarding or rebound tenderness, no organomegaly Skin: clean, dry, no rashes, lesions or ecchymosis Ext: no clubbing, cyanosis, or edema Neuro: A&O x3, CN II- XII intact b/l, no focal neurological deficits Discharge Plan Plan Patient Disposition: HOME (Self Care) Patient condition on transfer: Stable Care Plan Goals: - Follow up with PCP within 1 week of discharge, if you do not have a primary care physician you can come see us at the [facility] by calling [phone] - Continue taking Aspirin, Plavix, Entresto, metformin, and iron supplement - Start taking Atorvastatin 40 mg once daily - Take Cefuroxime 250 mg twice daily for 5 days for UTI - Stop taking Januvia as this may be causing recurrent urinary tract infections - You have been prescribed a blood thinner, which can cause bleeding so please be careful with falls, if you have an injury or fall please immediately go to the ED - Continue rest of medications as previously prescribed - Return to the ED or call EMS if symptoms return and/or worsen Prescriptions/Referrals Prescriptions/Med Rec: New cefuroxime axetil 250 mg tablet 250 mg PO BID 5 Days Qty: 10 0RF Continued carvedilol [Coreg] 3.125 mg Tablet 6.25 mg PO BID metformin 1,000 mg tablet 1,000 mg PO BIDAC aspirin [Kathy Chewable Aspirin] 81 mg tablet,chewable 81 mg PO QDAY cranberry extract-multivitamin 1 ea .Route QDAY clopidogrel [Plavix] 75 mg tablet 75 mg PO QDAY ferrous sulfate 325 mg (65 mg iron) Tablet 325 mg PO QDAY sacubitril-valsartan [Entresto] 24-26 mg Tablet 1 tab PO BID Discontinued Januvia 100 mg Tablet 100 mg PO QDAY Referrals: Sanjay Paul MD [Primary Care Provider, Family Practice] Patient/Caregiver Discharge Instructions Discharge Activity: activity as tolerated Print Language: German Stand Alone Forms: Mari Award Info., Patient Portal Info Letter Discharge Order Discharge Orders: Discharge (Routine); Ordered 07/28/25 Ordered By: Ivy Cunningham Quality Discharge Quality Measures VTE prophylaxis
[2025-07-28] MEDS: FERROUS SULF 325 MG TABLET PO (08:33)
[2025-07-28] MEDS: ASPIRIN 81 MG CHEW PO (08:33)
[2025-07-28] MEDS: cefTRIAXone/D5w 1gm IV premix 1 GM/50 ML BAG IV (08:39)
[2025-07-28] MEDS: Magnesium Sulfate 4 GM Ivpb 4 GM/50 ML BAG IV (08:39)
--- NOTE | 2025-07-28 10:08 | PC.NURSE ---
pt is running IV mag 4mg started at 0900, will discharge once mag is complete MD Olivas is aware
== END 2025-07-28 13:06 | disposition home or self-care (01) | DRG 871 ==
LOC: SERX 15:46 → SERHOLD 17:34 → S3NX 18:21
PROVIDERS: Nurse Practitioner Family; Admitting Provider Internal Medicine; Emergency Provider Family Medicine; PCP Family Medicine; Visit Provider Internal Medicine
DX: A41.51 Sepsis due to Escherichia coli [E. coli] (principal); J18.9 Pneumonia, unspecified organism; R57.8 Other shock; I69.351 Hemiplegia and hemiparesis following cerebral infarction affecting right dominant side; N39.0 Urinary tract infection, site not specified; I50.42 Chronic combined systolic (congestive) and diastolic (congestive) heart failure; R65.20 Severe sepsis without septic shock; I11.0 Hypertensive heart disease with heart failure; E78.00 Pure hypercholesterolemia, unspecified; D50.9 Iron deficiency anemia, unspecified; E11.9 Type 2 diabetes mellitus without complications; I48.91 Unspecified atrial fibrillation; Z79.84 Long term (current) use of oral hypoglycemic drugs; Z66 Do not resuscitate; Z79.02 Long term (current) use of antithrombotics/antiplatelets; Z79.82 Long term (current) use of aspirin; Z79.899 Other long term (current) drug therapy; Z90.79 Acquired absence of other genital organ(s); Z87.440 Personal history of urinary (tract) infections
CPT/HCPCS: 36415; 51701; 71045; 80053; 80061; 81001; 82728; 83036; 83540; 83550; 83605; 83615; 83690; 83735; 83880; 84100; 84145; 84484; 85025; 85046; 85610; 85730; 87040; 87077; 87086; 87186; 87502; 87635; 93005; 93225; 96361; 96365; 97162; 99284; J0696; J1644; J3475; J7120; A9270

== ENCOUNTER → 2025-09-02 | Outpatient (CLI) | payer MEDICARE, BC, SELFPAY ==
[2025-09-02 14:29] LABS: Collection Type, Urine Clean Catch
[2025-09-02 17:01] LABS: Bilirubin,Urine Negative (Negative); Blood,Urine Negative (Negative); Color,Urine Yellow (Lt Yel-Yel); Glucose, Urine Negative (Negative); Hyaline Casts,Urine < 1 /hpf (0-1); Ketones,Urine Negative (Negative); Leukocyte Esterase,Urine Positive (Negative); Nitrite,Urine Negative (Negative); PH,Urine 6.0 (5.0-7.0); Protein,Urine 1+ (Neg - Trace); RBC,Urine 2 /hpf (0-3); Specific Gravity,Urine 1.024 (1.001-1.035); Squamous Epithelial Cell,Urine 1 /hpf (0-5); Urobilinogen,Urine Negative mg/dL (0.0-1.0); WBC,Urine 20 /hpf (0-5)
[2025-09-02 17:02] LABS: Clarity,Urine Hazy (Clear/Hazy)
== END | disposition home or self-care (01) ==
LOC: SLDO 14:12
PROVIDERS: Referring Provider Family Medicine; Visit Provider Family Medicine
DX: N30.00 Acute cystitis without hematuria (principal)
CPT/HCPCS: 81001; 87077; 87086; 87186